=== PATIENT | female | born 1955 | race Caucasian/White ===

== ENCOUNTER 2017-09-25 08:41 | Emergency (ER) | payer MEDICARE, OTHER ==
[~2017-09-25] VITALS: Ht 165.1 cm; Wt 49.9 kg
[~2017-09-25 08:41] MED LIST: BENZ1TAB PO; BISA5TAB64 PO; CALC500T19 PO; CALC625 PO; CARB200 PO; ESZO2 PO; LEVA500T PO; LITH300C2 PO; PERI8.6T PO; POLY3.5O EACH EYE; RISP4TAB41 PO; SYMB160A INH; TRAZ100 PO; VITA100018 PO
[2017-09-25 08:43] VITALS: BP 111/53; PULSE 104; RESP 14; TEMP 97.5; O2SAT 97
[2017-09-25 09:43] LABS: AUTOMATED NEUTROPHIL # 5.2 TH/MM3 (1.8-7.7); BASOPHIL # 0.1 TH/MM3 (0-0.2); BASOPHIL % 1.2 % (0.0-2.0); EOSINOPHIL # 0.1 TH/MM3 (0-0.4); EOSINOPHIL % 0.8 % (0.0-4.0); HEMOGLOBIN 13.3 GM/DL (11.6-15.3); LYMPH % 13.6 % (9.0-44.0); LYMPHOCYTE # 0.9 TH/MM3 (1.0-4.8); MEAN CELL VOLUME 91.6 FL (80.0-100.0); MEAN CORPUSCULAR HEMOGLOBIN 31.2 PG (27.0-34.0); MEAN PLATELET VOLUME 8.1 FL (7.0-11.0); MONO % 5.4 % (0.0-8.0); MONOCYTE # 0.4 TH/MM3 (0-0.9); PLATELET COUNT 295 TH/MM3 (150-450); RED BLOOD COUNT 4.25 MIL/MM3 (4.00-5.30); WHITE BLOOD COUNT 6.6 TH/MM3 (4.0-11.0)
[2017-09-25 09:45] LABS: BACTERIA, URINE RARE /hpf; BILIRUBIN, URINE NEG (NEG); BLOOD, URINE NEG (NEG); GLUCOSE,URINE NEG (NEG); KETONE, URINE 10 mg/dL (NEG); MUCUS URINE FEW /lpf (OCC); NITRITE,URINE NEG (NEG); SQUAMOUS EPITHELIAL CELL URINE 6 /hpf (0-5); URINE COLOR YELLOW (YELLW/STRAW); URINE LEUKOCYTE ESTERASE TRACE (NEG)
[2017-09-25 09:55] LABS: ALBUMIN 3.7 GM/DL (3.4-5.0); AST (GOT) 10 U/L (15-37); BICARBONATE 25.7 MEQ/L (21.0-32.0); BLOOD UREA NITROGEN 10 MG/DL (7-18); CALCIUM 9.1 MG/DL (8.5-10.1); CHLORIDE 109 MEQ/L (98-107); CREATININE 1.03 MG/DL (0.50-1.00); GLOMERULAR FILTRATION RATE 55 ML/MIN (>89); GLUCOSE,RANDOM 108 MG/DL (74-106); SODIUM (NA) 142 MEQ/L (136-145)
[2017-09-25 09:56] LABS: ALT (GPT) 17 U/L (10-53)
--- NOTE | 2017-09-25 09:58 | PD ---
HPI . Poor appetite Chief Complaint: Medical Clearance Time Seen by Provider: 09:05 Travel History International Travel<30 days: No Contact w/Intl Traveler<30days: No Traveled to known affect area: No History of Present Illness HPI This is a psychiatric patient who lives at an assisted living facility who is brought in by a from the facility chief complaint of poor appetite. This is been ongoing for the last several weeks. The song lyricist believes that she has lost about 15 pounds. In addition, the patient has reportedly not been as active as usual. The patient reports that she is a vegetarian and does not like the food served at the [facility]. She states that she buys and eats her own food. Patient herself has no complaints. PFSH Past Medical History Hx Anticoagulant Therapy: No Arthritis: Yes Asthma: No Autoimmune Disease: No Blood Disorders: No Bipolar Disorder: Yes Anxiety: Yes Depression: Yes Heart Rhythm Problems: No Cancer: No Cardiovascular Problems: No High Cholesterol: Yes Chemotherapy: No Chest Pain: No Congestive Heart Failure: No COPD: No Cerebrovascular Accident: No Diabetes: No Diminished Hearing: No Endocrine: No Gastrointestinal Disorders: Yes GERD: No Genitourinary: No Headaches: Yes Hepatitis: No Hiatal Hernia: No Hypertension: No Immune Disorder: No Kidney Stones: No Musculoskeletal: No Neurologic: No Psychiatric: Yes (bipolar,schizoaffective) Reproductive: No Respiratory: Yes Immunizations Current: No (UNABLE TO OBTAIN) Migraines: Yes Myocardial Infarction: No Radiation Therapy: No Renal Failure: No Schizophrenia: Yes Seizures: Yes (witnessed in E.D.,, pt denies hx of) Sleep Apnea: No Ulcer: No Menopausal: Yes : 1 Para: 1 Miscarriage: 0 : 0 Ectopic : No Ovarian Cysts: No Dilation and Curettage (D&C): No Tubal Ligation: No Past Surgical History Abdominal Surgery: No Appendectomy: No Cardiac Surgery: No Section: No Cholecystectomy: No Ear Surgery: No Endocrine Surgery: No Eye Surgery: No Genitourinary Surgery: No Gynecologic Surgery: No Hysterectomy: No Neurologic Surgery: No Oral Surgery: No Pacemaker: No Thoracic Surgery: No Other Surgery: Yes Social History Alcohol Use: No Tobacco Use: Yes Substance Use: No Allergies-Medications (Allergen,Severity, Reaction): Coded Allergies: chlorpromazine (Unverified Allergy, Severe, SWOLLEN TONGUE, 03/18/17) codeine (Unverified Allergy, Severe, 03/18/17) divalproex sodium (Unverified Allergy, Severe, SWOLLEN TONGUE, 03/18/17) haloperidol (Unverified Allergy, Severe, 03/18/17) thioridazine (Unverified Allergy, Severe, SWOLLEN TONGUE, 03/18/17) thiothixene (Unverified Allergy, Severe, 03/18/17) Reported Meds & Prescriptions Reported Meds & Active Scripts Active Polysporin (Bacitracin/Polymyxin B Sulfate) 3.5 Applic/3.5 Gm Oint 1 Applic EACH EYE Q4HR 7 Days Levaquin 500 Mg Tab (Levofloxacin) 500 Mg Tab 500 Mg PO DAILY 7 Days Tegretol 200 Mg Tab (Carbamazepine) 200 Mg Tab 200 Mg PO Q12HR 30 Days Reported Vitamin D (Cholecalciferol) 1,000 Unit Tab 1,000 Unit PO DAILY Trazodone Hcl (Trazodone HCl) 100 Mg Tab 100 Mg PO HS Symbicort (Budesonide/Formoterol Fumarate) 160 Mcg/4.5 Mcg Aer 2 Puff INH BID * SHAKE WELL BEFORE USE * Eskalith ([place] Carbonate) 300 Mg Cap 600 Mg PO HS Fiber Con (Calcium Polycarbophil) 625 Mg Tab 625 Mg PO BID Lunesta (Eszopiclone) 2 Mg Tab 2 Mg PO HS Alexandra-Colace 8.6-50 mg (Sennosides-Docusate Sodium) 1 Tab Tab 1 Tab PO BID Calcium 500 Mg Tab 500 Mg PO DAILY Bisacodyl 5 Mg Tab 5 Mg PO DIRECTED TAKE ON FRIDAY, FRIDAY & FRIDAY @ 4PM Benztropine Mesylate 1 Mg Tab 1 Mg PO BID Risperdal (Risperidone) 4 Mg Tab 4 Mg PO HS Review of Systems General / Constitutional: Positive: Weight Loss Gastrointestinal: Positive: Loss of Appetite Physical Exam Narrative GENERAL: Awake and alert. She is a thin woman. Weight today is 49.9 kg. Her weight in mid August was 54.5 kg. SKIN: warm/dry. Normal color and turgor. HEAD: Normocephalic. Atraumatic. EYES: Pupils equal and round. No scleral icterus. No injection or drainage. ENT: No nasal bleeding or discharge. Mucous membranes pink and moist. NECK: Trachea midline. Full range of motion without pain.. CARDIOVASCULAR: Regular rate and rhythm. RESPIRATORY: No accessory muscle use. Clear to auscultation. Breath sounds equal bilaterally. GASTROINTESTINAL: Abdomen soft. Nontender. Bowel sounds present. Nondistended. MUSCULOSKELETAL: No obvious deformities. NEUROLOGICAL: Awake and alert. No obvious cranial nerve deficits. Motor grossly within normal limits. Normal speech. PSYCHIATRIC: Appropriate mood and affect; insight and judgment normal. Data Data Last Documented VS Vital Signs Date Time Temp Pulse Resp B/P (MAP) Pulse Ox O2 Delivery O2 Flow Rate FiO2 09/25/17 08:43 97.5 104 14 111/53 (72) 97 Orders Orders Complete Blood Count With Diff (09/25/17 09:07) Comprehensive Metabolic Panel (09/25/17 09:07) Thyroid Stimulating Hormone (09/25/17 09:07) Urinalysis - C+S If Indicated (09/25/17 09:07) Drug Screen, Random Urine (09/25/17 09:07) Psych Screen (09/25/17 10:15) Labs Laboratory Tests Test 09/25/17 09:20 09/25/17 09:25 Urine Color YELLOW Urine Turbidity HAZY Urine pH 7.0 Urine Specific [place] 1.009 Urine Protein NEG mg/dL Urine Glucose (UA) NEG mg/dL Urine Ketones 10 mg/dL Urine Occult Blood NEG Urine Nitrite NEG Urine Bilirubin NEG Urine Urobilinogen LESS THAN 2.0 MG/DL Urine Leukocyte Esterase TRACE Urine RBC 1 /hpf Urine WBC 2 /hpf Urine Squamous Epithelial Cells 6 /hpf Urine Bacteria RARE /hpf Urine Mucus FEW /lpf Microscopic Urinalysis Comment CULT NOT INDICATED Urine Opiates Screen NEG Urine Barbiturates Screen NEG Urine Amphetamines Screen NEG Urine Benzodiazepines Screen NEG Urine Cocaine Screen NEG Urine Cannabinoids Screen NEG White Blood Count 6.6 TH/MM3 Red Blood Count 4.25 MIL/MM3 Hemoglobin 13.3 GM/DL Hematocrit 39.0 % Mean Corpuscular Volume 91.6 FL Mean Corpuscular Hemoglobin 31.2 PG Mean Corpuscular Hemoglobin Concent 34.0 % Red Cell Distribution Width 14.0 % Platelet Count 295 TH/MM3 Mean Platelet Volume 8.1 FL Neutrophils (%) (Auto) 79.0 % Lymphocytes (%) (Auto) 13.6 % Monocytes (%) (Auto) 5.4 % Eosinophils (%) (Auto) 0.8 % Basophils (%) (Auto) 1.2 % Neutrophils # (Auto) 5.2 TH/MM3 Lymphocytes # (Auto) 0.9 TH/MM3 Monocytes # (Auto) 0.4 TH/MM3 Eosinophils # (Auto) 0.1 TH/MM3 Basophils # (Auto) 0.1 TH/MM3 CBC Comment DIFF FINAL Differential Comment Blood Urea Nitrogen 10 MG/DL Creatinine 1.03 MG/DL Random Glucose 108 MG/DL Total Protein 6.3 GM/DL Albumin 3.7 GM/DL Calcium Level 9.1 MG/DL Alkaline Phosphatase 39 U/L Aspartate Amino Transf (AST/SGOT) 10 U/L Alanine Aminotransferase (ALT/SGPT) 17 U/L Total Bilirubin 0.5 MG/DL Sodium Level 142 MEQ/L Potassium Level 3.9 MEQ/L Chloride Level 109 MEQ/L Carbon Dioxide Level 25.7 MEQ/L Anion Gap 7 MEQ/L Estimat Glomerular Filtration Rate 55 ML/MIN Thyroid Stimulating Hormone 3rd Gen 0.838 uIU/ML MDM Medical Decision Making Medical Screen Exam Complete: Yes Emergency Medical Condition: Yes Medical Record Reviewed: Yes (she has a history of schizoaffective disorder) Differential Diagnosis Differential diagnosis includes but is not limited to dehydration, malnutrition , depression, occult infection Narrative Course This is a psychiatric patient who lives at an [facility] who is brought in to us by a staff member from the [facility] with the chief complaint of poor appetite and weight loss over the course of the last several weeks. The patient has also reportedly had decreased physical activity. CBC & BMP Diagram 09/25/17 09:25 Total Protein 6.3 L, Albumin 3.7, Calcium Level 9.1, Alkaline Phosphatase 39 L, Aspartate Amino Transf (AST/SGOT) 10 L, Alanine Aminotransferase (ALT/SGPT) 17, Total Bilirubin 0.5 UA and tox screen are negative. She is medically clear for psychiatric evaluation. Diagnosis Primary Impression: Schizoaffective disorder, bipolar type Condition: Stable Concepcion Bowers MD Sep 25, 2017 09:58
[2017-09-25 10:06] LABS: ALKALINE PHOSPHATASE 39 U/L (45-117); TOTAL BILIRUBIN ADULT 0.5 MG/DL (0.2-1.0); TOTAL PROTEIN 6.3 GM/DL (6.4-8.2)
[2017-09-25] MEDS ORDERED: SODIUM CHLOR 0.9% 1000 ML INJ 1,000 ML IV ONE (10:45)
[2017-09-25] MEDS ORDERED: VITA1000 PO (14:11)
[2017-09-25] MEDS ORDERED: LITH300T PO (14:11)
[2017-09-25] MEDS ORDERED: DOCU8.6T PO (14:11)
[2017-09-25] MEDS ORDERED: FLEE5TAB PO (14:11)
[2017-09-25] MEDS ORDERED: INVE6TAB3 PO (14:11)
[2017-09-25] MEDS ORDERED: VENTAER INH (14:11)
[2017-09-25] MEDS ORDERED: IBUP1TAB7 PO (14:11)
[2017-09-25] MEDS ORDERED: MULT-65 PO (14:11)
--- NOTE | 2017-09-25 14:14 | PD ---
Physical Exam Time Seen by Provider: 14:12 CASANDRA Gonzalez has evaluated patient, lipid to be correct and cleared the patient for discharge. The patient will be transported back to her living facility, [facility]. Data Data Last Documented VS Vital Signs Date Time Temp Pulse Resp B/P (MAP) Pulse Ox O2 Delivery O2 Flow Rate FiO2 09/25/17 08:43 97.5 104 14 111/53 (72) 97 Orders Orders Complete Blood Count With Diff (09/25/17 09:07) Comprehensive Metabolic Panel (09/25/17 09:07) Thyroid Stimulating Hormone (09/25/17 09:07) Urinalysis - C+S If Indicated (09/25/17 09:07) Drug Screen, Random Urine (09/25/17 09:07) Psych Screen (09/25/17 10:15) Sodium Chlor 0.9% 1000 Ml Inj (Ns 1000 M (09/25/17 10:45) Diet Regular Basic (09/25/17 Lunch) Labs Laboratory Tests Test 09/25/17 09:20 09/25/17 09:25 Urine Color YELLOW Urine Turbidity HAZY Urine pH 7.0 Urine Specific [place] 1.009 Urine Protein NEG mg/dL Urine Glucose (UA) NEG mg/dL Urine Ketones 10 mg/dL Urine Occult Blood NEG Urine Nitrite NEG Urine Bilirubin NEG Urine Urobilinogen LESS THAN 2.0 MG/DL Urine Leukocyte Esterase TRACE Urine RBC 1 /hpf Urine WBC 2 /hpf Urine Squamous Epithelial Cells 6 /hpf Urine Bacteria RARE /hpf Urine Mucus FEW /lpf Microscopic Urinalysis Comment CULT NOT INDICATED Urine Opiates Screen NEG Urine Barbiturates Screen NEG Urine Amphetamines Screen NEG Urine Benzodiazepines Screen NEG Urine Cocaine Screen NEG Urine Cannabinoids Screen NEG White Blood Count 6.6 TH/MM3 Red Blood Count 4.25 MIL/MM3 Hemoglobin 13.3 GM/DL Hematocrit 39.0 % Mean Corpuscular Volume 91.6 FL Mean Corpuscular Hemoglobin 31.2 PG Mean Corpuscular Hemoglobin Concent 34.0 % Red Cell Distribution Width 14.0 % Platelet Count 295 TH/MM3 Mean Platelet Volume 8.1 FL Neutrophils (%) (Auto) 79.0 % Lymphocytes (%) (Auto) 13.6 % Monocytes (%) (Auto) 5.4 % Eosinophils (%) (Auto) 0.8 % Basophils (%) (Auto) 1.2 % Neutrophils # (Auto) 5.2 TH/MM3 Lymphocytes # (Auto) 0.9 TH/MM3 Monocytes # (Auto) 0.4 TH/MM3 Eosinophils # (Auto) 0.1 TH/MM3 Basophils # (Auto) 0.1 TH/MM3 CBC Comment DIFF FINAL Differential Comment Blood Urea Nitrogen 10 MG/DL Creatinine 1.03 MG/DL Random Glucose 108 MG/DL Total Protein 6.3 GM/DL Albumin 3.7 GM/DL Calcium Level 9.1 MG/DL Alkaline Phosphatase 39 U/L Aspartate Amino Transf (AST/SGOT) 10 U/L Alanine Aminotransferase (ALT/SGPT) 17 U/L Total Bilirubin 0.5 MG/DL Sodium Level 142 MEQ/L Potassium Level 3.9 MEQ/L Chloride Level 109 MEQ/L Carbon Dioxide Level 25.7 MEQ/L Anion Gap 7 MEQ/L Estimat Glomerular Filtration Rate 55 ML/MIN Thyroid Stimulating Hormone 3rd Gen 0.838 uIU/ML MDM Supervised Visit with RADHA: No Narrative Course CASANDRA Driscoll has evaluated patient, lipid to be correct and cleared the patient for discharge. The patient will be transported back to her living facility, [facility]. Patient contracts safety. Denies suicidal or homicidal ideations. Patient will be provided community resource packet to /[facility] for follow-up. Has friends and family for support. Patient was medically cleared by alternate provider prior to psych screening. Patient has been evaluated by psychiatry and and is now cleared for discharge. Diagnosis Primary Impression: Schizoaffective disorder, bipolar type Referrals: [facility] (Out patient) [facility] Primary Care Physician Psychiatrist Tyra WEAVER Behavioral Patient Instructions: General Instructions, Schizoaffective Disorder (ED) Additional Instruction: Contract safety to your self and others Follow-up with psychiatry Follow-up with primary care provider Follow-up with Chris Demarco Return to the emergency department immediately with worsening of symptoms Med/Other Pt SpecificInfo: No Change to Meds, No Meds Exist/No RX given Disposition: 01 DISCHARGE HOME Condition: Stable Shira Hart Sep 25, 2017 14:14
--- NOTE | 2017-09-25 14:24 | PD ---
History of Present Illness Chief Complaint: Schizoaffective disorder Time Seen by Provider: 13:55 Travel History International Travel<30 Days: No Contact w/Intl Traveler<30days: No Known affected area: No Legal Status Legal Status: Voluntary History of Present Illness: 61-year-old single female presents voluntarily to the emergency department from [facility] for not eating. Patient denies having any complaints other than "I do not like the food". She denies SI, HI, audiovisual hallucinations, and does not appear delusional. Reviewed electronic medical record and labs. Discussed patient with staff. Patient was evaluated in [facility]. She is awake alert and oriented. Patient has slender frame and is well-groomed. Her speech is clear and organized. She denies feeling depressed. When asked why she was here she responded "they say I have not been eating". When asked why she was not eating she responded "because I do not like the food". She also states that she is not happy with the facility conditions nor the area which is located. Patient does not meet criteria for admission. PFSH Past Medical History Narrative Medical Medically cleared in the emergency department. Hx Anticoagulant Therapy: No Arthritis: Yes Asthma: No Autoimmune Disease: No Blood Disorders: No Bipolar Disorder: Yes Anxiety: Yes Depression: Yes Heart Rhythm Problems: No Cancer: No Cardiovascular Problems: No High Cholesterol: Yes Chemotherapy: No Chest Pain: No Congestive Heart Failure: No COPD: No Cerebrovascular Accident: No Diabetes: No Diminished Hearing: No Endocrine: No Gastrointestinal Disorders: Yes GERD: No Genitourinary: No Headaches: Yes Hepatitis: No Hiatal Hernia: No Hypertension: No Immune Disorder: No Kidney Stones: No Musculoskeletal: No Neurologic: No Psychiatric: Yes (bipolar,schizoaffective) Reproductive: No Respiratory: Yes Immunizations Current: No (UNABLE TO OBTAIN) Migraines: Yes Myocardial Infarction: No Radiation Therapy: No Renal Failure: No Schizophrenia: Yes Seizures: Yes (witnessed in E.D.,, pt denies hx of) Sleep Apnea: No Ulcer: No Menopausal: Yes : 1 Para: 1 Miscarriage: 0 : 0 Ectopic : No Ovarian Cysts: No Dilation and Curettage (D&C): No Tubal Ligation: No Past Surgical History Abdominal Surgery: No Appendectomy: No Cardiac Surgery: No Section: No Cholecystectomy: No Ear Surgery: No Endocrine Surgery: No Eye Surgery: No Genitourinary Surgery: No Gynecologic Surgery: No Hysterectomy: No Neurologic Surgery: No Oral Surgery: No Pacemaker: No Thoracic Surgery: No Other Surgery: Yes Psychiatric History Psychiatric History Patient has extensive psychiatric history with multiple admissions here and to [facility]. Hx Psychiatric Treatment: PT HAS A LONG HISTORY MENTAL ILLNESS, SCHIZOAFFECTIVE DISORDER , DEPRESSION. PER OLD RECORDS HAS HAD ECT TREATMENTS. PT HAS BEEN ADMITTED TO [facility] AND [facility] History of Inpatient Treatment: Yes Guns or firearms in home: No Social History Resides at [facility] for ~ past 3 years. Hx Alcohol Use: No Hx Tobacco Use: Yes Hx Substance Use: No Substance Use Type: Nicotine/Cigarettes Other Substances Used: DENIED Hx of Substance Use Treatment: No Allergies-Medications (Allergen,Severity, Reaction): Coded Allergies: chlorpromazine (Unverified Allergy, Severe, SWOLLEN TONGUE, 03/18/17) codeine (Unverified Allergy, Severe, 03/18/17) divalproex sodium (Unverified Allergy, Severe, SWOLLEN TONGUE, 03/18/17) haloperidol (Unverified Allergy, Severe, 03/18/17) thioridazine (Unverified Allergy, Severe, SWOLLEN TONGUE, 03/18/17) thiothixene (Unverified Allergy, Severe, 03/18/17) Reported Meds & Prescriptions Reported Meds & Active Scripts Active Narrative Medication Compliant with medications. Mental Status Examination Appearance: Appropriate, Well dressed/well groomed Consciousness: Alert Orientation: x4 Motor Activity: Normal gait Speech: Unremarkable Language: Adequate Fund of Knowledge: Adequate Attention and Concentration: Adequate Memory: Impaired (Reports memory loss due to multiple ECTs) Mood: Appropriate Affect: Appropriate Thought Process & Associations: Intact Thought Content: Appropriate Hallucination Type: None Delusion Type: None Suicidal Ideation: No Suicidal Plan: No Suicidal Intention: No Homicidal Ideation: No Homicidal Plan: No Homicidal Intention: No Insight: Adequate Judgment: Adequate [facility] Medical Decision Making Medical Record Reviewed: Yes Assessment/Plan 61-year-old single, female presents voluntarily to the emergency department for reports of not eating. Although patient has an extensive psychiatric history and multiple inpatient admissions, she does not meet admission criteria at this time. She denies thoughts of self-harm, harming anyone else, auditory or visual hallucinations, and this provider cannot elicit any indications of delusions. Patient is compliant with medications. She reports that she is not eating due to a dislike of the food provided and the facility in general. Advised patient that she will be discharged back to [facility] as this is a social issue, and if she is unhappy there she should seek out alternative living arrangements. Request HC Surrog/Guard Advoc?: No Orders Orders Complete Blood Count With Diff (09/25/17 09:07) Comprehensive Metabolic Panel (09/25/17 09:07) Thyroid Stimulating Hormone (09/25/17 09:07) Urinalysis - C+S If Indicated (09/25/17 09:07) Drug Screen, Random Urine (09/25/17 09:07) Psych Screen (09/25/17 10:15) Sodium Chlor 0.9% 1000 Ml Inj (Ns 1000 M (09/25/17 10:45) Diet Regular Basic (09/25/17 Lunch) Results Vital Signs Date Time Temp Pulse Resp B/P (MAP) Pulse Ox O2 Delivery O2 Flow Rate FiO2 09/25/17 08:43 97.5 104 14 111/53 (72) 97 Laboratory Tests Test 09/25/17 09:20 09/25/17 09:25 Urine Color YELLOW Urine Turbidity HAZY Urine pH 7.0 Urine Specific [place] 1.009 Urine Protein NEG Urine Glucose (UA) NEG Urine Ketones 10 Urine Occult Blood NEG Urine Nitrite NEG Urine Bilirubin NEG Urine Urobilinogen LESS THAN 2.0 Urine Leukocyte Esterase TRACE Urine RBC 1 Urine WBC 2 Urine Squamous Epithelial Cells 6 Urine Bacteria RARE Urine Mucus FEW Microscopic Urinalysis Comment CULT NOT INDICATED Urine Opiates Screen NEG Urine Barbiturates Screen NEG Urine Amphetamines Screen NEG Urine Benzodiazepines Screen NEG Urine Cocaine Screen NEG Urine Cannabinoids Screen NEG White Blood Count 6.6 Red Blood Count 4.25 Hemoglobin 13.3 Hematocrit 39.0 Mean Corpuscular Volume 91.6 Mean Corpuscular Hemoglobin 31.2 Mean Corpuscular Hemoglobin Concent 34.0 Red Cell Distribution Width 14.0 Platelet Count 295 Mean Platelet Volume 8.1 Neutrophils (%) (Auto) 79.0 Lymphocytes (%) (Auto) 13.6 Monocytes (%) (Auto) 5.4 Eosinophils (%) (Auto) 0.8 Basophils (%) (Auto) 1.2 Neutrophils # (Auto) 5.2 Lymphocytes # (Auto) 0.9 Monocytes # (Auto) 0.4 Eosinophils # (Auto) 0.1 Basophils # (Auto) 0.1 CBC Comment DIFF FINAL Differential Comment Blood Urea Nitrogen 10 Creatinine 1.03 Random Glucose 108 Total Protein 6.3 Albumin 3.7 Calcium Level 9.1 Alkaline Phosphatase 39 Aspartate Amino Transf (AST/SGOT) 10 Alanine Aminotransferase (ALT/SGPT) 17 Total Bilirubin 0.5 Sodium Level 142 Potassium Level 3.9 Chloride Level 109 Carbon Dioxide Level 25.7 Anion Gap 7 Estimat Glomerular Filtration Rate 55 Thyroid Stimulating Hormone 3rd Gen 0.838 Diagnosis Primary Impression: Schizoaffective disorder, bipolar type Condition: Stable Donna Sumner Sep 25, 2017 14:24
== END 2017-09-25 16:47 | disposition home or self-care (01) ==
LOC: NEPJ 08:41
DX: F25.0 Schizoaffective disorder, bipolar type (principal); F17.210 Nicotine dependence, cigarettes, uncomplicated; Z79.899 Other long term (current) drug therapy
CPT/HCPCS: 80053; 80307; 81001; 84443; 85025; 99283; J7030

== ENCOUNTER 2017-10-15 15:35 | Emergency (ER) | payer MEDICARE, OTHER ==
[~2017-10-15] VITALS: Ht 162.6 cm; Wt 48.0 kg
[~2017-10-15 15:35] MED LIST changes: -BENZ1TAB PO; -BISA5TAB64 PO; -CALC500T19 PO; -CALC625 PO; -CARB200 PO; +DOCU8.6T PO; -ESZO2 PO; +FLEE5TAB PO; +IBUP1TAB7 PO; +INVE6TAB3 PO; -LEVA500T PO; -LITH300C2 PO; +LITH300T PO; +MULT-65 PO; -PERI8.6T PO; -POLY3.5O EACH EYE; -RISP4TAB41 PO; -SYMB160A INH; -TRAZ100 PO; +VENTAER INH; +VITA1000 PO; -VITA100018 PO
[2017-10-15 16:05] VITALS: BP 93/57; PULSE 87; RESP 17; TEMP 98.5; O2SAT 100
--- NOTE | 2017-10-15 17:28 | PD ---
HPI Chief Complaint: Complaint Time Seen by Provider: 16:51 Travel History International Travel<30 days: No Contact w/Intl Traveler<30days: No Traveled to known affect area: No History of Present Illness HPI 62-year-old female complains memory problem and problem with urination and bowel movement. Patient has history of bipolar disorder and schizophrenia. Patient states that for the past 2 months she has problem with short-term and long-term memory. Patient denies any headache. Patient denies any visual change. Patient denies any neck pain. Patient denies any chest pain or shortness of breath. Patient denies abdominal pain. Patient states that she has decreased urine output recently. Patient states that she only urinate with bowel movement. Patient denies any nausea vomiting diarrhea. Patient denies any dysuria or frequency. Patient denies any vaginal discharge or bleeding. PFSH Past Medical History Hx Anticoagulant Therapy: No Arthritis: Yes Asthma: No Autoimmune Disease: No Blood Disorders: No Bipolar Disorder: Yes Anxiety: Yes Depression: Yes Heart Rhythm Problems: No Cancer: No Cardiovascular Problems: No High Cholesterol: Yes Chemotherapy: No Chest Pain: No Congestive Heart Failure: No COPD: No Cerebrovascular Accident: No Diabetes: No Diminished Hearing: No Endocrine: No Gastrointestinal Disorders: Yes GERD: No Genitourinary: No Headaches: Yes Hepatitis: No Hiatal Hernia: No Hypertension: No Immune Disorder: No Kidney Stones: No Musculoskeletal: No Neurologic: No Psychiatric: Yes (bipolar,schizoaffective) Reproductive: No Respiratory: Yes Immunizations Current: No (UNABLE TO OBTAIN) Migraines: Yes Myocardial Infarction: No Radiation Therapy: No Renal Failure: No Schizophrenia: Yes Seizures: Yes (witnessed in E.D.,, pt denies hx of) Sleep Apnea: No Ulcer: No ?: Not Menopausal: Yes : 1 Para: 1 Miscarriage: 0 : 0 Ectopic : No Ovarian Cysts: No Dilation and Curettage (D&C): No Tubal Ligation: No Past Surgical History Abdominal Surgery: No Appendectomy: No Cardiac Surgery: No Section: No Cholecystectomy: No Ear Surgery: No Endocrine Surgery: No Eye Surgery: No Genitourinary Surgery: No Gynecologic Surgery: No Hysterectomy: No Neurologic Surgery: No Oral Surgery: No Pacemaker: No Thoracic Surgery: No Other Surgery: Yes ("CHILDBIRTH") Social History Alcohol Use: No Tobacco Use: Yes Substance Use: Yes (denies) Allergies-Medications (Allergen,Severity, Reaction): Coded Allergies: chlorpromazine (Unverified Allergy, Severe, SWOLLEN TONGUE, 10/15/17) codeine (Unverified Allergy, Severe, 10/15/17) divalproex sodium (Unverified Allergy, Severe, SWOLLEN TONGUE, 10/15/17) haloperidol (Unverified Allergy, Severe, 10/15/17) thioridazine (Unverified Allergy, Severe, SWOLLEN TONGUE, 10/15/17) thiothixene (Unverified Allergy, Severe, 10/15/17) Reported Meds & Prescriptions Reported Meds & Active Scripts Active Reported Vitamin D-1000 (Cholecalciferol) 1,000 Unit Tab 1,000 Units PO DAILY Ventolin Hfa 18 GM Inh (Albuterol Sulfate) 90 Mcg/Act Aer 2 Puff INH BID Multi-Vitamin Daily (Multiple Vitamin) 1 Tab Tab 1 Tab PO DAILY [place] Carbonate ER ([place] Carbonate) 300 Mg Tab 300 Mg PO HS Invega (Paliperidone ER) 6 Mg Tab 6 Mg PO DAILY Ibuprofen 800 Mg Tab 800 Mg PO DAILY Docusate Sodium-Senna (Sennosides-Docusate Sodium) 8.6-50 Mg Tab 1 Tab PO BID Bisacodyl EC (Bisacodyl) 5 Mg Tabec 5 Mg PO HS PRN Review of Systems General / Constitutional: No: Fever Eyes: No: Visual changes HENT: No: Headaches Cardiovascular: No: Chest Pain or Discomfort Respiratory: No: Shortness of Breath Gastrointestinal: No: Abdominal Pain Genitourinary: No: Dysuria Musculoskeletal: No: Pain Skin: No Rash Neurologic: No: Weakness Psychiatric: No: Depression Endocrine: No: Polydipsia Hematologic/Lymphatic: No: Easy Bruising Physical Exam Narrative GENERAL: Well-nourished, well-developed patient. SKIN: Focused skin assessment warm/dry. HEAD: Normocephalic. EYES: No scleral icterus. No injection or drainage. NECK: Supple, trachea midline. No JVD or lymphadenopathy. CARDIOVASCULAR: Regular rate and rhythm without murmurs, gallops, or rubs. RESPIRATORY: Breath sounds equal bilaterally. No accessory muscle use. GASTROINTESTINAL: Abdomen soft, non-tender, nondistended. MUSCULOSKELETAL: No cyanosis, or edema. BACK: Nontender without obvious deformity. No CVA tenderness. Neurologic exam normal. Patient has no short-term or long-term memory deficit on examination today. Patient moves all extremity well. Neurologic exam normal. Data Data Last Documented VS Vital Signs Date Time Temp Pulse Resp B/P (MAP) Pulse Ox O2 Delivery O2 Flow Rate FiO2 10/15/17 16:05 98.5 87 17 93/57 (69) 100 Orders Orders Ed Discharge Order (10/15/17 17:06) MDM Medical Decision Making Medical Screen Exam Complete: Yes Emergency Medical Condition: Yes Differential Diagnosis Differential diagnosis including anxiety, schizophrenia, bipolar disorder. Narrative Course 62-year-old female with complains of short and long-term memory problem. Examination today reveals no deficit of short-term or long-term memory. Abdomen soft and benign. No urinary or bowel problem detectable today. Diagnosis Primary Impression: Schizoaffective disorder, bipolar type Fransico Cameron MD Oct 15, 2017 17:28
== END 2017-10-15 17:32 | disposition home or self-care (01) ==
LOC: NEPE 15:35
DX: F25.0 Schizoaffective disorder, bipolar type (principal); E78.00 Pure hypercholesterolemia, unspecified; Z72.0 Tobacco use; Z88.8 Allergy status to other drugs, medicaments and biological substances; Z79.899 Other long term (current) drug therapy
CPT/HCPCS: 99282

== ENCOUNTER 2017-11-06 17:44 | Inpatient (IN) | payer MEDICARE, OTHER ==
[~2017-11-06] VITALS: Ht 162.6 cm; Wt 54.9 kg
[2017-11-06 17:53] VITALS: BP 89/44; PULSE 50; RESP 15; TEMP 97.6; O2SAT 99
[2017-11-06 18:09] VITALS: BP 92/50; PULSE 50; RESP 19; TEMP 98.1; O2SAT 98
[2017-11-06] MEDS ORDERED: SODIUM CHLOR 0.9% 1000 ML INJ 1,000 ML IV ONE (18:15)
[2017-11-06] MEDS ORDERED: BUPR75TA PO (18:49)
[2017-11-06] MEDS ORDERED: VORT1TAB2 PO (18:49)
[2017-11-06 19:20] LABS: AUTOMATED NEUTROPHIL # 4.9 TH/MM3 (1.8-7.7); BASOPHIL % 0.7 % (0.0-2.0); EOSINOPHIL # 0.2 TH/MM3 (0-0.4); EOSINOPHIL % 2.8 % (0.0-4.0); HEMATOCRIT 34.2 % (35.0-46.0); HEMOGLOBIN 11.7 GM/DL (11.6-15.3); LYMPH % 23.6 % (9.0-44.0); LYMPHOCYTE # 1.8 TH/MM3 (1.0-4.8); MEAN CELL VOLUME 92.9 FL (80.0-100.0); MEAN CORPUSCULAR HEMOGLOBIN 31.9 PG (27.0-34.0); MEAN CORPUSCULAR HGB CONC 34.3 % (32.0-36.0); MEAN PLATELET VOLUME 9.2 FL (7.0-11.0); MONO % 7.1 % (0.0-8.0); MONOCYTE # 0.5 TH/MM3 (0-0.9); NEUT % 65.8 % (16.0-70.0); PLATELET COUNT 243 TH/MM3 (150-450); RED BLOOD COUNT 3.68 MIL/MM3 (4.00-5.30); RED CELL DISTRIBUTION WIDTH 14.4 % (11.6-17.2); WHITE BLOOD COUNT 7.4 TH/MM3 (4.0-11.0)
[2017-11-06 19:34] LABS: ALBUMIN 3.6 GM/DL (3.4-5.0); BICARBONATE 27.5 MEQ/L (21.0-32.0); BLOOD UREA NITROGEN 21 MG/DL (7-18); CALCIUM 8.6 MG/DL (8.5-10.1); CHLORIDE 106 MEQ/L (98-107); CREATININE 1.06 MG/DL (0.50-1.00); GLOMERULAR FILTRATION RATE 53 ML/MIN (>89); GLUCOSE,RANDOM 89 MG/DL (74-106); SODIUM (NA) 141 MEQ/L (136-145)
[2017-11-06 19:35] LABS: ALT (GPT) 32 U/L (10-53); AST (GOT) 16 U/L (15-37)
[2017-11-06 19:38] LABS: ALKALINE PHOSPHATASE 37 U/L (45-117); TOTAL BILIRUBIN ADULT 0.1 MG/DL (0.2-1.0); TOTAL PROTEIN 6.4 GM/DL (6.4-8.2)
[2017-11-06 22:00] VITALS: BP 105/63; PULSE 61; RESP 16; O2SAT 99
[2017-11-07 02:00] VITALS: BP 99/48; PULSE 57; RESP 16; O2SAT 99
[2017-11-07 02:22] LABS: AMORPHOUS SEDIMENT, URINE RARE; BILIRUBIN, URINE NEG (NEG); BLOOD, URINE NEG (NEG); GLUCOSE,URINE NEG (NEG); HYALINE CAST, URINE 20 /lpf (RARE); KETONE, URINE NEG (NEG); MUCUS URINE FEW /lpf (OCC); NITRITE,URINE NEG (NEG); PH, URINE 6.5 (5.0-8.5); RENAL EPITHELIAL CELLS <1 /hpf; SQUAMOUS EPITHELIAL CELL URINE 4 /hpf (0-5); URINE COLOR LIGHT-YELLOW (YELLW/STRAW); URINE LEUKOCYTE ESTERASE NEG (NEG)
--- NOTE | 2017-11-07 05:43 | PD ---
HPI Chief Complaint: Medical Clearance Time Seen by Provider: 19:10 Travel History International Travel<30 days: No Contact w/Intl Traveler<30days: No Traveled to known affect area: No History of Present Illness HPI Patient is a 62-year-old female who was court ordered to recovery program and she is here under court order she is lying in the bed cooperative sleeping she is medically cleared. Apparently she has not been eating nor taking care of herself , She has been losing weight and not taking care of her ADLs according to the transfer papers [facility] Past Medical History Hx Anticoagulant Therapy: No Arthritis: Yes Asthma: No Autoimmune Disease: No Blood Disorders: No Bipolar Disorder: Yes Anxiety: Yes Depression: Yes Heart Rhythm Problems: No Cancer: No Cardiovascular Problems: No High Cholesterol: Yes Chemotherapy: No Chest Pain: No Congestive Heart Failure: No COPD: No Cerebrovascular Accident: No Diabetes: No Diminished Hearing: No Endocrine: No Gastrointestinal Disorders: Yes GERD: No Genitourinary: No Headaches: Yes Hepatitis: No Hiatal Hernia: No Hypertension: No Immune Disorder: No Kidney Stones: No Musculoskeletal: No Neurologic: No Psychiatric: Yes (bipolar,schizoaffective) Reproductive: No Respiratory: Yes Immunizations Current: No Migraines: Yes Myocardial Infarction: No Radiation Therapy: No Renal Failure: No Schizophrenia: Yes Seizures: Yes (witnessed in E.D.,, pt denies hx of) Sleep Apnea: No Ulcer: No Tetanus Vaccination: Unknown Influenza Vaccination: Yes Menopausal: Yes : 1 Para: 1 Miscarriage: 0 : 0 Ectopic : No Ovarian Cysts: No Dilation and Curettage (D&C): No Tubal Ligation: No Past Surgical History Abdominal Surgery: No Appendectomy: No Cardiac Surgery: No Section: No Cholecystectomy: No Ear Surgery: No Endocrine Surgery: No Eye Surgery: No Genitourinary Surgery: No Gynecologic Surgery: No Hysterectomy: No Neurologic Surgery: No Oral Surgery: No Pacemaker: No Thoracic Surgery: No Other Surgery: Yes ("CHILDBIRTH") Social History Alcohol Use: No Tobacco Use: Yes (1 ppd) Substance Use: No (denies) Allergies-Medications (Allergen,Severity, Reaction): Coded Allergies: chlorpromazine (Unverified Allergy, Severe, SWOLLEN TONGUE, 11/06/17) codeine (Unverified Allergy, Severe, 11/06/17) divalproex sodium (Unverified Allergy, Severe, SWOLLEN TONGUE, 11/06/17) haloperidol (Unverified Allergy, Severe, 11/06/17) thioridazine (Unverified Allergy, Severe, SWOLLEN TONGUE, 11/06/17) thiothixene (Unverified Allergy, Severe, 11/06/17) Reported Meds & Prescriptions Reported Meds & Active Scripts Active Reported Bupropion HCl 75 Mg Tab 150 Mg PO DAILY Trintellix (Vortioxetine) 10 Mg Tab 10 Mg PO DAILY Vitamin D-1000 (Cholecalciferol) 1,000 Unit Tab 1,000 Units PO DAILY Ventolin Hfa 18 GM Inh (Albuterol Sulfate) 90 Mcg/Act Aer 2 Puff INH BID Multi-Vitamin Daily (Multiple Vitamin) 1 Tab Tab 1 Tab PO DAILY Invega (Paliperidone ER) 6 Mg Tab 6 Mg PO DAILY Ibuprofen 800 Mg Tab 800 Mg PO DAILY Docusate Sodium-Senna (Sennosides-Docusate Sodium) 8.6-50 Mg Tab 1 Tab PO BID Bisacodyl EC (Bisacodyl) 5 Mg Tabec 5 Mg PO HS PRN Review of Systems Except as stated in HPI: all other systems reviewed are Neg Physical Exam Narrative GENERAL: Thin cachectic and mildly abnormal bizarre behavior SKIN: Warm and dry. HEAD: Atraumatic. Normocephalic. EYES: Pupils equal and round. No scleral icterus. No injection or drainage. ENT: No nasal bleeding or discharge. Mucous membranes pink and moist. NECK: Trachea midline. No JVD. CARDIOVASCULAR: Regular rate and rhythm. RESPIRATORY: No accessory muscle use. Clear to auscultation. Breath sounds equal bilaterally. GASTROINTESTINAL: Abdomen soft, non-tender, nondistended. Hepatic and splenic margins not palpable. MUSCULOSKELETAL: Extremities without clubbing, cyanosis, or edema. No obvious deformities. NEUROLOGICAL: no focal deficits Data Data Last Documented VS Vital Signs Date Time Temp Pulse Resp B/P (MAP) Pulse Ox O2 Delivery O2 Flow Rate FiO2 11/07/17 02:00 57 16 99/48 (65) 99 Room Air 11/06/17 18:09 98.1 Orders Orders Complete Blood Count With Diff (11/06/17 18:14) Comprehensive Metabolic Panel (11/06/17 18:14) Urinalysis - C+S If Indicated (11/06/17 18:14) Oximetry (11/06/17 18:14) Iv Access Insert/Monitor (11/06/17 18:14) Ecg Monitoring (11/06/17 18:14) Drug Screen, Random Urine (11/06/17 18:14) Alcohol (Ethanol) (11/06/17 18:14) Sodium Chlor 0.9% 1000 Ml Inj (Ns 1000 M (11/06/17 18:15) Diet Regular Basic (11/07/17 Breakfast) Psych Screen (11/07/17 07:48) Admit Order (Ed Use Only) (11/07/17 ) Labs Laboratory Tests Test 11/06/17 18:35 11/07/17 01:30 White Blood Count 7.4 TH/MM3 Red Blood Count 3.68 MIL/MM3 Hemoglobin 11.7 GM/DL Hematocrit 34.2 % Mean Corpuscular Volume 92.9 FL Mean Corpuscular Hemoglobin 31.9 PG Mean Corpuscular Hemoglobin Concent 34.3 % Red Cell Distribution Width 14.4 % Platelet Count 243 TH/MM3 Mean Platelet Volume 9.2 FL Neutrophils (%) (Auto) 65.8 % Lymphocytes (%) (Auto) 23.6 % Monocytes (%) (Auto) 7.1 % Eosinophils (%) (Auto) 2.8 % Basophils (%) (Auto) 0.7 % Neutrophils # (Auto) 4.9 TH/MM3 Lymphocytes # (Auto) 1.8 TH/MM3 Monocytes # (Auto) 0.5 TH/MM3 Eosinophils # (Auto) 0.2 TH/MM3 Basophils # (Auto) 0.0 TH/MM3 CBC Comment DIFF FINAL Differential Comment Blood Urea Nitrogen 21 MG/DL Creatinine 1.06 MG/DL Random Glucose 89 MG/DL Total Protein 6.4 GM/DL Albumin 3.6 GM/DL Calcium Level 8.6 MG/DL Alkaline Phosphatase 37 U/L Aspartate Amino Transf (AST/SGOT) 16 U/L Alanine Aminotransferase (ALT/SGPT) 32 U/L Total Bilirubin 0.1 MG/DL Sodium Level 141 MEQ/L Potassium Level 4.2 MEQ/L Chloride Level 106 MEQ/L Carbon Dioxide Level 27.5 MEQ/L Anion Gap 8 MEQ/L Estimat Glomerular Filtration Rate 53 ML/MIN Ethyl Alcohol Level LESS THAN 3 MG/DL Urine Color LIGHT-YELLOW Urine Turbidity CLEAR Urine pH 6.5 Urine Specific [place] 1.013 Urine Protein NEG mg/dL Urine Glucose (UA) NEG mg/dL Urine Ketones NEG mg/dL Urine Occult Blood NEG Urine Nitrite NEG Urine Bilirubin NEG Urine Urobilinogen LESS THAN 2.0 MG/DL Urine Leukocyte Esterase NEG Urine RBC 1 /hpf Urine WBC 6 /hpf Urine Squamous Epithelial Cells 4 /hpf Urine Renal Epithelial Cells <1 /hpf Urine Amorphous Sediment RARE Urine Hyaline Casts 20 /lpf Urine Mucus FEW /lpf Microscopic Urinalysis Comment CULT NOT INDICATED Urine Opiates Screen NEG Urine Barbiturates Screen NEG Urine Amphetamines Screen NEG Urine Benzodiazepines Screen NEG Urine Cocaine Screen NEG Urine Cannabinoids Screen NEG MDM Medical Decision Making Medical Screen Exam Complete: Yes Emergency Medical Condition: Yes Medical Record Reviewed: Yes Differential Diagnosis depression , etoh abuse vs chronically ill , vs anorexia , bullemia , vs GI illness , liver pancreatitic digestive issues Narrative Course Patient is medically cleared for psych eval and dispo Diagnosis Primary Impression: Medical clearance for psychiatric admission Chase Flynn MD Nov 07, 2017 05:43
[2017-11-07] MEDS ORDERED: NICOTINE 21 MG/24 HR PATCH T-DERMAL PRN (17:15)
[2017-11-07] MEDS ORDERED: ACETAMINOPHEN 325 MG TAB PO PRN (17:15)
[2017-11-07] MEDS ORDERED: LORazepam 2 MG/ML VIAL IM PRN (17:15)
[2017-11-07] MEDS ORDERED: MAGNESIUM HYDROXIDE SUSP 30 ML CUP PO PRN (17:15)
[2017-11-07] MEDS ORDERED: BENZTROPINE MESYLATE 1 MG TAB PO PRN (17:15)
[2017-11-07] MEDS ORDERED: ALUMINUM/MAGNESIUM/SIMETH 30 ML CUP PO PRN (17:15)
[2017-11-07] MEDS ORDERED: BENZTROPINE MESYLATE 2 MG/2 ML VIAL IM PRN (17:15)
--- NOTE | 2017-11-07 17:22 | HHI.HP ---
Provisional Diagnosis Admission Date 11/07/17 [place] I. 1. Schizoaffective disorder, other type, acute exacerbation [place] II. Deferred Certification of Person's Competence To Provide Express and Informed Consent I have personally examined Lesli Rollins , a person being served at [facility] on, Nov 07, 2017 17:05. Express and informed consent means consent voluntarily given in writing, by a competent person, after sufficient explanation and disclosure of the subject matter involved to enable the person to make a knowing and willful decision without any element of force, fraud, deceit, duress, or other form of constraint or coercion. This person is 18 years of age or older, is not now known to be incompetent to consent to treatment with a guardian advocate, and does not have a health care surrogate or proxy currently making medical treatment decisions. I have found this person to be one of the following: [] Competent to provide express and informed consent, as defined above, for voluntary admission to this facility and is competent to provide express and informed consent for treatment. He/she has the consistent capacity to make well reasoned, willful, and knowing decisions concerning his or her medical or mental health treatment. The person fully and consistently understands the purpose of the admission for examination/placement and is fully capable of personally exercising all rights assured [place] [x] Incompetent to provide express and informed consent to voluntary admission, and this is incompetent to provide express and informed consent to treatment. The person must be transferred to involuntary status and a petition for a guardian advocate filed with the Circuit Court. [] Refusing to provide express and informed consent to voluntary admission but is competent to provide express and informed consent for treatment. The person must be discharged or transferred to involuntary status. Form shall be completed within 24 hours of a person's arrival at the receiving facility and filed in the clinical record of each person: 1. Admitted on a voluntary basis 2. Permitted to provide express and informed consent to his/her own treatment 3. Allowed to transfer from involuntary to voluntary status 4. Prior to permitting a person to consent to his or her own treatment after having been previously found incompetent to consent to treatment. History of Present Illness Capacity: Lacks Capacity Psych Chief Complaint: Psychosis, self-care deficit HPI Ms. Rollins is a 62-year-old female with a history of schizoaffective disorder who presents under an ex parte order initiated by rifle case repairer. Ex parte alleges patient has been refusing food and has lost 20% of her body weight. Accompanying the ex parte is a MAR from her [facility] facility, and I note the patient has been receiving Invega, Trintellix and Wellbutrin. [place] was recently discontinued. Reviewing the electronic medical record, I note that the patient was admitted under Dr. Suggs in 2012. Patient seen and examined. Chart reviewed. Case discussed with nursing staff. On my examination today, the patient presents as irritable and somewhat hypervigilant. She insists "I am not digesting my food. All the sudden, my system took a dysfunction." She believes that food is being stored in her abdomen and in her arms. She believes these areas of her body are filled with "hard, undigested food." She does pass flatus during the interview. She is in denial about reported weight loss. When asked about SI/HI, she replies "I'd like this suffering to be over with." No reported urge to hurt herself on the inpatient unit. Affect is dysphoric and irritable. She is psychomotor agitated and paces during the interview. She is somewhat disinhibited and disrobes in order to show me the food she feels is collecting in her abdomen. Remainder of the psychiatric ROS is negative. No other acute physical complaints. Past psychiatric history: The patient has a history of schizoaffective disorder. She follows with the FACT team. She reports that she is adherent with her medications but does not feel they are helping. She was previously admitted to the inpatient unit here as noted above. She reports 1 previous suicide attempt about a decade ago in which she cut herself with a can lid. She has a history of ECT in the past. Family history: The patient reports that her mother had some sort of mental illness. She denies a family history of suicide. Chemical dependency history: The patient denies any abuse of drugs or alcohol. Social history: The patient reports that she has been residing at [facility] for 4 years. She says that she is not happy there. She is single. She has a daughter and 3 grandchildren. She is high school educated. She collects SSI. She denies any history. Denies any access to guns or firearms. She believes in God she says. She does allude to a history of trauma but reports no PTSD symptoms at this time. Spoke with patient's daughter over the phone at number listed in EMR. She is willing to act as healthcare surrogate. She provides consent for medications as detailed below after discussion of the R/B/A. Review of Systems ROS Limitations: Psychotic, Poor Historian Except as stated in HPI: all other systems reviewed are Neg Past Family Social History Coded Allergies: chlorpromazine (Unverified Allergy, Severe, SWOLLEN TONGUE, 11/06/17) codeine (Unverified Allergy, Severe, 11/06/17) divalproex sodium (Unverified Allergy, Severe, SWOLLEN TONGUE, 11/06/17) haloperidol (Unverified Allergy, Severe, 11/06/17) thioridazine (Unverified Allergy, Severe, SWOLLEN TONGUE, 11/06/17) thiothixene (Unverified Allergy, Severe, 11/06/17) Past Medical History See electronic medical record Reported Medications Bupropion HCl (Bupropion HCl) 75 Mg Tab, 150 MG PO DAILY for Control Depression , TAB 0 Refills 11/06/17 Vortioxetine (Trintellix) 10 Mg Tab, 10 MG PO DAILY for Control Depression, #30 TAB 0 Refills 11/06/17 Cholecalciferol (Vitamin D-1000) 1,000 Unit Tab, 1000 UNITS PO DAILY for Nutritional Supplement, #1 BOTTLE 0 Refills 09/25/17 Albuterol 18 GM Inh (Ventolin Hfa 18 GM Inh) 90 Mcg/Act Aer, 2 PUFF INH BID, #1 INHALER 0 Refills 09/25/17 Multiple Vitamin (Multi-Vitamin Daily) 1 Tab Tab, 1 TAB PO DAILY for Nutritional Supplement, TAB 0 Refills 09/25/17 Paliperidone ER (Invega) 6 Mg Tab, 6 MG PO DAILY for Schizophrenia, #30 TAB 0 Refills 09/25/17 Ibuprofen (Ibuprofen) 800 Mg Tab, 800 MG PO DAILY, #40 TAB 0 Refills 09/25/17 Sennosides-Docusate Sodium (Docusate Sodium-Senna) 8.6-50 Mg Tab, 1 TAB PO BID for Prevent Constipation, #30 TAB 0 Refills 09/25/[address] (Bisacodyl EC) 5 Mg Tabec, 5 MG PO HS Y for CONSTIPATION, TAB 0 Refills 09/25/17 Discontinued Reported Medications [place] Carbonate ER ([place] Carbonate ER) 300 Mg Tab, 300 MG PO HS, #2 TAB 0 Refills 09/25/17 Patient's Strengths (min. 2) In a monitored setting. Verbally fluent. Physical Exam Physical exam completed by ED provider. On my examination today, the patient appears to be in no acute physical distress. No motor abnormalities noted. Labs and vitals reviewed: Vital Signs Vital Signs Date Time Temp Pulse Resp B/P (MAP) Pulse Ox O2 Delivery O2 Flow Rate FiO2 11/07/17 02:00 57 16 99/48 (65) 99 Room Air 11/06/17 18:09 98.1 I/O 11/07/17 11/07/17 11/08/17 08:00 16:00 00:00 Intake Total 1000 ml Balance 1000 ml Lab Results Test 11/06/17 18:35 11/07/17 01:30 White Blood Count 7.4 TH/MM3 Red Blood Count 3.68 MIL/MM3 Hemoglobin 11.7 GM/DL Hematocrit 34.2 % Mean Corpuscular Volume 92.9 FL Mean Corpuscular Hemoglobin 31.9 PG Mean Corpuscular Hemoglobin Concent 34.3 % Red Cell Distribution Width 14.4 % Platelet Count 243 TH/MM3 Mean Platelet Volume 9.2 FL Neutrophils (%) (Auto) 65.8 % Lymphocytes (%) (Auto) 23.6 % Monocytes (%) (Auto) 7.1 % Eosinophils (%) (Auto) 2.8 % Basophils (%) (Auto) 0.7 % Neutrophils # (Auto) 4.9 TH/MM3 Lymphocytes # (Auto) 1.8 TH/MM3 Monocytes # (Auto) 0.5 TH/MM3 Eosinophils # (Auto) 0.2 TH/MM3 Basophils # (Auto) 0.0 TH/MM3 CBC Comment DIFF FINAL Differential Comment Blood Urea Nitrogen 21 MG/DL Creatinine 1.06 MG/DL Random Glucose 89 MG/DL Total Protein 6.4 GM/DL Albumin 3.6 GM/DL Calcium Level 8.6 MG/DL Alkaline Phosphatase 37 U/L Aspartate Amino Transf (AST/SGOT) 16 U/L Alanine Aminotransferase (ALT/SGPT) 32 U/L Total Bilirubin 0.1 MG/DL Sodium Level 141 MEQ/L Potassium Level 4.2 MEQ/L Chloride Level 106 MEQ/L Carbon Dioxide Level 27.5 MEQ/L Anion Gap 8 MEQ/L Estimat Glomerular Filtration Rate 53 ML/MIN Ethyl Alcohol Level LESS THAN 3 MG/DL Urine Color LIGHT-YELLOW Urine Turbidity CLEAR Urine pH 6.5 Urine Specific [place] 1.013 Urine Protein NEG mg/dL Urine Glucose (UA) NEG mg/dL Urine Ketones NEG mg/dL Urine Occult Blood NEG Urine Nitrite NEG Urine Bilirubin NEG Urine Urobilinogen LESS THAN 2.0 MG/DL Urine Leukocyte Esterase NEG Urine RBC 1 /hpf Urine WBC 6 /hpf Urine Squamous Epithelial Cells 4 /hpf Urine Renal Epithelial Cells <1 /hpf Urine Amorphous Sediment RARE Urine Hyaline Casts 20 /lpf Urine Mucus FEW /lpf Microscopic Urinalysis Comment CULT NOT INDICATED Urine Opiates Screen NEG Urine Barbiturates Screen NEG Urine Amphetamines Screen NEG Urine Benzodiazepines Screen NEG Urine Cocaine Screen NEG Urine Cannabinoids Screen NEG Mental Status Examination Appearance: Disheveled Consciousness: Alert, Vigilant Orientation: Person, Place (At least) Motor Activity: Normal gait Speech: Unremarkable Language: Adequate Fund of Knowledge: Adequate Attention and Concentration: Easily Distracted Memory: Impaired (Psychosis interferes) Mood: Other (Dysphoric) Affect: Irritable, Other (Restricted) Thought Process & Associations: Linear (Within delusional system) Thought Content: Delusional Hallucination Type: None Delusion Type: Somatic Suicidal Ideation: Yes ("I'd like this suffering to be over") Suicidal Plan: No Suicidal Intention: No (No reported urge to hurt self on an inpatient unit) Homicidal Ideation: No Homicidal Plan: No Homicidal Intention: No Insight: Poor Judgment: Poor Assessment & Plan Problem List: (1) Schizoaffective disorder, chronic condition with acute exacerbation ICD Codes: F25.8 - Other schizoaffective disorders Assessment & Plan 62-year-old female with psychiatric history as detailed above who presents under an ex parte order. On my examination today, the patient maintains the belief, delusional in nature, that she is storing undigested food in her abdomen and arms. She does not appear obstructed and is freely passing flatus during the interview. She is apparently refusing food as a result of this belief and has lost quite a bit of weight per report. Patient requires psychiatric hospitalization at this time for safety, observation and stabilization. Admit inpatient. Involuntary status. I have completed first opinion. Consult for second opinion. Request healthcare surrogate and guardian advocate. I will discontinue the patient's paliperidone and resume the Seroquel that was apparently previously efficacious for her per notes. She has previously been on lithium but this has been discontinued, I suspect because of decreased renal function. She has an allergy to Depakote. I will start the patient on carbamazepine for mood stabilization and plan to check a level after the appropriate interval. I will discontinue the patient's Wellbutrin given the concern for weight loss and will discontinue Trintellix as I am not convinced an antidepressant is presently indicated. If an antidepressant is needed, patient might do well with an agent with appetite stimulating properties such as Remeron. Ativan as needed for anxiety, Cogentin as needed for EPS, Benadryl as needed for sleep. Consult to the dietitian. I&Os. Thrice weekly weights. Vitals every shift. Counselor to see. Disposition planning. Estimated length of stay: 10-14 days. Discharge Planning Pending psychiatric stabilization Request HC Surrog/Guard Advoc?: Yes Ottoniel Weber MD Nov 07, 2017 17:22
[2017-11-07 18:21] VITALS: BP 110/58; PULSE 50; RESP 14; TEMP 97.9
[2017-11-07] MEDS: ALBUTEROL SULFATE 90 MCG/ACT HFA 8 GM INHALER INH SCH (21:00)
[2017-11-07] MEDS: QUEtiapine FUMARATE 100 MG TAB PO SCH (21:00)
[2017-11-07] MEDS: carBAMazepine 200 MG TAB PO SCH (21:16)
[2017-11-07] MEDS: DOCUSATE SODIUM 50 MG/SENNA 8.6 MG TAB PO SCH (21:16)
[2017-11-08 06:17] VITALS: BP 105/58; PULSE 48; RESP 17; TEMP 98.7; O2SAT 96
[2017-11-08 06:32] VITALS: PULSE 78
[2017-11-08] MEDS: ALBUTEROL SULFATE 90 MCG/ACT HFA 8 GM INHALER INH SCH ×2 (09:00→21:00)
[2017-11-08] MEDS: carBAMazepine 200 MG TAB PO SCH ×2 (09:00→21:33)
[2017-11-08] MEDS: DOCUSATE SODIUM 50 MG/SENNA 8.6 MG TAB PO SCH ×2 (09:17→21:33)
[2017-11-08] MEDS: CHOLECALCIFEROL (VIT D3) 1000 UNIT TAB PO SCH (09:18)
[2017-11-08] MEDS: QUEtiapine FUMARATE 100 MG TAB PO SCH ×2 (09:18→21:33)
[2017-11-08] MEDS: MULTIVITAMIN TAB PO SCH (09:18)
[2017-11-08 09:20] LABS: BICARBONATE 27.1 MEQ/L (21.0-32.0); BLOOD UREA NITROGEN 16 MG/DL (7-18); CALCIUM 9.1 MG/DL (8.5-10.1); CHLORIDE 110 MEQ/L (98-107); CREATININE 1.02 MG/DL (0.50-1.00); GLOMERULAR FILTRATION RATE 55 ML/MIN (>89); GLUCOSE,RANDOM 75 MG/DL (74-106); SODIUM (NA) 143 MEQ/L (136-145)
[2017-11-08 09:21] LABS: CHOLESTEROL 170 MG/DL (120-200)
[2017-11-08 09:24] LABS: CHOLESTEROL/ HDL RATIO 2.67 RATIO; HDL CHOLESTEROL 63.6 MG/DL (40.0-60.0); LDL CHOLESTEROL 90 MG/DL (0-99); TRIGLYCERIDES 82 MG/DL (42-150)
[2017-11-08 13:06] LABS: HEMOGLOBIN A1C 4.7 % (4.3-6.0)
--- NOTE | 2017-11-08 14:33 | PD.PSY.CON ---
Provisional Diagnosis Admission Date Nov 07, 2017 at 17:01 [place] I. 1. Schizoaffective disorder, other type, acute exacerbation [place] II. Deferred History of Present Illness Service Psychiatry Consult Requested By Dr. Cuellar Reason for Consult Second opinion Primary Care Physician Stephane Matute M.D. HPI Ms. Rollins is a 62-year-old female with a history of schizoaffective disorder who presents under an ex parte order initiated by case finishing machine adjuster. Ex parte alleges patient has been refusing food and has lost 20% of her body weight. Accompanying the ex parte is a MAR from her [facility] facility, and I note the patient has been receiving Invega, Trintellix and Wellbutrin. [place] was recently discontinued. Reviewing the electronic medical record, I note that the patient was admitted under Dr. Suggs in 2012. Patient seen and examined. Chart reviewed. Case discussed with nursing staff. On my examination today, the patient presents as irritable and somewhat hypervigilant. She insists "I am not digesting my food. All the sudden, my system took a dysfunction." She believes that food is being stored in her abdomen and in her arms. She believes these areas of her body are filled with "hard, undigested food." She does pass flatus during the interview. She is in denial about reported weight loss. When asked about SI/HI, she replies "I'd like this suffering to be over with." No reported urge to hurt herself on the inpatient unit. Affect is dysphoric and irritable. She is psychomotor agitated and paces during the interview. She is somewhat disinhibited and disrobes in order to show me the food she feels is collecting in her abdomen. Remainder of the psychiatric ROS is negative. No other acute physical complaints. Past psychiatric history: The patient has a history of schizoaffective disorder. She follows with the FACT team. She reports that she is adherent with her medications but does not feel they are helping. She was previously admitted to the inpatient unit here as noted above. She reports 1 previous suicide attempt about a decade ago in which she cut herself with a can lid. She has a history of ECT in the past. Family history: The patient reports that her mother had some sort of mental illness. She denies a family history of suicide. Chemical dependency history: The patient denies any abuse of drugs or alcohol. Social history: The patient reports that she has been residing at [facility] for 4 years. She says that she is not happy there. She is single. She has a daughter and 3 grandchildren. She is high school educated. She collects SSI. She denies any history. Denies any access to guns or firearms. She believes in God she says. She does allude to a history of trauma but reports no PTSD symptoms at this time. Spoke with patient's daughter over the phone at number listed in EMR. She is willing to act as healthcare surrogate. She provides consent for medications as detailed below after discussion of the R/B/A. 11/08/17 -second opinion Patient is a 68-year-old woman, with a psychiatric diagnoses of schizoaffective disorder, previous psychiatric admissions, one previous suicide attempt, who was admitted on the expectation by case finishing machine adjuster due to concerns of patient's having self-care deficit, refusing to eat and significant weight loss which patient was admitted to the inpatient psychiatry for further evaluation and management. Patient was found lying hospital bed noted be superficially cooperative, irritable, raising her voice at times. Patient states that she has been feeling "terrible" stating that she has not had a bowel movement in over a month butis able to pass gas. Patient states feeling miserable, denying any perceptual disturbances or paranoid delusions. Patient reports being on medications but unable to recall her regimen. Past Family Social History Coded Allergies: chlorpromazine (Unverified Allergy, Severe, SWOLLEN TONGUE, 11/06/17) codeine (Unverified Allergy, Severe, 11/06/17) divalproex sodium (Unverified Allergy, Severe, SWOLLEN TONGUE, 11/06/17) haloperidol (Unverified Allergy, Severe, 11/06/17) thioridazine (Unverified Allergy, Severe, SWOLLEN TONGUE, 11/06/17) thiothixene (Unverified Allergy, Severe, 11/06/17) Reported Medications Bupropion HCl (Bupropion HCl) 75 Mg Tab, 150 MG PO DAILY for Control Depression , TAB 0 Refills 11/06/17 Vortioxetine (Trintellix) 10 Mg Tab, 10 MG PO DAILY for Control Depression, #30 TAB 0 Refills 11/06/17 Cholecalciferol (Vitamin D-1000) 1,000 Unit Tab, 1000 UNITS PO DAILY for Nutritional Supplement, #1 BOTTLE 0 Refills 09/25/17 Albuterol 18 GM Inh (Ventolin Hfa 18 GM Inh) 90 Mcg/Act Aer, 2 PUFF INH BID, #1 INHALER 0 Refills 09/25/17 Multiple Vitamin (Multi-Vitamin Daily) 1 Tab Tab, 1 TAB PO DAILY for Nutritional Supplement, TAB 0 Refills 09/25/17 Paliperidone ER (Invega) 6 Mg Tab, 6 MG PO DAILY for Schizophrenia, #30 TAB 0 Refills 09/25/17 Ibuprofen (Ibuprofen) 800 Mg Tab, 800 MG PO DAILY, #40 TAB 0 Refills 09/25/17 Sennosides-Docusate Sodium (Docusate Sodium-Senna) 8.6-50 Mg Tab, 1 TAB PO BID for Prevent Constipation, #30 TAB 0 Refills 09/25/[address] (Bisacodyl EC) 5 Mg Tabec, 5 MG PO HS Y for CONSTIPATION, TAB 0 Refills 09/25/17 Discontinued Reported Medications [place] Carbonate ER ([place] Carbonate ER) 300 Mg Tab, 300 MG PO HS, #2 TAB 0 Refills 09/25/17 Current Medications Medications (Trade) Dose Ordered Sig/Elzbieta Route Start Time Stop Time Status Last Admin (Ativan) 1 mg Q6H PRN PO 11/07/17 17:15 (Ativan Inj) 1 mg Q6H PRN IM 11/07/17 17:15 (Benadryl) 50 mg HS PRN PO 11/07/17 17:15 (Tylenol) 650 mg Q4H PRN PO 11/07/17 17:15 (Milk Of Magnesia Liq) 30 ml DAILY PRN PO 11/07/17 17:15 (Mag-Al Plus Susp Liq) 30 ml Q6H PRN PO 11/07/17 17:15 (Habitrol 21 Mg Patch.24 Hr) 1 patch DAILY PRN T-DERMAL 11/07/17 17:15 (Cogentin) 1 mg Q12H PRN PO 11/07/17 17:15 (Cogentin Inj) 1 mg Q12H PRN IM 11/07/17 17:15 (SEROquel) 100 mg Taper BID PO 11/07/17 21:00 11/21/17 20:59 11/08/17 09:18 (TEGretol) 200 mg Q12HR PO 11/07/17 21:00 11/08/17 09:00 (Proair Hfa Inh) 2 puff BID INH 11/07/17 21:00 11/08/17 09:00 (Vitamin D3) 1,000 units DAILY PO 11/08/17 09:00 11/08/17 09:18 (Alexandra-Colace) 1 tab BID PO 11/07/17 21:00 11/08/17 09:17 (Theragran) 1 tab DAILY PO 11/08/17 09:00 11/08/17 09:18 Patient's Strengths (min. 2) In a monitored setting. Verbally fluent. Physical Exam Vital Signs Vital Signs Date Time Temp Pulse Resp B/P (MAP) Pulse Ox O2 Delivery O2 Flow Rate FiO2 11/08/17 06:32 78 11/08/17 06:17 98.7 17 105/58 (74) 96 11/07/17 02:00 Room Air Lab Results Test 11/08/17 07:37 Blood Urea Nitrogen 16 MG/DL Creatinine 1.02 MG/DL Random Glucose 75 MG/DL Calcium Level 9.1 MG/DL Sodium Level 143 MEQ/L Potassium Level 3.9 MEQ/L Chloride Level 110 MEQ/L Carbon Dioxide Level 27.1 MEQ/L Anion Gap 6 MEQ/L Estimat Glomerular Filtration Rate 55 ML/MIN Hemoglobin A1c 4.7 % Triglycerides Level 82 MG/DL Cholesterol Level 170 MG/DL LDL Cholesterol 90 MG/DL HDL Cholesterol 63.6 MG/DL Cholesterol/HDL Ratio 2.67 RATIO Mental Status Examination Appearance: Disheveled Consciousness: Alert, Vigilant Orientation: Person, Place (At least) Motor Activity: Normal gait Speech: Unremarkable Language: Adequate Fund of Knowledge: Adequate Attention and Concentration: Easily Distracted Memory: Impaired (Psychosis interferes) Mood: Other (Dysphoric) Affect: Irritable, Other (Restricted) Thought Process & Associations: Linear (Within delusional system) Thought Content: Delusional Hallucination Type: None Delusion Type: Somatic Suicidal Ideation: Yes ("I'd like this suffering to be over") Suicidal Plan: No Suicidal Intention: No (No reported urge to hurt self on an inpatient unit) Homicidal Ideation: No Homicidal Plan: No Homicidal Intention: No Insight: Poor Judgment: Poor Assessment & Plan Problem List: (1) Schizoaffective disorder, chronic condition with acute exacerbation ICD Codes: F25.8 - Other schizoaffective disorders Assessment & Plan Patient seen and examined, documentation reviewed, and I agree and concur with Dr. Cuellar assessment and plan. Recommendation for second opinion completed. Consult appreciated. Request HC Surrog/Guard Advoc?: Yes Parag Santiago MD Nov 08, 2017 14:33
[2017-11-08 17:51] VITALS: BP 108/50; PULSE 52; RESP 18; TEMP 98.4; O2SAT 100
[2017-11-09 06:12] VITALS: BP 86/49; PULSE 46; RESP 16; TEMP 98; O2SAT 98
[2017-11-09] MEDS: QUEtiapine FUMARATE 100 MG TAB PO SCH ×2 (09:00→21:00)
[2017-11-09] MEDS: carBAMazepine 200 MG TAB PO SCH ×2 (09:00→21:00)
[2017-11-09] MEDS: DOCUSATE SODIUM 50 MG/SENNA 8.6 MG TAB PO SCH ×2 (09:41→21:00)
[2017-11-09] MEDS: ALBUTEROL SULFATE 90 MCG/ACT HFA 8 GM INHALER INH SCH ×2 (09:41→21:00)
[2017-11-09] MEDS: CHOLECALCIFEROL (VIT D3) 1000 UNIT TAB PO SCH (09:42)
[2017-11-09] MEDS: MULTIVITAMIN TAB PO SCH (09:42)
[2017-11-09 14:50] VITALS: BP 95/51; PULSE 50
[2017-11-09 14:52] VITALS: BP_SYST 101; BP_SYST 104; BP_DIAS 58; BP_DIAS 59; PULSE 73; PULSE 82
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
--- NOTE | 2017-11-09 15:58 | EKG ---
Date Performed: 11/08/2017 Time Performed: 18:25:45 PTAGE: 62 years EKG: SINUS BRADYCARDIA BORDERLINE INCREASED QRS VOLTAGE OR LVH NONSPECIFIC ST-T WAVE CHANGE ANTE ROLATERALLY, ISCHEMIA IS ONE POSSIBILITY Compared to previous tracing, QRS voltage is greater anterol aterally and T wave changes are new. Clinical correlation is recommended ABNORMAL ECG PREVIOUS TRACING : 05/22/2015 12.33 DOCTOR: Ha Montoya Interpretating Date/Time 11/09/2017 15:58:15
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
[2017-11-09 18:31] LABS: TROPONIN I LESS THAN 0.02 NG/ML (0.02-0.05)
[2017-11-09 18:33] VITALS: BP 94/50; PULSE 48; RESP 15; TEMP 98.3; O2SAT 100
[2017-11-10 06:06] VITALS: BP 93/48; PULSE 16; RESP 16; TEMP 97.6; O2SAT 97
[2017-11-10] MEDS: carBAMazepine 200 MG TAB PO SCH ×3 (08:23→20:43)
[2017-11-10] MEDS: DOCUSATE SODIUM 50 MG/SENNA 8.6 MG TAB PO SCH ×2 (09:00→20:43)
--- NOTE | 2017-11-10 09:09 | HHI.PYPN ---
Subjective Chief Complaint: Psychosis, self-care deficit Remarks Patient seen and examined with nurse. Chart reviewed. I note that patient ate 100% of lunch and dinner yesterday as well as 100% of breakfast and lunch today. Hospitalist and cardiology input noted and appreciated. I note that Seroquel has been placed on hold and CBZ held due to BP and HR concerns. Case discussed with nursing staff. On my examination today, patient is dysphoric and secluding in her room. She remains delusional about undigested food accumulating in her body but says that she will eat because the staff instruct her to do so. Thought blocking noted. No SI or HI voiced. I did endeavor to discuss treatment plan with the patient, but she is unable to tolerate extended interview and says "I do not want to discuss this any further" and concludes the interview at this time. No other physical complaints. Spoke with patient's health care surrogate/daughter over the phone. We discussed issues with hypotension possibly associated with medications. We discussed changing patient antipsychotic to one with minimal association with cardiac conduction changes and settle on Abilify after discussion of R/B/A. Daughter notes that patient is unhappy at her current [facility], and she and uncle would like patient moved to a different [facility]. They are reportedly willing to supplement patient's income in service of getting her into a better [facility]. I have passed this information along to the counselor and instructed counselor to reach out to patient's daughter to discuss new placement options. Review of Systems ROS Limitations: Uncooperative, Psychotic, Poor Historian Except as stated in HPI: all other systems reviewed are Neg Mental Status Examination Appearance: Disheveled Consciousness: Alert Orientation: Person, Place (At least) Motor Activity: Other (No motor abnormalities noted) Speech: Unremarkable Language: Adequate Fund of Knowledge: Adequate Attention and Concentration: Easily Distracted Memory: Impaired (Psychosis interferes) Mood: Irritable Affect: Irritable Thought Process & Associations: Linear (Within delusional system) Thought Content: Delusional Hallucination Type: None Delusion Type: Somatic Suicidal Ideation: No Suicidal Plan: No Suicidal Intention: No Homicidal Ideation: No Homicidal Plan: No Homicidal Intention: No Insight: Poor Judgment: Poor Results Labs Test 11/09/17 16:46 Total Creatine Kinase 37 U/L Troponin I LESS THAN 0.02 NG/ML Thyroid Stimulating Hormone 3rd Gen 1.160 uIU/ML Labs reviewed. Vitals/IOs Vital Signs Date Time Temp Pulse Resp B/P (MAP) Pulse Ox O2 Delivery O2 Flow Rate FiO2 11/10/17 06:06 97.6 16 16 93/48 (63) 97 11/07/17 02:00 Room Air Intake and Output 11/10/17 11/10/17 11/11/17 08:00 16:00 00:00 Intake Total 240 ml Balance 240 ml Assessment & Plan Problem List: (1) Schizoaffective disorder, chronic condition with acute exacerbation ICD Codes: F25.8 - Other schizoaffective disorders Assessment & Plan Discontinue Seroquel and initiate Abilify 5 mg daily with plans to titrate to effect. Carbamazepine is associated with hypertension and so it is likely unnecessary to hold this agent. I have discussed with nursing staff and we will resume carbamazepine. Continue to monitor on the inpatient unit. Continue other medications and care as ordered. Justification for Cont. Inpt. Impairment in reality construction. Medication changes. Complicating conditions. Risk for decompensation in less restrictive environment. Discharge Planning Possibly new placement. Request HC Surrog/Guard Advoc?: Yes Ottoniel Weber MD Nov 10, 2017 09:09
[2017-11-10] MEDS: MULTIVITAMIN TAB PO SCH (09:20)
[2017-11-10] MEDS: ALBUTEROL SULFATE 90 MCG/ACT HFA 8 GM INHALER INH SCH ×2 (09:20→20:43)
[2017-11-10] MEDS: CHOLECALCIFEROL (VIT D3) 1000 UNIT TAB PO SCH (09:20)
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
--- NOTE | 2017-11-10 13:32 | HHI.PR ---
Subjective Remarks Follow-up for asymptomatic bradycardia and constipation. Patient seen and examined in room ambulating, does not appear in no acute distress. She repots that she has not been able to move her bowels, continues to repot that the food is not being digested. She continues to say that her last BM has been over a month ago. She continues to eat without issues, denies nauseas or vomiting. Denies fevers, chills, cough, SOB, dizziness, lightheadedness, or chest pain. Objective Vitals Vital Signs Date Time Temp Pulse Resp B/P (MAP) Pulse Ox O2 Delivery O2 Flow Rate FiO2 11/10/17 06:06 97.6 16 16 93/48 (63) 97 11/09/17 18:33 98.3 48 15 94/50 (65) 100 11/09/17 14:52 82 101/58 (72) 11/09/17 14:52 73 104/59 (74) 11/09/17 14:50 50 95/51 (66) I/O 11/09/17 11/09/17 11/09/17 11/10/17 11/10/17 11/10/17 07:00 15:00 23:00 07:00 15:00 23:00 Intake Total 240 ml Balance 240 ml Intake Oral 240 ml Result Diagram: 11/06/17 1835 11/08/17 0737 Imaging Last Impressions Abdomen X-Ray 11/10/17 0000 Signed Impressions: Service Date/Time: Friday, November 10, 2017 14:11 - CONCLUSION: No acute disease. Iggy Vann MD Objective Remarks GENERAL: This is a well-developed thin elderly female who appears older than stated age in no apparent distress. SKIN: Cool and dry. HEAD: Atraumatic. Normocephalic. EYES: Pupils equal round and reactive. No scleral icterus. No injection or drainage. ENT: Nose without bleeding, purulent drainage. Airway patent. NECK: Trachea midline. CARDIOVASCULAR: Regular rate and rhythm, S1S2 without murmurs, gallops, or rubs. RESPIRATORY: Clear to auscultation. Breath sounds equal bilaterally. No wheezes , rales, or rhonchi. GASTROINTESTINAL: Abdomen soft, non-tender, nondistended. No palpable masses. No guarding. Normoactive bowel sounds. MUSCULOSKELETAL: Extremities without clubbing, cyanosis, or edema. No joint tenderness, effusion, or edema noted. NEUROLOGICAL: Awake and alert. Cranial nerves II through XII grossly intact. Motor and sensory grossly within normal limits. Normal speech. A/P Assessment and Plan 62-year-old female with past medical history significant for HLD, arthritis, vitamin D deficiency, bipolar disorder, schizophrenia and seizure disorder who was admitted to [facility] psychiatry department on 11/[address]. Review of EMR, patient lives at [facility] with refusal of food and increasing weight loss. [facility] consulted to evaluate patient for bradycardia along with poor p.o. intake. Schizophrenia/bipolar disorder -Treatment per primary team Asymptomatic bradycardia -Patient asymptomatic, not on any beta blockers, is taking Tegretol, levels to be checked -EKG reviewed showing sinus bradycardia, similar to prior EKGs. CBC unremarkable with the exception of hematocrit 34.2. BMP reviewed, electrolytes stable. - TSH is WNL -Orthostatic blood pressures taken and recorded, patient asymptomatic, HR low at rest and increases with activity, no cardiac history -No treatment indicated for the moment - Cardiology consult greatly appreciated, no treatment at this time. Poor PO intake Constipation - KUB checked and negative -Continue Alexandra-Colace, Glycerine suppository if needed Seizure disorder - Continue Tegretol monitor for seizures DVT prophylaxis-ambulation Discussed with nurse. [facility] will sign off, please reconsult if needed. Vincent Fabian Nov 10, 2017 13:32
[2017-11-10] MEDS: ARIPiprazole 5 MG TAB PO SCH (13:45)
[2017-11-10] MEDS ORDERED: GLYCERIN ADULT 2 GM SUPP RECTAL PRN (13:45)
--- NOTE | 2017-11-10 15:18 | RADRPT ---
EXAM DATE/TIME: 11/10/2017 14:11 [place] COMPARISON: No previous studies available for comparison. INDICATIONS : Obstruction MEDICAL HISTORY : Chronic obstructive pulmonary disease. SURGICAL HISTORY : None. ENCOUNTER: Initial ACUITY: 1 month PAIN SCORE: 5/10 LOCATION: Bilateral Abdomen FINDINGS: Supine view of the abdomen was performed. The abdominal bowel gas pattern is normal. No abnormal ma sses, calcifications, or organomegaly is seen. The osseous structures are unremarkable. CONCLUSION: No acute disease. Iggy Vann MD on November 10, 2017 at 15:15 Board Certified Radiologist. This report was verified electronically.
[2017-11-10 18:00] VITALS: BP 120/70; PULSE 94; RESP 18; TEMP 97.6; O2SAT 98
[2017-11-11 05:29] VITALS: BP 104/54; PULSE 53; RESP 16; TEMP 97.7; O2SAT 96
[2017-11-11] MEDS: ALBUTEROL SULFATE 90 MCG/ACT HFA 8 GM INHALER INH SCH ×2 (08:27→21:01)
[2017-11-11] MEDS: DOCUSATE SODIUM 50 MG/SENNA 8.6 MG TAB PO SCH ×2 (08:27→21:00)
[2017-11-11] MEDS: CHOLECALCIFEROL (VIT D3) 1000 UNIT TAB PO SCH (08:27)
[2017-11-11] MEDS: carBAMazepine 200 MG TAB PO SCH ×2 (08:28→21:01)
[2017-11-11] MEDS: ARIPiprazole 5 MG TAB PO SCH (08:28)
[2017-11-11] MEDS: MULTIVITAMIN TAB PO SCH (08:41)
[2017-11-11 08:44] LABS: CREATININE 1.09 MG/DL (0.50-1.00)
[2017-11-11 08:46] LABS: CARBAMAZEPINE (TEGRETOL) 5.3 MCG/ML (4.0-12.0)
--- NOTE | 2017-11-11 13:40 | HHI.PYPN ---
Subjective Chief Complaint: Psychosis, self-care deficit Remarks Patient seen and examined. Chart reviewed. Patient took 100% of breakfast and lunch yesterday, dinner not charted. Case discussed with nursing staff, who has noted some improvement in patient's psychiatric condition versus admission. Case discussed in treatment team. On my exam today, I find the patient secluding in her room. She is largely electively mute. Affect is dysphoric and irritable. When I try to inquire about the status of her delusions, patient says only "I've already spoken about that." No reported side effects from medications. No new physical complaints. I did inform patient regarding plan of care, including recent medication changes. Spoke with PA from cardiology service yesterday afternoon. They are less concerned about medication effect (e.g. antipsychotic) on patient's heart rate/ BP. They anticipate that with improvement in patient's oral intake these parameters should improve. Review of Systems Except as stated in HPI: all other systems reviewed are Neg Mental Status Examination Appearance: Disheveled Consciousness: Alert Orientation: Person, Place (At least) Motor Activity: Other (No abnormal motor movements noted.) Speech: Unremarkable Language: Adequate Fund of Knowledge: Adequate Attention and Concentration: Easily Distracted Memory: Impaired (Psychosis interferes) Mood: Irritable Affect: Irritable, Other (dysphoric) Thought Process & Associations: Linear (Within delusional system) Thought Content: Delusional Hallucination Type: None Delusion Type: Somatic Suicidal Ideation: No Suicidal Plan: No Suicidal Intention: No Homicidal Ideation: No Homicidal Plan: No Homicidal Intention: No Insight: Poor Judgment: Poor Results Labs Test 11/11/17 07:53 Blood Urea Nitrogen 21 MG/DL Creatinine 1.09 MG/DL Random Glucose 79 MG/DL Calcium Level 9.0 MG/DL Sodium Level 140 MEQ/L Potassium Level 4.4 MEQ/L Chloride Level 106 MEQ/L Carbon Dioxide Level 30.0 MEQ/L Anion Gap 4 MEQ/L Estimat Glomerular Filtration Rate 51 ML/MIN Carbamazepine (Tegretol) Level 5.3 MCG/ML Labs reviewed. GFR stable. CBZ level within therapeutic range. Vitals/IOs Vital Signs Date Time Temp Pulse Resp B/P (MAP) Pulse Ox O2 Delivery O2 Flow Rate FiO2 11/11/17 05:29 97.7 53 16 104/54 (71) 96 Intake and Output 11/11/17 11/11/17 11/12/17 08:00 16:00 00:00 Intake Total 360 ml 240 ml Balance 360 ml 240 ml Assessment & Plan Problem List: (1) Schizoaffective disorder, chronic condition with acute exacerbation ICD Codes: F25.8 - Other schizoaffective disorders Assessment & Plan Titrate Abilify to 7.5mg daily to target psychosis. Continue CBZ as ordered. Hospitalist and cardiology input noted and appreciated. Continue other medications and care as ordered. Justification for Cont. Inpt. Medication changes. Impairment in reality construction. Risk for decompensation in less restrictive environment. Discharge Planning Pending psychiatric stabilization. Counselor is working to assist family with arranging for new placement for patient. Request HC Surrog/Guard Advoc?: Yes Ottoniel Weber MD Nov 11, 2017 13:40
[2017-11-11 18:00] VITALS: BP 89/50; PULSE 50; RESP 16; O2SAT 97
[2017-11-11] MEDS: diphenhydrAMINE HCL 50 MG CAP PO PRN (21:01)
[2017-11-12 04:37] VITALS: BP_SYST 104; BP_SYST 95; BP_DIAS 52; BP_DIAS 59; PULSE 42; PULSE 52; PULSE 65; RESP 16; RESP 17; TEMP 97.4; TEMP 97.7; O2SAT 96; O2SAT 97
[2017-11-12 05:13] VITALS: BP 104/52; PULSE 52; RESP 16; TEMP 97.7; O2SAT 96
[2017-11-12] MEDS: ALBUTEROL SULFATE 90 MCG/ACT HFA 8 GM INHALER INH SCH ×2 (08:43→20:58)
[2017-11-12] MEDS: carBAMazepine 200 MG TAB PO SCH ×2 (09:00→20:59)
[2017-11-12] MEDS: ARIPiprazole 5 MG TAB PO SCH (09:00)
[2017-11-12] MEDS: CHOLECALCIFEROL (VIT D3) 1000 UNIT TAB PO SCH (09:00)
[2017-11-12] MEDS: MULTIVITAMIN TAB PO SCH (09:00)
[2017-11-12] MEDS: DOCUSATE SODIUM 50 MG/SENNA 8.6 MG TAB PO SCH ×2 (09:00→20:58)
--- NOTE | 2017-11-12 10:27 | PD.TTN ---
Patient Problems 1. Discharge planning 2. Medication compliance 3. Knowledge deficit 4. Lack of coping skills Progress Toward Goals Provider Present: Dr. Fransisco Weber Provider Input: 11/11/17 - Dr. Weber reported that he has switched patient's Seroquel to Abilify. Patient does not like [facility] and will require new placement. Psychiatric Counselors Present: JEFF Jerry Psych Therapist Input: 11/11/17 - Counselor will contact patient's daughter to determine how much money family is able to contribute to patient's placement. Group Spec/RT/OT/LAW Present: NARAYAN Grimes Group Spec/RT/OT/LAW Input: 11/11/17 - Patient does not participate in groups. Discharge Plan [facility] 11/11/17 - Per Dr. Weber, patient will need to be discharged to an appropriate [facility], as she does not like living at [facility] and has been refusing to eat there. Documentation Scribe: JEFF Jerry Date Resolved: Nov 11, 2017 Rufina Ruelas Nov 12, 2017 10:27
--- NOTE | 2017-11-12 14:51 | HHI.PYPN ---
Subjective Chief Complaint: Psychosis, self-care deficit Remarks Reviewed electronic medical record and discussed case with staff. Follow-up was conducted in patient's room where she was found lying on her bed. Patient awake and alert. Her mood is irritable as is her affect. She still holds to the delusion that she has not had a bowel movement in well over a month. She does report that she has been eating. When asked how this made her feel she responds, "how do you think". Mental Status Examination Appearance: Disheveled Consciousness: Alert Orientation: Person, Place (At least) Motor Activity: Other (No abnormal motor movements noted.) Speech: Unremarkable Language: Adequate Fund of Knowledge: Adequate Attention and Concentration: Easily Distracted Memory: Impaired (Psychosis interferes) Mood: Irritable Affect: Irritable, Other (dysphoric) Thought Process & Associations: Linear (Within delusional system) Thought Content: Delusional Hallucination Type: None Delusion Type: Somatic Suicidal Ideation: No Suicidal Plan: No Suicidal Intention: No Homicidal Ideation: No Homicidal Plan: No Homicidal Intention: No Insight: Poor Judgment: Poor Results Vitals/IOs Vital Signs Date Time Temp Pulse Resp B/P (MAP) Pulse Ox O2 Delivery O2 Flow Rate FiO2 11/12/17 05:13 97.7 52 16 104/52 (69) 96 Intake and Output 11/12/17 11/12/17 11/13/17 08:00 16:00 00:00 Intake Total 120 ml 600 ml Balance 120 ml 600 ml Assessment & Plan Problem List: (1) Schizoaffective disorder, chronic condition with acute exacerbation ICD Codes: F25.8 - Other schizoaffective disorders Assessment & Plan Estimated LOS: Patient remains delusional. She is on the [employer] act docket for tomorrow. Treatment plan will continue as ordered. Days Justification for Cont. Inpt. Moving this patient to a lower level of care would result in decompensation. Request HC Surrog/Guard Advoc?: Yes Donna Sumner Nov 12, 2017 14:50
[2017-11-12 18:23] VITALS: BP 98/55; PULSE 59; RESP 16; TEMP 98; O2SAT 95
[2017-11-12] MEDS: diphenhydrAMINE HCL 50 MG CAP PO PRN (20:59)
[2017-11-13 05:57] VITALS: BP 102/56; PULSE 50; RESP 16; TEMP 97.6; O2SAT 95
[2017-11-13 08:35] VITALS: BP 92/52; PULSE 65
[2017-11-13] MEDS: carBAMazepine 200 MG TAB PO SCH ×2 (09:54→20:48)
[2017-11-13] MEDS: MULTIVITAMIN TAB PO SCH (09:55)
[2017-11-13] MEDS: DOCUSATE SODIUM 50 MG/SENNA 8.6 MG TAB PO SCH ×2 (09:55→20:47)
[2017-11-13] MEDS: CHOLECALCIFEROL (VIT D3) 1000 UNIT TAB PO SCH (09:55)
[2017-11-13] MEDS: ALBUTEROL SULFATE 90 MCG/ACT HFA 8 GM INHALER INH SCH ×2 (09:55→20:47)
[2017-11-13] MEDS: ARIPiprazole 5 MG TAB PO SCH (09:55)
--- NOTE | 2017-11-13 11:41 | HHI.PYPN ---
Subjective Chief Complaint: Psychosis, self-care deficit Remarks Patient seen and examined with nurse. Chart reviewed. I note that patient's blood pressure and pulse rate are no worse and perhaps a little improved with medication adjustment. Case discussed with nursing staff. Nurse notes that patient is eating all of her meals. Case discussed with counselor. On my examination today, I find the patient in the day area having lunch. She hunched over her tray and is irritable and dysphoric. She makes poor eye contact. She denies SI/HI/AVH. Delusions are unchanged and patient does not wish to rehearse them because, she says, we have already discussed them. No side effects from medications. No acute physical complaints. Review of Systems ROS Limitations: Psychotic, Poor Historian Except as stated in HPI: all other systems reviewed are Neg Mental Status Examination Appearance: Disheveled Consciousness: Alert Orientation: Person, Place (at least) Motor Activity: Other (no motor abnormalities noted) Speech: Unremarkable Language: Adequate Fund of Knowledge: Adequate Attention and Concentration: Easily Distracted Memory: Impaired (Psychosis interferes) Mood: Irritable, Other (dysphoric) Affect: Other (restricted) Thought Process & Associations: Linear (Within delusional system) Thought Content: Delusional Hallucination Type: None Delusion Type: Somatic Suicidal Ideation: No Suicidal Plan: No Suicidal Intention: No Homicidal Ideation: No Homicidal Plan: No Homicidal Intention: No Insight: Poor Judgment: Poor Results Labs Labs reviewed. Vitals/IOs Vital Signs Date Time Temp Pulse Resp B/P (MAP) Pulse Ox O2 Delivery O2 Flow Rate FiO2 11/13/17 08:35 65 92/52 (65) 11/13/17 05:57 97.6 16 95 Assessment & Plan Problem List: (1) Schizoaffective disorder, chronic condition with acute exacerbation ICD Codes: F25.8 - Other schizoaffective disorders Assessment & Plan Patient is eating but continues to hold somatic delusions about accumulating food in her body. There has been no evidence of obstruction, but it is difficult to confirm BM according to nursing staff because the patient has a private bathroom. I have asked nursing to try to confirm BM. I will titrate Abilify to 10mg daily to target delusions. Continue to monitor on the inpatient unit. Continue other medications and care as ordered. The patient's case was presented to the [place] act court, and the patient was retained on the unit by the horse show judge with daughter to serve as guardian advocate. Justification for Cont. Inpt. Medication changes. Risk for decompensation in less restrictive environment. Discharge Planning Anticipate return to facility following psychiatric stabilization. Request HC Surrog/Guard Advoc?: Yes Ottoniel Weber MD Nov 13, 2017 11:41
[2017-11-13 17:54] VITALS: BP 88/67; PULSE 75; RESP 16; TEMP 97.2; O2SAT 96
[2017-11-13 17:55] VITALS: BP 98/52; PULSE 70
[2017-11-14 05:29] VITALS: BP 90/52; PULSE 53; RESP 15; TEMP 97.8; O2SAT 95
[2017-11-14] MEDS: carBAMazepine 200 MG TAB PO SCH ×2 (08:53→20:35)
[2017-11-14] MEDS: ALBUTEROL SULFATE 90 MCG/ACT HFA 8 GM INHALER INH SCH ×2 (08:53→20:35)
[2017-11-14] MEDS: CHOLECALCIFEROL (VIT D3) 1000 UNIT TAB PO SCH (08:53)
[2017-11-14] MEDS: MULTIVITAMIN TAB PO SCH (08:54)
[2017-11-14] MEDS: ARIPiprazole 5 MG TAB PO SCH (08:54)
[2017-11-14] MEDS: DOCUSATE SODIUM 50 MG/SENNA 8.6 MG TAB PO SCH ×2 (08:54→20:35)
--- NOTE | 2017-11-14 11:56 | HHI.PYPN ---
Subjective Chief Complaint: Psychosis, self-care deficit Remarks Reviewed electronic medical record and discussed case with staff. Patient was observed when I came onto the unit eating her breakfast. Follow-up conducted in the day room. Patient reports that she feels "terrible". States she does not know how to presented so that staff understand. She states that she does not sleep and just lays there. She continues with her delusions that her food is being absorbed by the tissues in her skin and that she is increasing in mass. Patient did ask for ice cream which was provided by staff. Her mood remains irritable and her affect is blunt. Mental Status Examination Appearance: Disheveled Consciousness: Alert Orientation: Person, Place (at least) Motor Activity: Other (no motor abnormalities noted) Speech: Unremarkable Language: Adequate Fund of Knowledge: Adequate Attention and Concentration: Easily Distracted Memory: Impaired (Psychosis interferes) Mood: Irritable, Other (dysphoric) Affect: Other (restricted) Thought Process & Associations: Linear (Within delusional system) Thought Content: Delusional Hallucination Type: None Delusion Type: Somatic Suicidal Ideation: No Suicidal Plan: No Suicidal Intention: No Homicidal Ideation: No Homicidal Plan: No Homicidal Intention: No Insight: Poor Judgment: Poor Results Vitals/IOs Vital Signs Date Time Temp Pulse Resp B/P (MAP) Pulse Ox O2 Delivery O2 Flow Rate FiO2 11/14/17 05:29 97.8 53 15 90/52 (65) 95 Assessment & Plan Problem List: (1) Schizoaffective disorder, chronic condition with acute exacerbation ICD Codes: F25.8 - Other schizoaffective disorders Assessment & Plan Estimated LOS: Continue with treatment plan as ordered. Days Justification for Cont. Inpt. Moving patient to a lower level of care would likely result in decompensation. Request HC Surrog/Guard Advoc?: Yes Donna Sumner Nov 14, 2017 11:56
[2017-11-14 17:17] VITALS: BP 103/50; PULSE 69; RESP 16; TEMP 97; O2SAT 96
[2017-11-14] MEDS: LORazepam 1 MG TAB PO PRN (20:53)
[2017-11-14] MEDS: diphenhydrAMINE HCL 50 MG CAP PO PRN (20:54)
[2017-11-15 05:45] VITALS: BP 90/49; PULSE 62; RESP 15; TEMP 98.1; O2SAT 93
[2017-11-15] MEDS: DOCUSATE SODIUM 50 MG/SENNA 8.6 MG TAB PO SCH ×2 (09:09→20:31)
[2017-11-15] MEDS: MULTIVITAMIN TAB PO SCH (09:09)
[2017-11-15] MEDS: ALBUTEROL SULFATE 90 MCG/ACT HFA 8 GM INHALER INH SCH ×2 (09:09→20:31)
[2017-11-15] MEDS: CHOLECALCIFEROL (VIT D3) 1000 UNIT TAB PO SCH (09:09)
[2017-11-15] MEDS: carBAMazepine 200 MG TAB PO SCH ×2 (09:09→20:31)
[2017-11-15] MEDS: ARIPiprazole 5 MG TAB PO SCH (09:09)
--- NOTE | 2017-11-15 15:33 | HHI.PYPN ---
Subjective Chief Complaint: Psychosis, self-care deficit Remarks Patient was seen and case discussed with nursing. Patient is irritable and demanding. She says she has a suggestion for mean demands that I state to listen. Her suggestion is "ebay... That is not what I meant to say." She is fixing angry stare. Insight is poor believing she does not have a mental illness. No outbursts Mental Status Examination Appearance: Disheveled Consciousness: Alert Orientation: Person, Place (at least) Motor Activity: Other (no motor abnormalities noted) Speech: Unremarkable Language: Adequate Fund of Knowledge: Adequate Attention and Concentration: Easily Distracted Memory: Impaired (Psychosis interferes) Mood: Irritable, Other (dysphoric) Affect: Other (Angry) Thought Process & Associations: Linear (Within delusional system) Thought Content: Delusional Hallucination Type: None Delusion Type: Somatic Suicidal Ideation: No Suicidal Plan: No Suicidal Intention: No Homicidal Ideation: No Homicidal Plan: No Homicidal Intention: No Insight: Poor Judgment: Poor Results Vitals/IOs Vital Signs Date Time Temp Pulse Resp B/P (MAP) Pulse Ox O2 Delivery O2 Flow Rate FiO2 11/15/17 05:45 98.1 62 15 90/49 (63) 93 Intake and Output 11/15/17 11/15/17 11/16/17 08:00 16:00 00:00 Intake Total 360 ml 240 ml Balance 360 ml 240 ml Assessment & Plan Problem List: (1) Schizoaffective disorder, chronic condition with acute exacerbation ICD Codes: F25.8 - Other schizoaffective disorders Assessment & Plan Continue current treatment plan Justification for Cont. Inpt. Patient would decompensate in a less restrictive setting Request HC Surrog/Guard Advoc?: Yes Gabriele Armas DO Nov 15, 2017 15:33
[2017-11-15 17:36] VITALS: BP 111/55; PULSE 86; RESP 16; TEMP 97.6; O2SAT 98
[2017-11-15] MEDS: diphenhydrAMINE HCL 50 MG CAP PO PRN (20:31)
[2017-11-16 05:47] VITALS: BP 100/55; PULSE 64; RESP 17; TEMP 98.1; O2SAT 98
[2017-11-16] MEDS: ARIPiprazole 5 MG TAB PO SCH (08:42)
[2017-11-16] MEDS: DOCUSATE SODIUM 50 MG/SENNA 8.6 MG TAB PO SCH ×2 (08:42→20:34)
[2017-11-16] MEDS: CHOLECALCIFEROL (VIT D3) 1000 UNIT TAB PO SCH (08:42)
[2017-11-16] MEDS: carBAMazepine 200 MG TAB PO SCH ×2 (08:42→20:34)
[2017-11-16] MEDS: MULTIVITAMIN TAB PO SCH (08:42)
[2017-11-16] MEDS: ALBUTEROL SULFATE 90 MCG/ACT HFA 8 GM INHALER INH SCH ×2 (08:43→20:34)
--- NOTE | 2017-11-16 14:45 | HHI.PYPN ---
Subjective Chief Complaint: Psychosis, self-care deficit Remarks Patient was seen and case discussed with nursing. Patient remains irritable and oppositional. She becomes fixated on minutia in the unit becomes agitated. Today she is upset about the brushes that were given to her. Appetite is improved. Response to internal stimuli Mental Status Examination Appearance: Disheveled Consciousness: Alert Orientation: Person, Place (at least) Motor Activity: Other (no motor abnormalities noted) Speech: Unremarkable Language: Adequate Fund of Knowledge: Adequate Attention and Concentration: Easily Distracted Memory: Impaired (Psychosis interferes) Mood: Angry, Irritable Affect: Irritable Thought Process & Associations: Linear (Within delusional system) Thought Content: Delusional Hallucination Type: None Delusion Type: Somatic Suicidal Ideation: No Suicidal Plan: No Suicidal Intention: No Homicidal Ideation: No Homicidal Plan: No Homicidal Intention: No Insight: Poor Judgment: Poor Results Vitals/IOs Vital Signs Date Time Temp Pulse Resp B/P (MAP) Pulse Ox O2 Delivery O2 Flow Rate FiO2 11/16/17 05:47 98.1 64 17 100/55 (70) 98 Intake and Output 11/16/17 11/16/17 11/17/17 08:00 16:00 00:00 Intake Total 0 ml Balance 0 ml Assessment & Plan Problem List: (1) Schizoaffective disorder, chronic condition with acute exacerbation ICD Codes: F25.8 - Other schizoaffective disorders Assessment & Plan Continue current treatment plan Justification for Cont. Inpt. Patient would decompensate in a less restrictive setting Request HC Surrog/Guard Advoc?: Yes Gabriele Armas DO Nov 16, 2017 14:45
[2017-11-16 17:23] VITALS: BP 105/55; PULSE 75; RESP 16; TEMP 97.7; O2SAT 99
[2017-11-16] MEDS: diphenhydrAMINE HCL 50 MG CAP PO PRN (20:33)
[2017-11-17 06:17] VITALS: BP 80/50; PULSE 63; RESP 12; TEMP 96.5; O2SAT 94
[2017-11-17] MEDS: LORazepam 1 MG TAB PO PRN (09:10)
[2017-11-17] MEDS: CHOLECALCIFEROL (VIT D3) 1000 UNIT TAB PO SCH (09:10)
[2017-11-17] MEDS: carBAMazepine 200 MG TAB PO SCH ×2 (09:10→21:05)
[2017-11-17] MEDS: ALBUTEROL SULFATE 90 MCG/ACT HFA 8 GM INHALER INH SCH ×2 (09:11→21:06)
[2017-11-17] MEDS: ARIPiprazole 5 MG TAB PO SCH (09:11)
[2017-11-17] MEDS: DOCUSATE SODIUM 50 MG/SENNA 8.6 MG TAB PO SCH ×2 (09:11→21:05)
[2017-11-17] MEDS: MULTIVITAMIN TAB PO SCH (09:11)
--- NOTE | 2017-11-17 13:12 | HHI.PYPN ---
Subjective Chief Complaint: Psychosis, self-care deficit Remarks Patient seen and examined. Chart reviewed. Patient's PO intake seems fair and weight is within 1 kg of admission weight. Case discussed with nursing staff who reports patient has been irritable and oppositional and refused a visit from her brother yesterday. On my examination today, the patient remains irritable and dysphoric. Delusional material regarding patient being filled with undigested food is, in patient's words "the same." She is unable to tolerate extended interview and concludes the interview by walking away. No side effects from medications. No new physical complaints. Review of Systems ROS Limitations: Psychotic, Poor Historian Except as stated in HPI: all other systems reviewed are Neg Mental Status Examination Appearance: Disheveled Consciousness: Alert Orientation: Person, Place Motor Activity: Other (No abnormal motor movements noted) Speech: Unremarkable Language: Adequate Fund of Knowledge: Adequate Attention and Concentration: Easily Distracted Memory: Impaired (Psychosis interferes) Mood: Irritable Affect: Irritable, Other (Dysphoric) Thought Process & Associations: Linear (Within delusional system) Thought Content: Delusional Hallucination Type: None Delusion Type: Somatic Suicidal Ideation: No Suicidal Plan: No Suicidal Intention: No Homicidal Ideation: No Homicidal Plan: No Homicidal Intention: No Insight: Poor Judgment: Poor Results Labs Labs reviewed Vitals/IOs Vital Signs Date Time Temp Pulse Resp B/P (MAP) Pulse Ox O2 Delivery O2 Flow Rate FiO2 11/17/17 06:17 96.5 63 12 80/50 (60) 94 Intake and Output 11/17/17 11/17/17 11/18/17 08:00 16:00 00:00 Intake Total 240 ml 120 ml Balance 240 ml 120 ml BP rechecked a 82/55. No complaints of symptomatic hypotension. Assessment & Plan Problem List: (1) Schizoaffective disorder, chronic condition with acute exacerbation ICD Codes: F25.8 - Other schizoaffective disorders Assessment & Plan Titrate Abilify to target psychosis. In light of patient's hypotension, I think it is prudent to titrate by small intervals (to 12.5mg daily starting tomorrow), although Abilify titration does not seem to be having much impact on BP. Check CBZ level tomorrow, and to consider adjusting dose based on level to manage affective component of patient's illness. Continue to monitor on the inpatient psychiatric unit. Continue other medications and care as ordered. Justification for Cont. Inpt. Medication changes. Impairment in reality construction. Risk for decompensation in less restrictive environment. Discharge Planning Pending psychiatric stabilization. Plan is for return to facility with outpatient psychiatric follow-up. Request HC Surrog/Guard Advoc?: Yes Ottoniel Weber MD Nov 17, 2017 13:11
[2017-11-17 17:27] VITALS: BP 105/46; PULSE 97; RESP 15; TEMP 97; O2SAT 96
[2017-11-18 05:49] VITALS: BP 80/44; PULSE 61; TEMP 98.5; O2SAT 98
[2017-11-18] MEDS: carBAMazepine 200 MG TAB PO SCH ×2 (09:00→20:01)
[2017-11-18] MEDS: MULTIVITAMIN TAB PO SCH (09:00)
[2017-11-18] MEDS: ALBUTEROL SULFATE 90 MCG/ACT HFA 8 GM INHALER INH SCH ×2 (09:00→20:00)
[2017-11-18] MEDS: DOCUSATE SODIUM 50 MG/SENNA 8.6 MG TAB PO SCH ×2 (09:00→20:01)
[2017-11-18] MEDS: CHOLECALCIFEROL (VIT D3) 1000 UNIT TAB PO SCH (09:00)
[2017-11-18] MEDS: ARIPiprazole 5 MG TAB PO SCH (09:00)
--- NOTE | 2017-11-18 12:34 | HHI.PYPN ---
Subjective Chief Complaint: Psychosis, self-care deficit Remarks Patient seen and examined. Chart reviewed. Patient consumed 100%/50%/100% of meals yesterday. Case discussed with nursing staff. Case discussed in treatment team. Counselor reports that patient will likely need to return to [facility] as efforts have previously been made to place patient elsewhere but have always fallen apart because of patient resistance to changing facilities. On my exam, patient remains dysphoric. She continues to insist "I have had no bowel function in over a month." She does not appear obstructed, and we did obtain a KUB at admission that was negative. She insists "I am wearing oversized clothes" because of the accumulation of undigested food, but staff who are familiar with patient from previous admissions have noted to me that patient seems quite a bit thinner than she has previously. No reported side effects from medications. No other physical complaints. Review of Systems ROS Limitations: Psychotic, Poor Historian Except as stated in HPI: all other systems reviewed are Neg Mental Status Examination Appearance: Disheveled Consciousness: Alert Orientation: Person, Place Motor Activity: Other (No abnormal motor movements noted) Speech: Unremarkable Language: Adequate Fund of Knowledge: Adequate Attention and Concentration: Easily Distracted Memory: Impaired (Psychosis interferes) Mood: Irritable, Other (dysphoric) Affect: Irritable, Other (Restricted) Thought Process & Associations: Linear (Within delusional system) Thought Content: Delusional Hallucination Type: None Delusion Type: Somatic Suicidal Ideation: No Suicidal Plan: No Suicidal Intention: No Homicidal Ideation: No Homicidal Plan: No Homicidal Intention: No Insight: Poor Judgment: Poor Results Labs Labs reviewed. Patient refused carbamazepine level this morning. Educated patient regarding need for therapeutic blood level monitoring. Vitals/IOs Vital Signs Date Time Temp Pulse Resp B/P (MAP) Pulse Ox O2 Delivery O2 Flow Rate FiO2 11/18/17 05:49 98.5 61 80/44 (56) 98 11/17/17 17:27 15 Assessment & Plan Problem List: (1) Schizoaffective disorder, chronic condition with acute exacerbation ICD Codes: F25.8 - Other schizoaffective disorders Assessment & Plan BPs remain on lower side despite improved PO intake. Before making further med changes, I will request cardiology come and reassess the patient's ongoing hypotension. Continue to monitor on inpatient unit. Continue other medications and care as ordered. Patient remains delusional but is eating, unclear how far off recent chronic baseline patient is. Regional [facility] Manager from facility is supposed to come out today to assess for this per counselor. Justification for Cont. Inpt. Impairment in reality construction. Complicating conditions. Risk for decompensation in less restrictive environment. Discharge Planning Return to facility once psychiatrically stable. Request HC Surrog/Guard Advoc?: Yes Ottoniel Weber MD Nov 18, 2017 12:34
--- NOTE | 2017-11-18 13:10 | PD.TTN ---
Patient Problems 1. Discharge planning 2. Medication compliance 3. Knowledge deficit 4. Lack of coping skills Progress Toward Goals Provider Present: Dr. Fransisco Weber Provider Input: 11/11/17 - Dr. Weber reported that he has switched patient's Seroquel to Abilify. Patient does not like [facility] and will require new placement. 11/17/17 at this point still titrating the Abilify and observing for improvement , not sure what baseline is. She has been eating more, which was major concern Nurse(s) Input: Marilou: patient has been eating 100% over weekend for most meals. She is less social then in previous admissions. Psychiatric Counselors Present: Alicia Patrick LCSW, JEFF Jerry Psych Therapist Input: 11/11/17 - Counselor will contact patient's daughter to determine how much money family is able to contribute to patient's placement. 11/17/17 patient [facility] asked to come assess for baseline, Monica will come out tomorrow to assess her around 1pm Group Spec/RT/OT/LAW Present: Una Sanches, NARAYAN Group Spec/RT/OT/LAW Input: 11/11/17 - Patient does not participate in groups. 11/17/17 patient isolates to her room and does not participate Discharge Plan [facility] 11/11/17 - Per Dr. Weber, patient will need to be discharged to an appropriate [facility], as she does not like living at [facility] and has been refusing to eat there. Documentation Scribe: RAZA JerryKeon Date Resolved: Nov 11, 2017 Alicia Patrick LCSW Nov 18, 2017 13:10
--- NOTE | 2017-11-18 13:41 | PD.TTN ---
Patient Problems 1. Discharge planning 2. Medication compliance 3. Knowledge deficit 4. Lack of coping skills Progress Toward Goals Provider Present: Dr. Fransisco Weber Provider Input: 11/11/17 - Dr. Weber reported that he has switched patient's Seroquel to Abilify. Patient does not like [facility] and will require new placement. 11/17/17 at this point still titrating the Abilify and observing for improvement , not sure what baseline is. She has been eating more, which was major concern Nurse(s) Input: Marilou: patient has been eating 100% over weekend for most meals. She is less social then in previous admissions. Psychiatric Counselors Present: Alicia Patrick LCSW, JEFF Jerry Psych Therapist Input: 11/11/17 - Counselor will contact patient's daughter to determine how much money family is able to contribute to patient's placement. 11/17/[address] [facility] asked to come assess for baseline, Monica will come out tomorrow to assess her around 1pm Group Spec/RT/OT/LAW Present: Una Sanches, NARAYAN Group Spec/RT/OT/LAW Input: 11/11/17 - Patient does not participate in groups. 11/17/17 patient isolates to her room and does not participate Discharge Plan [facility] 11/11/17 - Per Dr. Weber, patient will need to be discharged to an appropriate RETIREMENT, as she does not like living at [facility] and has been refusing to eat there. Documentation Scribe: RAZA JerryKeon Date Resolved: Nov 11, 2017 Alicia Patrick LCSW Nov 18, 2017 13:41
--- NOTE | 2017-11-18 14:21 | PD.CARD.PN ---
Subjective Subjective Remarks Asked to see regarding hypotension. BP as low as 80 systolic. Patient essentially asymptomatic. Oral intake off and on. Objective Medications Current Medications Medications (Trade) Dose Ordered Sig/Elzbieta Route Start Time Stop Time Status Last Admin (Ativan) 1 mg Q6H PRN PO 11/07/17 17:15 11/17/17 09:10 (Ativan Inj) 1 mg Q6H PRN IM 11/07/17 17:15 (Benadryl) 50 mg HS PRN PO 11/07/17 17:15 11/16/17 20:33 (Tylenol) 650 mg Q4H PRN PO 11/07/17 17:15 (Milk Of Magnesia Liq) 30 ml DAILY PRN PO 11/07/17 17:15 Future Hold (Mag-Al Plus Susp Liq) 30 ml Q6H PRN PO 11/07/17 17:15 (Habitrol 21 Mg Patch.24 Hr) 1 patch DAILY PRN T-DERMAL 11/07/17 17:15 (Cogentin) 1 mg Q12H PRN PO 11/07/17 17:15 (Cogentin Inj) 1 mg Q12H PRN IM 11/07/17 17:15 (TEGretol) 200 mg Q12HR PO 11/07/17 21:00 11/18/17 09:00 (Proair Hfa Inh) 2 puff BID INH 11/07/17 21:00 11/18/17 09:00 (Vitamin D3) 1,000 units DAILY PO 11/08/17 09:00 11/18/17 09:00 (Alexandra-Colace) 1 tab BID PO 11/07/17 21:00 11/18/17 09:00 (Theragran) 1 tab DAILY PO 11/08/17 09:00 11/18/17 09:00 (Glycerin Adult Supp) 2 gm BID PRN RECTAL 11/10/17 13:45 (Abilify) 12.5 mg DAILY PO 11/18/17 09:00 11/18/17 09:00 Vital Signs / I&O Vital Signs Date Time Temp Pulse Resp B/P (MAP) Pulse Ox O2 Delivery O2 Flow Rate FiO2 11/18/17 05:49 98.5 61 80/44 (56) 98 11/17/17 17:27 97.0 97 15 105/46 (65) 96 I/O 11/17/17 11/17/17 11/17/17 11/18/17 11/18/17 11/18/17 07:00 15:00 23:00 07:00 15:00 23:00 Intake Total 720 ml 480 ml 120 ml Balance 720 ml 480 ml 120 ml Intake Oral 720 ml 480 ml 120 ml # Voids 5 2 # Bowel Movements 0 Assessment and Plan Assessment and Plan Asymptomatic. Recommend continuing to encourage good oral intake especially fluids. Ottoniel Thompson MD Nov 18, 2017 14:21
[2017-11-18 18:06] VITALS: BP 98/54; PULSE 69; RESP 16; TEMP 98.4; O2SAT 100
[2017-11-18] MEDS: diphenhydrAMINE HCL 50 MG CAP PO PRN (20:04)
[2017-11-18] MEDS: LORazepam 1 MG TAB PO PRN (20:34)
[2017-11-19 05:00] VITALS: BP 94/46; PULSE 66; RESP 16; TEMP 98.7; O2SAT 98
[2017-11-19] MEDS: carBAMazepine 200 MG TAB PO SCH (09:00)
[2017-11-19] MEDS: ARIPiprazole 5 MG TAB PO SCH (09:09)
[2017-11-19] MEDS: CHOLECALCIFEROL (VIT D3) 1000 UNIT TAB PO SCH (09:10)
[2017-11-19] MEDS: DOCUSATE SODIUM 50 MG/SENNA 8.6 MG TAB PO SCH ×2 (09:10→21:23)
[2017-11-19] MEDS: MULTIVITAMIN TAB PO SCH (09:10)
[2017-11-19] MEDS: ALBUTEROL SULFATE 90 MCG/ACT HFA 8 GM INHALER INH SCH ×2 (09:34→21:21)
--- NOTE | 2017-11-19 11:48 | HHI.PYPN ---
Subjective Chief Complaint: Psychosis, self-care deficit Remarks Patient seen and examined. Chart reviewed. Patient's PO intake remains improved. Case discussed with nursing staff. Nurse notes patient is suspicious of medication and once again refused CBZ level. Nurse held CBZ dose this morning since patient refused level. On my exam today, patient presents as oppositional and negativistic. She refuses to leave her room for interview, even though her roommate and a visitor of her roommate are in the room conversing. She remains delusional as before. Affect is dysphoric. She does not report any side effects from medications. No new physical complaints. Patient becomes exasperated with my attempts to interview her and is unable to tolerate extended interview. Review of Systems ROS Limitations: Psychotic, Poor Historian Except as stated in HPI: all other systems reviewed are Neg Mental Status Examination Appearance: Disheveled Consciousness: Alert Orientation: Person, Place Motor Activity: Other (No motor abnormalities noted) Speech: Unremarkable Language: Adequate Fund of Knowledge: Adequate Attention and Concentration: Easily Distracted Memory: Impaired (Psychosis interferes) Mood: Irritable, Other (remains dysphoric) Affect: Irritable, Other (remains restricted) Thought Process & Associations: Linear (within delusions) Thought Content: Delusional Hallucination Type: None Delusion Type: Somatic Suicidal Ideation: No Suicidal Plan: No Suicidal Intention: No Homicidal Ideation: No Homicidal Plan: No Homicidal Intention: No Insight: Poor Judgment: Poor Results Labs Labs reviewed. Refused CBZ level. Vitals/IOs Vital Signs Date Time Temp Pulse Resp B/P (MAP) Pulse Ox O2 Delivery O2 Flow Rate FiO2 11/19/17 05:00 98.7 66 16 94/46 (62) 98 Intake and Output 11/19/17 11/19/17 11/20/17 08:00 16:00 00:00 Intake Total 480 ml Balance 480 ml Assessment & Plan Problem List: (1) Schizoaffective disorder, chronic condition with acute exacerbation ICD Codes: F25.8 - Other schizoaffective disorders Assessment & Plan Agree with holding CBZ for the time being. I have not seen any benefit from this agent on patient's dysphoria, and if she will not comply with blood levels I think the risk outweighs the benefit at this point. Cardiology input noted and appreciated. I will continue to titrate patient's Abilify to 15mg daily to target psychotic symptoms. Rep from [facility] is to see patient today, counselor tells me. Continue to monitor on inpatient unit. Continue other medications and care as ordered. Justification for Cont. Inpt. Med changes. Impairment in reality construction. High risk for decompensation in less restrictive environment. Discharge Planning Return to facility with outpatient follow-up Request HC Surrog/Guard Advoc?: Yes Ottoniel Weber MD Nov 19, 2017 11:48
[2017-11-19 16:58] VITALS: BP 121/60; PULSE 70; RESP 18; TEMP 98.7; O2SAT 98
[2017-11-19] MEDS: diphenhydrAMINE HCL 50 MG CAP PO PRN (21:37)
[2017-11-19] MEDS: LORazepam 1 MG TAB PO PRN (21:37)
[2017-11-20 05:13] VITALS: BP 96/52; PULSE 74; RESP 16; TEMP 98; O2SAT 98
[2017-11-20 05:30] VITALS: BP 96/52; PULSE 74; RESP 16; TEMP 98; O2SAT 98
--- NOTE | 2017-11-20 08:00 | HHI.PYPN ---
Subjective Chief Complaint: Psychosis, self-care deficit Remarks Patient seen and examined. Chart reviewed. Case discussed with nursing staff. Case discussed with counselor who reports that patient called Monica from [facility] on the phone yesterday and was verbalizing a good deal of delusional material, and so Monica reportedly does not believe that the patient is at her baseline. On my examination today, patient says "I prefer not to be bothered." I do perhaps see some mild improvement in her generally dysphoric and negativistic demeanor, but in the main the patient remains unchanged. Delusional material persists. She denies any SI or HI. No side effects from medications. Complains of left arm paresthesia starting last night and is requesting ibuprofen for this. No other new physical complaints. Review of Systems ROS Limitations: Psychotic, Poor Historian Except as stated in HPI: all other systems reviewed are Neg Mental Status Examination Appearance: Disheveled Consciousness: Alert Orientation: Person, Place Motor Activity: Other (No motor abnormalities noted. Patient has full use of her left arm and hand with no obvious sensory deficits) Speech: Unremarkable Language: Adequate Fund of Knowledge: Adequate Attention and Concentration: Easily Distracted Memory: Impaired (Psychosis interferes) Mood: Other (Perhaps a little less irritable and dysphoric today) Affect: Irritable, Other (remains restricted) Thought Process & Associations: Linear (within delusions) Thought Content: Delusional Hallucination Type: None Delusion Type: Somatic Suicidal Ideation: No Suicidal Plan: No Suicidal Intention: No Homicidal Ideation: No Homicidal Plan: No Homicidal Intention: No Insight: Poor Judgment: Poor Results Labs Labs reviewed Vitals/IOs Vital Signs Date Time Temp Pulse Resp B/P (MAP) Pulse Ox O2 Delivery O2 Flow Rate FiO2 11/20/17 05:30 98.0 74 16 96/52 (45) 98 Assessment & Plan Problem List: (1) Schizoaffective disorder, chronic condition with acute exacerbation ICD Codes: F25.8 - Other schizoaffective disorders Assessment & Plan Continue slow titration of Abilify, 17.5mg daily starting tomorrow to target psychosis and for mood stabilization. No signs of deterioration of mood off of CBZ. I will order a one-time dose of ibuprofen and requested the hospitalist see the patient for complaints of left arm paresthesia. Unclear if this represents a joy sharon physical complaint or reflects somatic delusion. Still having difficulty confirming BM. Patient does not appear obstructed. Will lock bathroom to be opened at patient request to try to confirm BM. I will check another KUB as patient again insists she has not moved her bowels since admission, although I do have a high suspicion that this is delusional. Continue to monitor on the inpatient unit. Continue other medications and care as ordered. Justification for Cont. Inpt. Med changes. Impairment in reality construction. Risk for decompensation in less restrictive environment. Discharge Planning Pending psychiatric stabilization Request HC Surrog/Guard Advoc?: Yes Ottoniel Weber MD Nov 20, 2017 08:00
[2017-11-20] MEDS: CHOLECALCIFEROL (VIT D3) 1000 UNIT TAB PO SCH (08:17)
[2017-11-20] MEDS: MULTIVITAMIN TAB PO SCH (08:17)
[2017-11-20] MEDS: DOCUSATE SODIUM 50 MG/SENNA 8.6 MG TAB PO SCH ×2 (08:18→20:35)
[2017-11-20] MEDS: ALBUTEROL SULFATE 90 MCG/ACT HFA 8 GM INHALER INH SCH ×2 (09:00→21:22)
[2017-11-20] MEDS ORDERED: ARIPiprazole 15 MG TAB PO SCH (09:00)
[2017-11-20] MEDS ORDERED: IBUPROFEN 600 MG TAB PO ONE (10:45)
[2017-11-20] MEDS ORDERED: PILL SPLITTER OTHER PRN (11:15)
--- NOTE | 2017-11-20 12:06 | RADRPT ---
EXAM DATE/TIME: 11/20/2017 11:30 [facility] COMPARISON: ABDOMEN KUB ONLY, November 10, 2017, 14:11. INDICATIONS : Evaluate for obstruction MEDICAL HISTORY : Chronic obstructive pulmonary disease. SURGICAL HISTORY : None. ENCOUNTER: Subsequent ACUITY: 1 month PAIN SCORE: 0/10 LOCATION: Abdomen FINDINGS: Portable frontal view of the abdomen demonstrates air within the stomach and bowel in a nonobstructiv e pattern. No organomegaly or concerning calcifications are seen. There is no abnormal mass effect ap preciated. Bones demonstrate no acute abnormality. CONCLUSION: No acute abnormality is identified. There are no findings to indicate bowel obstruction. Preston Cool MD on November 20, 2017 at 12:04 Board Certified Radiologist. This report was verified electronically.
--- NOTE | 2017-11-20 17:45 | HHI.PR ---
Subjective Remarks Re consulted for Left arm pain paresthesia. Patient states her left arm is painful and Motrin helps. She denies any trauma, but states it is due to the labs that are drawn from her. She is able to lift her arm but complaints of brachial pain. She states she does not want any treatment that will prolong her stay. Objective Vitals Vital Signs Date Time Temp Pulse Resp B/P (MAP) Pulse Ox O2 Delivery O2 Flow Rate FiO2 11/20/17 05:30 98.0 74 16 96/52 (67) 98 11/20/17 05:13 98.0 74 16 96/52 (67) 98 I/O 11/19/17 11/19/17 11/19/17 11/20/17 11/20/17 11/20/17 07:00 15:00 23:00 07:00 15:00 23:00 Intake Total 960 ml Balance 960 ml Intake Oral 960 ml # Bowel Movements 2 Imaging Last Impressions Abdomen X-Ray 11/20/17 0000 Signed Impressions: Service Date/Time: November 11:30 - CONCLUSION: No acute abnormality is identified. There are no findings to indicate bowel obstruction. Preston Cool MD Medications and IVs Current Medications Medications (Trade) Dose Ordered Sig/Elzbieta Route Start Time Stop Time Status Last Admin (Ativan) 1 mg Q6H PRN PO 11/07/17 17:15 11/19/17 21:37 (Ativan Inj) 1 mg Q6H PRN IM 11/07/17 17:15 (Benadryl) 50 mg HS PRN PO 11/07/17 17:15 11/19/17 21:37 (Tylenol) 650 mg Q4H PRN PO 11/07/17 17:15 (Milk Of Magnesia Liq) 30 ml DAILY PRN PO 11/07/17 17:15 Future Hold (Mag-Al Plus Susp Liq) 30 ml Q6H PRN PO 11/07/17 17:15 (Habitrol 21 Mg Patch.24 Hr) 1 patch DAILY PRN T-DERMAL 11/07/17 17:15 (Cogentin) 1 mg Q12H PRN PO 11/07/17 17:15 (Cogentin Inj) 1 mg Q12H PRN IM 11/07/17 17:15 (Proair Hfa Inh) 2 puff BID INH 11/07/17 21:00 11/20/17 09:00 (Vitamin D3) 1,000 units DAILY PO 11/08/17 09:00 11/20/17 08:17 (Alexandra-Colace) 1 tab BID PO 11/07/17 21:00 11/20/17 08:18 (Theragran) 1 tab DAILY PO 11/08/17 09:00 11/20/17 08:17 (Glycerin Adult Supp) 2 gm BID PRN RECTAL 11/10/17 13:45 (Abilify) 17.5 mg DAILY PO 11/21/17 09:00 (Pill Splitter) 1 ea UNSCH PRN OTHER 11/20/17 11:15 Urinary Catheter: No Vascular Central Line Catheter: No A/P Problem List: (1) Acute extremity pain ICD Code: M79.609 - Pain in unspecified limb (2) Schizophrenia, schizo-affective type, depressed ICD Code: F25.1 - Schizoaffective disorder, depressive type Status: Acute Assessment and Plan 62 y/o admitted to psychiatry for schizophrenia, [facility] reconsulted for left upper extremity pain. Schizophrenia, chronic -Managed by psychiatry Acute extremity pain -Doppler US ordered to rule out DVT -Warm compress as needed -Ibuprofen prn DVT prophylaxis: ambulation Discharge Planning once cleared by psychiatry Nicki Pineda Nov 20, 2017 17:44
[2017-11-20 17:55] VITALS: BP 93/53; PULSE 78; RESP 17; TEMP 97.3; O2SAT 98
[2017-11-20] MEDS: IBUPROFEN 600 MG TAB PO PRN (20:37)
[2017-11-21 05:20] VITALS: BP 88/51; PULSE 63; RESP 16; TEMP 97.5; O2SAT 97
[2017-11-21] MEDS: CHOLECALCIFEROL (VIT D3) 1000 UNIT TAB PO SCH (08:21)
[2017-11-21] MEDS: DOCUSATE SODIUM 50 MG/SENNA 8.6 MG TAB PO SCH ×2 (08:21→20:34)
[2017-11-21] MEDS: MULTIVITAMIN TAB PO SCH (08:21)
[2017-11-21] MEDS: ALBUTEROL SULFATE 90 MCG/ACT HFA 8 GM INHALER INH SCH ×2 (08:24→20:36)
[2017-11-21] MEDS ORDERED: ARIPiprazole 5 MG TAB PO SCH (09:00)
--- NOTE | 2017-11-21 10:06 | PD.TTN ---
Patient Problems 1. Discharge planning 2. Medication compliance 3. Knowledge deficit 4. Lack of coping skills Progress Toward Goals Provider Present: Dr. Fransisco Weber Provider Input: 11/21/17 Dr Weber repors that she is still being observed on the new medications and possibly adjusted as well as her arm has had some symptoms that need to be cleared medically. She is suggested to remain over the weekend to complete treatment. 11/11/17 - Dr. Weber reported that he has switched patient's Seroquel to Abilify. Patient does not like [facility] and will require new placement. 11/17/17 at this point still titrating the Abilify and observing for improvement , not sure what baseline is. She has been eating more, which was major concern Nurse(s) Input: Marilou: patient has been eating 100% over weekend for most meals. She is less social then in previous admissions. Psychiatric Counselors Present: Alicia Patrick LCSW, [facility]as [facility] Input: 11/21/17 patient has been very hostile and delusional with FA[facility] worker Nilo and this counselor during yesterday's visit, she appears internally stimulated or paranoid coming up with many accusations with pressured speech- this is reported to be closer to baseline - [facility] is informed of her return to be Friday ([facility]) 1823 is placed on chart, her follow up will be with [facility] 11/11/17 - Counselor will contact patient's daughter to determine how much money family is able to contribute to patient's placement. 11/17/17 patient [facility] asked to come assess for baseline, Monica will come out tomorrow to assess her around 1pm Group Spec/RT/OT/LAW Present: Una Sanches, [facility] Group Spec/RT/OT/LAW Input: 11/21/17 patient declines to participate although she is encouraged to 11/11/17 - Patient does not participate in groups. 11/17/17 patient isolates to her room and does not participate Discharge Plan [facility] 11/11/17 - Per Dr. Weber, patient will need to be discharged to an appropriate [facility], as she does not like living at [facility] and has been refusing to eat there. Documentation Scribe: Rufina Ruelas [facility] Date Resolved: Nov 11, 2017 Alicia Patrick LCSW Nov 21, 2017 10:06
--- NOTE | 2017-11-21 11:29 | HHI.PYPN ---
Subjective Chief Complaint: Psychosis, self-care deficit Remarks Patient seen and examined with nurse. Chart reviewed. Case discussed with nursing staff. Nurse was able to record 2 BM yesterday. Case discussed in treatment team. Therapists familiar with patient from previous admissions note that even at baseline she is obstreperous and irritable. On my exam, patient actually seems a little less irritable today. She expresses desire to return to facility, and counselor reports to me that facility will accept her back Friday. She remains delusional about accumulation of undigested food, but she seems less distressed by this today. She is spending more time in the milieu. Denies SI or HI. Denies AVH. Denies side effects from medications. No new physical complaints. No complaints of symptomatic hypotension. Review of Systems ROS Limitations: Psychotic, Poor Historian Except as stated in HPI: all other systems reviewed are Neg Mental Status Examination Appearance: Disheveled Consciousness: Alert Orientation: Person, Place Motor Activity: Other (No abnormal motor movements noted) Speech: Unremarkable Language: Adequate Fund of Knowledge: Adequate Attention and Concentration: Easily Distracted Memory: Impaired (Psychosis interferes) Mood: Other (Again less irritable and dysphoric) Affect: Blunt Thought Process & Associations: Linear (within delusions) Thought Content: Delusional Hallucination Type: None Delusion Type: Somatic (Less prominent) Suicidal Ideation: No Suicidal Plan: No Suicidal Intention: No Homicidal Ideation: No Homicidal Plan: No Homicidal Intention: No Insight: Poor Judgment: Poor Results Labs Labs reviewed Last Impressions Abdomen X-Ray 11/20/17 0000 Signed Impressions: Service Date/Time: November 11:30 - CONCLUSION: No acute abnormality is identified. There are no findings to indicate bowel obstruction. Preston Cool MD Awaiting left arm Doppler. Vitals/IOs Vital Signs Date Time Temp Pulse Resp B/P (MAP) Pulse Ox O2 Delivery O2 Flow Rate FiO2 11/21/17 05:20 97.5 63 16 88/51 (63) 97 Assessment & Plan Problem List: (1) Schizoaffective disorder, chronic condition with acute exacerbation ICD Codes: F25.8 - Other schizoaffective disorders Assessment & Plan Titrate Abilify to 20 mg daily to target psychosis. Hospitalist input noted and appreciated. Continue other medications and care as ordered. Justification for Cont. Inpt. Medication changes. Impairment in reality construction. Discharge Planning Possible discharge Friday. Request HC Surrog/Guard Advoc?: Yes Ottoniel Weber MD Nov 21, 2017 11:29
--- NOTE | 2017-11-21 17:32 | RADRPT ---
EXAM DATE/TIME: 11/20/2017 21:45 [facility] COMPARISON: No previous studies available for comparison. INDICATIONS : Left arm pain. MEDICAL HISTORY : Seizures. Schizoaffective Disorder. BiPolar Disorder. SURGICAL HISTORY : Tonsillectomy. ENCOUNTER: Initial ACUITY: 1 day PAIN SCORE: 5/10 LOCATION: Left arm. FINDINGS: There is spontaneous flow documented in the brachial, basilic, cephalic, axillary, and subclavian vei ns. The vessels are compressible and augmentation response is documented. No filling defects are se en. The flow is phasic with respiration. Direction of flow in the jugular vein is caudal. CONCLUSION: Limited by patient. Negative for venous thrombosis. Sami Rodríguez MD FA[facility] on November 21, 2017 at 17:30 Board Certified Radiologist. This report was verified electronically.
[2017-11-21 17:54] VITALS: BP 101/59; PULSE 61; RESP 17; TEMP 97.2; O2SAT 100
[2017-11-21] MEDS: IBUPROFEN 600 MG TAB PO PRN (20:36)
[2017-11-21] MEDS: LORazepam 1 MG TAB PO PRN (21:50)
[2017-11-22 05:48] VITALS: BP 89/60; PULSE 57; RESP 18; TEMP 97.6; O2SAT 96
[2017-11-22] MEDS: ALBUTEROL SULFATE 90 MCG/ACT HFA 8 GM INHALER INH SCH ×2 (08:57→20:42)
[2017-11-22] MEDS: DOCUSATE SODIUM 50 MG/SENNA 8.6 MG TAB PO SCH ×2 (08:58→20:42)
[2017-11-22] MEDS: CHOLECALCIFEROL (VIT D3) 1000 UNIT TAB PO SCH (08:58)
[2017-11-22] MEDS: MULTIVITAMIN TAB PO SCH (08:58)
--- NOTE | 2017-11-22 13:23 | HHI.PYPN ---
Subjective Chief Complaint: Psychosis, self-care deficit Remarks Patient was seen and case discussed with nursing. Patient remains irritable with various complaints. She continues with somatic delusions believing she has not had a bowel movement when she had one yesterday. Denies auditory or visual hallucinations. Perseverant on discharge Mental Status Examination Appearance: Disheveled Consciousness: Alert Orientation: Person, Place Motor Activity: Other (No abnormal motor movements noted) Speech: Unremarkable Language: Adequate Fund of Knowledge: Adequate Attention and Concentration: Easily Distracted Memory: Impaired (Psychosis interferes) Mood: Other (Again less irritable and dysphoric) Affect: Irritable Thought Process & Associations: Linear (within delusions) Thought Content: Delusional Hallucination Type: None Delusion Type: Somatic (Less prominent) Suicidal Ideation: No Suicidal Plan: No Suicidal Intention: No Homicidal Ideation: No Homicidal Plan: No Homicidal Intention: No Insight: Poor Judgment: Poor Results Vitals/IOs Vital Signs Date Time Temp Pulse Resp B/P (MAP) Pulse Ox O2 Delivery O2 Flow Rate FiO2 11/22/17 05:48 97.6 57 18 89/60 (70) 96 Intake and Output 11/22/17 11/22/17 11/23/17 08:00 16:00 00:00 Intake Total 480 ml Balance 480 ml Assessment & Plan Problem List: (1) Schizoaffective disorder, chronic condition with acute exacerbation ICD Codes: F25.8 - Other schizoaffective disorders Assessment & Plan Continue current treatment plan Justification for Cont. Inpt. Patient would decompensate in a less restrictive setting Request HC Surrog/Guard Advoc?: Yes Gabriele Armas DO Nov 22, 2017 13:23
--- NOTE | 2017-11-22 13:36 | HHI.PR ---
Subjective Remarks Follow-up visit for left arm pain and paresthesia. Patient seen and examined in bed today, continues to report of some arm pain but states that pain medication does alleviate this. She reports that there is nothing visible on her skin or arm but there is pain there. Patient is also concerned because she is exhibiting a condition and where she is unable to process food per patient. Patient has been seen previously by myself in this continues to be an issue the patient reports. She states that she has not had a bowel movement in over a month. She denies any nausea, vomiting, eating and drinking without any issues , no abdominal pain or discomfort. She denies any fevers, chills, headaches, shortness of breath, cough, or chest pain. She is requesting milk of magnesia for her to have a bowel movement. Objective Vitals Vital Signs Date Time Temp Pulse Resp B/P (MAP) Pulse Ox O2 Delivery O2 Flow Rate FiO2 11/22/17 05:48 97.6 57 18 89/60 (70) 96 11/21/17 21:36 15 11/21/17 17:54 97.2 61 17 101/59 (73) 100 I/O 11/21/17 11/21/17 11/21/17 11/22/17 11/22/17 11/22/17 07:00 15:00 23:00 07:00 15:00 23:00 Intake Total 0 ml 480 ml Balance 0 ml 480 ml Intake Oral 0 ml 480 ml # Voids 1 # Bowel Movements 1 Objective Remarks GENERAL: This is a well-developed thin elderly female who appears older than stated age in no apparent distress. SKIN: Cool and dry. Bilateral arms with no visible edema, open wounds or lesions. HEAD: Atraumatic. Normocephalic. EYES: Pupils equal round and reactive. No scleral icterus. No injection or drainage. ENT: Nose without bleeding, purulent drainage. Airway patent. NECK: Trachea midline. CARDIOVASCULAR: Regular rate and rhythm, S1S2 without murmurs, gallops, or rubs. RESPIRATORY: Clear to auscultation. Breath sounds equal bilaterally. No wheezes , rales, or rhonchi. GASTROINTESTINAL: Abdomen soft, non-tender, nondistended. No palpable masses. No guarding. Normoactive bowel sounds. MUSCULOSKELETAL: Extremities without clubbing, cyanosis, or edema. No joint tenderness, effusion, or edema noted. Moving bilateral upper extremities without any limitations. NEUROLOGICAL: Awake and alert. Motor and sensory grossly within normal limits. Normal speech. A/P Problem List: (1) Acute extremity pain ICD Code: M79.609 - Pain in unspecified limb (2) Schizophrenia, schizo-affective type, depressed ICD Code: F25.1 - Schizoaffective disorder, depressive type Status: Acute Assessment and Plan 62-year-old female with past medical history significant for HLD, arthritis, vitamin D deficiency, bipolar disorder, schizophrenia and seizure disorder who was admitted to [facility] psychiatry department on 11/[address]. Review of EMR, patient lives at [facility] with refusal of food and increasing weight loss. [facility] consulted to evaluate patient for bradycardia along with poor p.o. intake. Schizophrenia/bipolar disorder -Treatment per primary team Constipation - KUB checked and negative on 11/20 -Recorded BM on 11/21 -Continue Alexandra-Colace, Glycerine suppository if needed -Patient's reports of no bowel movement in over a month likely related to her schizophrenia disorder. Seizure disorder - Continue Tegretol monitor for seizures Acute extremity pain -Doppler US was limited but negative for venous thrombus. -Warm compress as needed -Ibuprofen prn DVT prophylaxis-ambulation Discussed with nurse. [facility] will sign off, please reconsult if needed. Vincent Fabian Nov 22, 2017 13:36
[2017-11-22] MEDS: LORazepam 1 MG TAB PO PRN ×2 (16:00→22:00)
[2017-11-22 18:08] VITALS: BP 101/50; PULSE 68; RESP 16; TEMP 97.2; O2SAT 98
[2017-11-22] MEDS: diphenhydrAMINE HCL 50 MG CAP PO PRN (20:45)
[2017-11-22] MEDS: IBUPROFEN 600 MG TAB PO PRN (20:45)
[2017-11-23 06:10] VITALS: BP 98/55; PULSE 68; RESP 16; TEMP 97.6; O2SAT 97
[2017-11-23 08:57] VITALS: BP 93/53; PULSE 76
[2017-11-23] MEDS: ALBUTEROL SULFATE 90 MCG/ACT HFA 8 GM INHALER INH SCH ×2 (09:18→20:06)
[2017-11-23] MEDS: DOCUSATE SODIUM 50 MG/SENNA 8.6 MG TAB PO SCH ×2 (09:18→20:06)
[2017-11-23] MEDS: MULTIVITAMIN TAB PO SCH (09:18)
[2017-11-23] MEDS: CHOLECALCIFEROL (VIT D3) 1000 UNIT TAB PO SCH (09:19)
--- NOTE | 2017-11-23 11:07 | HHI.PYPN ---
Subjective Chief Complaint: Psychosis, self-care deficit Remarks Patient was seen and case discussed with nursing. Overnight patient was verbally aggressive per nursing. Per nursing she remains perseverant on her bowel movements and p.o. intake. From my interview she is more talkative and more pleasant. She did not have any demands, did not raise her voice and was able to stay on topic. She is perseverative on discharge Mental Status Examination Appearance: Disheveled Consciousness: Alert Orientation: Person, Place Motor Activity: Other (No abnormal motor movements noted) Speech: Unremarkable Language: Adequate Fund of Knowledge: Adequate Attention and Concentration: Easily Distracted Memory: Impaired (Psychosis interferes) Mood: Other (Again less irritable and dysphoric) Affect: Appropriate Thought Process & Associations: Linear (within delusions) Thought Content: Delusional Hallucination Type: None Delusion Type: Somatic (Less prominent) Suicidal Ideation: No Suicidal Plan: No Suicidal Intention: No Homicidal Ideation: No Homicidal Plan: No Homicidal Intention: No Insight: Poor Judgment: Poor Results Vitals/IOs Vital Signs Date Time Temp Pulse Resp B/P (MAP) Pulse Ox O2 Delivery O2 Flow Rate FiO2 11/23/17 08:57 76 93/53 (66) 11/23/17 06:10 97.6 16 97 Assessment & Plan Problem List: (1) Schizoaffective disorder, chronic condition with acute exacerbation ICD Codes: F25.8 - Other schizoaffective disorders Assessment & Plan Continue current treatment plan Justification for Cont. Inpt. Patient would decompensate in a less restrictive setting Request HC Surrog/Guard Advoc?: Yes Gabriele Armas DO Nov 23, 2017 11:07
[2017-11-23 18:05] VITALS: BP 90/43; PULSE 73; RESP 16; TEMP 98; O2SAT 98
[2017-11-23] MEDS: diphenhydrAMINE HCL 50 MG CAP PO PRN (20:07)
[2017-11-23] MEDS: LORazepam 1 MG TAB PO PRN (20:07)
[2017-11-23] MEDS: IBUPROFEN 600 MG TAB PO PRN (20:08)
[2017-11-24 05:57] VITALS: BP_SYST 79; BP_SYST 99; BP_DIAS 42; PULSE 58; RESP 17; TEMP 97.3; O2SAT 98
[2017-11-24] MEDS: ALBUTEROL SULFATE 90 MCG/ACT HFA 8 GM INHALER INH SCH (09:19)
[2017-11-24] MEDS: DOCUSATE SODIUM 50 MG/SENNA 8.6 MG TAB PO SCH (09:19)
[2017-11-24] MEDS: CHOLECALCIFEROL (VIT D3) 1000 UNIT TAB PO SCH (09:19)
[2017-11-24] MEDS: MULTIVITAMIN TAB PO SCH (09:19)
[2017-11-24] MEDS: IBUPROFEN 600 MG TAB PO PRN (10:49)
[2017-11-24] MEDS ORDERED: PERI PO (12:59)
[2017-11-24] MEDS ORDERED: Albuterol Hfa Inh INH (12:59)
[2017-11-24] MEDS ORDERED: ARIP1TAB14 PO (12:59)
--- NOTE | 2017-11-24 13:00 | HHI.DS ---
Psychiatry Discharge Summary Inpatient Psychiatric care?: Yes Advance Directive: No Reason Not Provided: REFUSES TO ANSWER , BUT [facility] AdvanceDirective: No Health Care Proxy: No Admission Admission Date Nov 07, 2017 at 17:01 Admission Diagnosis: (1) Schizoaffective disorder, chronic condition with acute exacerbation ICD Code: F25.8 - Other schizoaffective disorders Brief History Ms. Rollins is a 62-year-old female with a history of schizoaffective disorder who presents under an ex parte order initiated by continuous pillowcase cutter. Ex parte alleges patient has been refusing food and has lost 20% of her body weight. Accompanying the ex parte is a MAR from her [facility] facility, and I note the patient has been receiving Invega, Trintellix and Wellbutrin. [place] was recently discontinued. Reviewing the electronic medical record, I note that the patient was admitted under Dr. Suggs in 2012. Patient seen and examined. Chart reviewed. Case discussed with nursing staff. On my examination today, the patient presents as irritable and somewhat hypervigilant. She insists "I am not digesting my food. All the sudden, my system took a dysfunction." She believes that food is being stored in her abdomen and in her arms. She believes these areas of her body are filled with "hard, undigested food." She does pass flatus during the interview. She is in denial about reported weight loss. When asked about SI/HI, she replies "I'd like this suffering to be over with." No reported urge to hurt herself on the inpatient unit. Affect is dysphoric and irritable. She is psychomotor agitated and paces during the interview. She is somewhat disinhibited and disrobes in order to show me the food she feels is collecting in her abdomen. Remainder of the psychiatric ROS is negative. No other acute physical complaints. Past psychiatric history: The patient has a history of schizoaffective disorder. She follows with the FACT team. She reports that she is adherent with her medications but does not feel they are helping. She was previously admitted to the inpatient unit here as noted above. She reports 1 previous suicide attempt about a decade ago in which she cut herself with a can lid. She has a history of ECT in the past. Family history: The patient reports that her mother had some sort of mental illness. She denies a family history of suicide. Chemical dependency history: The patient denies any abuse of drugs or alcohol. Social history: The patient reports that she has been residing at [facility] for 4 years. She says that she is not happy there. She is single. She has a daughter and 3 grandchildren. She is high school educated. She collects SSI. She denies any history. Denies any access to guns or firearms. She believes in God she says. She does allude to a history of trauma but reports no PTSD symptoms at this time. Spoke with patient's daughter over the phone at number listed in EMR. She is willing to act as healthcare surrogate. She provides consent for medications as detailed below after discussion of the R/B/A. Tobacco Use In Past 30 Days: 5 or More Cigarettes/Day Alcohol Use: Never Hospital Course Patient was admitted to a locked, inpatient psychiatric unit. A general medical consultation was obtained. A cardiology consultation was obtained. Appropriate precautions were in place throughout patient's hospital stay. Patient was seen and examined on the unit by psychiatry and also visited by counselor. Psychotropic medications were adjusted. Patient had improvement in presenting psychiatric symptomatology during the course of her hospital stay. There was no evidence of any suicidality or homicidality on the inpatient unit. The patient's behavior improved with the benefit of pharmacologic treatment on the inpatient unit. Self-care improved with treatment. On the day of discharge: Patient seen and examined with nurse. Chart reviewed. Case discussed with nursing staff. No behavioral issues noted overnight. Case discussed with counselor. Patient may return to assisted living facility today per counselor. On my examination today, the patient reports "I feel better." She denies any suicidal or homicidal ideation, intent or plan on direct questioning and contracts for safety. Affect is considerably brighter versus earlier in the hospital stay, and I can elicit no depressive or hypomanic/manic symptoms. No audiovisual hallucinations. She does not verbalize any delusional material today, and her somatic preoccupation in general is much reduced versus admission. She denies side effects from medications. No acute physical complaints. Suicide and violence risk assessment on day of discharge both suggest lower imminent risk, and the patient's level of function is adequate for planned level of outpatient care. Patient has maximized benefit from this inpatient psychiatric hospital stay and will be discharged back to facility today with psychiatric follow-up as arranged by counselor. Patient is also to follow up with primary care. I have counseled the patient regarding warning signs for need to return to the psychiatric emergency room as part of a general safety plan. Results Blood Pressure 99 / 42 Vital Signs Date Time Temp Pulse Resp B/P (MAP) Pulse Ox O2 Delivery O2 Flow Rate FiO2 11/24/17 05:57 97.3 58 17 99/42 (61) 98 Laboratory Results Test 11/08/17 07:37 Cholesterol Level 170 MG/DL (120-200) HDL Cholesterol 63.6 MG/DL (40.0-60.0) Hemoglobin A1c 4.7 % (4.3-6.0) LDL Cholesterol 90 MG/DL (0-99) Triglycerides Level 82 MG/DL (42-150) Summary of Procedures None done Imaging Last Impressions Upper Extremity Ultrasound 11/21/17 0000 Signed Impressions: Service Date/Time: November 21:45 - CONCLUSION: Limited by patient. Negative for venous thrombosis. Sami Rodríguez MD FACR Abdomen X-Ray 11/20/17 0000 Signed Impressions: Service Date/Time: November 11:30 - CONCLUSION: No acute abnormality is identified. There are no findings to indicate bowel obstruction. Preston Cool MD Pending results at discharge: No Medications # of Antipsychotic meds at D/C: 1 Approp Antipsych med options 1 - Minimum of three failed multiple trials of monotherapy. 2 - Documented plan to taper to monotherapy due to previous use of multiple meds OR cross-taper in progress at D/C. 3 - Documentation of augmentation of Clozapine. 4 - Justification other than those listed in allowable values 1-3, document here : Discharge Discharge Date: Nov 24, 2017 Discharge Diagnosis: (1) Schizoaffective disorder, chronic condition with acute exacerbation Diagnosis: Principal (stabilized) ICD Code: F25.8 - Other schizoaffective disorders Pt Condition on Discharge: Stable Discharge Disposition: ACLF/CUSTODIAL Discharge Instructions Diet Instructions: As Tolerated, No Restrictions Activities you can perform: Weight Bearing as Francie Scheduled Appointment: FACT team Appointment Date: Nov 28, 2017 Appointment Time: 1pm New Orders: BASIC METABOLIC PROF - 1 Week New Medications: Aripiprazole (Aripiprazole) 20 Mg Tab 20 MG PO DAILY for Mental Health for 30 Days, #30 TAB 0 Refills Sennosides-Docusate Sodium (Gnp Senna Plus 8.6-50 mg) 8.6 Mg-50 Mg Tab 1 TAB PO BID for Health for 30 Days, #60 TAB 0 Refills [Albuterol Hfa Inh] () 60 PUFF/8 GM AERO 2 PUFF INH BID for Health for 30 Days, 0 Refills Continued Medications: Bisacodyl DR (Bisacodyl EC) 5 Mg Tabec 5 MG PO HS PRN for CONSTIPATION, TAB 0 Refills Cholecalciferol (Vitamin D-1000) 1,000 Unit Tab 1000 UNITS PO DAILY for Nutritional Supplement, #1 BOTTLE 0 Refills Multiple Vitamin (Multi-Vitamin Daily) 1 Tab Tab 1 TAB PO DAILY for Nutritional Supplement, TAB 0 Refills Discontinued Medications: Albuterol 18 GM Inh (Ventolin Hfa 18 GM Inh) 90 Mcg/Act Aer 2 PUFF INH BID, #1 INHALER 0 Refills Bupropion HCl (Bupropion HCl) 75 Mg Tab 150 MG PO DAILY for Control Depression, TAB 0 Refills Ibuprofen (Ibuprofen) 800 Mg Tab 800 MG PO DAILY, #40 TAB 0 Refills Paliperidone ER (Invega) 6 Mg Tab 6 MG PO DAILY for Schizophrenia, #30 TAB 0 Refills Sennosides-Docusate Sodium (Docusate Sodium-Senna) 8.6-50 Mg Tab 1 TAB PO BID for Prevent Constipation, #30 TAB 0 Refills Vortioxetine (Trintellix) 10 Mg Tab 10 MG PO DAILY for Control Depression, #30 TAB 0 Refills Discharge Time <= 30 minutes Mental Status Examination Appearance: Appropriate Consciousness: Alert Orientation: Person, Place, Date/Time (approx) Motor Activity: Other (No hand tremor, no dystonia, no dyskinesia, no other motor abnormalities noted.) Speech: Unremarkable Language: Adequate Fund of Knowledge: Adequate Attention and Concentration: Easily Distracted Memory: Unremarkable Mood: Appropriate Affect: Appropriate, Euthymic Thought Process & Associations: Intact Thought Content: Appropriate Hallucination Type: None Delusion Type: None Suicidal Ideation: No Suicidal Plan: No Suicidal Intention: No Homicidal Ideation: No Homicidal Plan: No Homicidal Intention: No Insight: Poor (Chronic condition) Judgment: Poor (Chronic condition) Discharge/Advance Care Plan Health Problems: (1) Schizoaffective disorder, chronic condition with acute exacerbation Goals to promote your health * To prevent worsening of your condition and complications * To maintain your health at the optimal level Directions to meet your goals Take your medications as prescribed Follow your dietary instruction Follow activity as directed Keep your appointments as scheduled Take your immunizations and boosters as scheduled If your symptoms worsen call your PCP, if no PCP go to Urgent Care Center or Emergency Room For 24/02 questions related to your inpatient stay or results of tests pending at discharge, please contact Dr. Ottoniel Weber at Smoking is Dangerous to Your Health. Avoid second hand smoking Ottoniel Weber MD Nov 24, 2017 13:00
== END 2017-11-24 15:30 | disposition home or self-care (01) | DRG 885 ==
LOC: NEPE 17:44 → NEDA 11-07 17:01 → H260 11-07 17:38 → H250 11-10 12:20 → H260 11-19 14:28
PROVIDERS: ADMIT Psychiatry & Neurology Psychiatry; ATTEND Psychiatry & Neurology Psychiatry
DX: F31.5 Bipolar disorder, current episode depressed, severe, with psychotic features (principal); G40.909 Epilepsy, unspecified, not intractable, without status epilepticus; R00.1 Bradycardia, unspecified; E55.9 Vitamin D deficiency, unspecified; M19.90 Unspecified osteoarthritis, unspecified site; E78.5 Hyperlipidemia, unspecified; F50.82 Avoidant/restrictive food intake disorder; K59.00 Constipation, unspecified; M79.622 Pain in left upper arm; Z88.5 Allergy status to narcotic agent; Z88.8 Allergy status to other drugs, medicaments and biological substances; Z79.51 Long term (current) use of inhaled steroids; Z79.899 Other long term (current) drug therapy; Z91.5 Personal history of self-harm; Z72.0 Tobacco use
CPT/HCPCS: 74018; 80048; 80053; 80061; 80156; 80307; 81001; 82550; 83036; 84443; 84484; 85025; 93005; 93971; 99285; J7030; Q0163

== ENCOUNTER 2017-12-24 22:58 | Emergency (ER) | payer MEDICARE, OTHER ==
[~2017-12-24] VITALS: Ht 154.9 cm; Wt 50.0 kg
[~2017-12-24 22:58] MED LIST changes: +ARIP1TAB14 PO; +Albuterol Hfa Inh INH; -DOCU8.6T PO; -IBUP1TAB7 PO; -INVE6TAB3 PO; -LITH300T PO; +PERI PO; -VENTAER INH
[2017-12-24 23:15] VITALS: BP 100/56; PULSE 84; RESP 18; TEMP 98.1; O2SAT 100
--- NOTE | 2017-12-25 00:03 | PD ---
HPI Chief Complaint: Flank/Kidney Pain Time Seen by Provider: 23:08 Travel History International Travel<30 days: No Contact w/Intl Traveler<30days: No Traveled to known affect area: No History of Present Illness HPI Patient is a 62-year-old female from [facility] she is complaining of "no urine for 4 weeks no bowel movement form many weeks" and that her kidney function is no good she is complaining of wasting of her upper arm and lower leg calfs and thighs and arms bilaterally . she says she has gained weight and she is confused as to why. Pt however seems to be possibly having a possible delusional or dilerium process ... she is a poor historian and she seems confused but it does not seem like acute delirium.. ROS is limited due to ROS HPI PFSH Past Medical History Hx Anticoagulant Therapy: No Arthritis: No Asthma: No Autoimmune Disease: No Blood Disorders: No Bipolar Disorder: Yes Anxiety: Yes Depression: Yes Heart Rhythm Problems: No Cancer: No Cardiovascular Problems: No High Cholesterol: No Chemotherapy: No Chest Pain: No Congestive Heart Failure: No COPD: No Cerebrovascular Accident: No Diabetes: No Diminished Hearing: No Endocrine: No Gastrointestinal Disorders: Yes GERD: No Genitourinary: No Headaches: Yes Hepatitis: No Hiatal Hernia: No Hypertension: No Immune Disorder: No Kidney Stones: No Musculoskeletal: No Neurologic: No Psychiatric: Yes (Schizoaffective Disorder, BiPolar Disorder) Reproductive: No Respiratory: No Immunizations Current: No Migraines: No Myocardial Infarction: No Radiation Therapy: No Renal Failure: No Schizophrenia: Yes Seizures: Yes Sickle Cell Disease: No Sleep Apnea: No Thyroid Disease: No Ulcer: No Influenza Vaccination: Yes Menopausal: Yes : 1 Para: 1 Miscarriage: 0 : 2 Ectopic : No Ovarian Cysts: No Dilation and Curettage (D&C): No Tubal Ligation: No Past Surgical History Abdominal Surgery: No AICD: No Appendectomy: No Arteriovenous Shunt: No Cardiac Surgery: No Section: No Cholecystectomy: No Ear Surgery: No Endocrine Surgery: No Eye Surgery: No Genitourinary Surgery: No Gynecologic Surgery: No Hysterectomy: No Insulin Pump: No Joint Replacement: No Neurologic Surgery: No Oral Surgery: No Pacemaker: No Thoracic Surgery: No Other Surgery: Yes (TONSILS REMOVED A CHILD) Social History Alcohol Use: No Tobacco Use: No Substance Use: No (OLELLS"DON'T ASK ME ABOUT THAT".) Allergies-Medications (Allergen,Severity, Reaction): Coded Allergies: chlorpromazine (Unverified Allergy, Severe, SWOLLEN TONGUE, 12/26/17) codeine (Unverified Allergy, Severe, 12/26/17) divalproex sodium (Unverified Allergy, Severe, SWOLLEN TONGUE, 12/26/17) haloperidol (Unverified Allergy, Severe, 12/26/17) thioridazine (Unverified Allergy, Severe, SWOLLEN TONGUE, 12/26/17) thiothixene (Unverified Allergy, Severe, 12/26/17) Reported Meds & Prescriptions Reported Meds & Active Scripts Active Gnp Senna Plus 8.6-50 mg (Sennosides-Docusate Sodium) 8.6 Mg-50 Mg Tab 1 Tab PO BID 30 Days Aripiprazole 20 Mg Tab 20 Mg PO DAILY 30 Days [Albuterol Hfa Inh] 60 PUFF/8 GM Aero 2 Puff INH BID 30 Days Reported Diphenhydramine (Diphenhydramine HCl) 25 Mg Cap 25 Mg PO HS PRN Ibuprofen 800 Mg Tab 800 Mg PO DAILY PRN Vitamin D-1000 (Cholecalciferol) 1,000 Unit Tab 1,000 Units PO DAILY Multi-Vitamin Daily (Multiple Vitamin) 1 Tab Tab 1 Tab PO DAILY Bisacodyl EC (Bisacodyl) 5 Mg Tabec 5 Mg PO HS PRN Review of Systems ROS Limitations: Poor Historian Gastrointestinal: Positive: Nausea, Constipation Genitourinary: Positive: Decreased Urinary Output, Flank Pain Physical Exam Narrative GENERAL: pt is strange in affect staring SKIN: Warm and dry. HEAD: Atraumatic. Normocephalic. EYES: Pupils equal and round. No scleral icterus. No injection or drainage. ENT: No nasal bleeding or discharge. Mucous membranes pink and moist. NECK: Trachea midline. No JVD. CARDIOVASCULAR: Regular rate and rhythm. RESPIRATORY: No accessory muscle use. Clear to auscultation. Breath sounds equal bilaterally. GASTROINTESTINAL: Abdomen soft, non-tender, nondistended. Hepatic and splenic margins not palpable. MUSCULOSKELETAL: Extremities without clubbing, cyanosis, or edema. No obvious deformities. NEUROLOGICAL: Awake and alert. No obvious cranial nerve deficits. Motor grossly within normal limits. Five out of 5 muscle strength in the arms and legs. Normal speech. PSYCHIATRIC: Appropriate mood and affect; insight and judgment normal. Data Data Last Documented VS Orders Orders Complete Blood Count With Diff (12/24/17 23:41) Comprehensive Metabolic Panel (12/24/17 23:41) Lipase (12/24/17 23:41) Urinalysis - C+S If Indicated (12/24/17 23:41) Abdomen, Flat & Upright (12/25/17 ) Diatrizoate Liq ( Gastroview Liq) (12/25/17 02:30) Ct Abd/Pel W/O Iv Contrast (12/25/17 ) Oral Contrast - Adult (12/25/17 02:46) Ed Discharge Order (12/25/17 06:08) Labs Laboratory Tests Test 12/24/17 23:45 White Blood Count 6.9 TH/MM3 Red Blood Count 4.66 MIL/MM3 Hemoglobin 14.2 GM/DL Hematocrit 42.9 % Mean Corpuscular Volume 92.0 FL Mean Corpuscular Hemoglobin 30.6 PG Mean Corpuscular Hemoglobin Concent 33.2 % Red Cell Distribution Width 13.1 % Platelet Count 283 TH/MM3 Mean Platelet Volume 9.1 FL Neutrophils (%) (Auto) 48.8 % Lymphocytes (%) (Auto) 41.9 % Monocytes (%) (Auto) 6.2 % Eosinophils (%) (Auto) 2.5 % Basophils (%) (Auto) 0.6 % Neutrophils # (Auto) 3.4 TH/MM3 Lymphocytes # (Auto) 2.9 TH/MM3 Monocytes # (Auto) 0.4 TH/MM3 Eosinophils # (Auto) 0.2 TH/MM3 Basophils # (Auto) 0.0 TH/MM3 CBC Comment DIFF FINAL Differential Comment Urine Color YELLOW Urine Turbidity CLEAR Urine pH 6.5 Urine Specific [place] 1.015 Urine Protein TRACE mg/dL Urine Glucose (UA) NEG mg/dL Urine Ketones TRACE mg/dL Urine Occult Blood NEG Urine Nitrite NEG Urine Bilirubin NEG Urine Urobilinogen 2.0 MG/DL Urine Leukocyte Esterase NEG Urine RBC LESS THAN 1 /hpf Urine WBC 3 /hpf Urine Renal Epithelial Cells <1 /hpf Urine Hyaline Casts 2 /lpf Urine Mucus FEW /lpf Microscopic Urinalysis Comment CULT NOT INDICATED Blood Urea Nitrogen 17 MG/DL Creatinine 1.07 MG/DL Random Glucose 72 MG/DL Total Protein 7.1 GM/DL Albumin 3.9 GM/DL Calcium Level 9.1 MG/DL Alkaline Phosphatase 43 U/L Aspartate Amino Transf (AST/SGOT) 14 U/L Alanine Aminotransferase (ALT/SGPT) 17 U/L Total Bilirubin 0.4 MG/DL Sodium Level 144 MEQ/L Potassium Level 3.8 MEQ/L Chloride Level 110 MEQ/L Carbon Dioxide Level 26.4 MEQ/L Anion Gap 8 MEQ/L Estimat Glomerular Filtration Rate 52 ML/MIN Lipase 62 U/L [facility] Medical Decision Making Medical Screen Exam Complete: Yes Emergency Medical Condition: Yes Differential Diagnosis UTI vs chronic constipation due to medication , vs SBO vs ileus vs other Narrative Course pt is constipated I rule out SBO with abdo Xray and then CT pt discharged back to SNF Diagnosis Primary Impression: Chronic constipation Patient Instructions: Constipation (ED), General Instructions Disposition: 03 DISCHARGE TO SNF Condition: Chase Traore MD December 25, 2017 00:03
--- NOTE | 2017-12-25 00:41 | RADRPT ---
EXAM DATE: 12/25/2017 12:34 AM EDT AGE/SEX: 62 years / Female INDICATIONS: Abdominal pain and distention. CLINICAL DATA: This is the patient's initial encounter. Patient reports that signs and symptoms have been present for 1 month and indicates a pain score of 10/10. MEDICAL/SURGICAL HISTORY: . Chronic obstructive pulmonary disease. None. COMPARISON: [facility] [place], ABDOMEN KUB ONLY, 11/20/2017. . FINDINGS: AP supine and erect views the abdomen were performed. Gas and stool is noted segmentally in the colon . There are multiple loops of nondilated air-containing small bowel in the central abdomen and pelvis . There is no evidence of free air or mass effect. The lung bases are clear. The bony structures viktoria in intact. CONCLUSION: Nonspecific, nonobstructive bowel gas pattern which may represent a mild ileus. Electronically signed by: Dejon Mills MD 12/25/2017 12:40 AM EDT
[2017-12-25 00:51] LABS: AUTOMATED NEUTROPHIL # 3.4 TH/MM3 (1.8-7.7); BASOPHIL % 0.6 % (0.0-2.0); EOSINOPHIL # 0.2 TH/MM3 (0-0.4); EOSINOPHIL % 2.5 % (0.0-4.0); HEMATOCRIT 42.9 % (35.0-46.0); HEMOGLOBIN 14.2 GM/DL (11.6-15.3); LYMPH % 41.9 % (9.0-44.0); LYMPHOCYTE # 2.9 TH/MM3 (1.0-4.8); MEAN CORPUSCULAR HEMOGLOBIN 30.6 PG (27.0-34.0); MEAN CORPUSCULAR HGB CONC 33.2 % (32.0-36.0); MEAN PLATELET VOLUME 9.1 FL (7.0-11.0); MONO % 6.2 % (0.0-8.0); MONOCYTE # 0.4 TH/MM3 (0-0.9); NEUT % 48.8 % (16.0-70.0); PLATELET COUNT 283 TH/MM3 (150-450); RED BLOOD COUNT 4.66 MIL/MM3 (4.00-5.30); RED CELL DISTRIBUTION WIDTH 13.1 % (11.6-17.2); WHITE BLOOD COUNT 6.9 TH/MM3 (4.0-11.0)
[2017-12-25 01:00] LABS: BILIRUBIN, URINE NEG (NEG); BLOOD, URINE NEG (NEG); GLUCOSE,URINE NEG (NEG); HYALINE CAST, URINE 2 /lpf (RARE); KETONE, URINE TRACE mg/dL (NEG); MUCUS URINE FEW /lpf (OCC); NITRITE,URINE NEG (NEG); PH, URINE 6.5 (5.0-8.5); RENAL EPITHELIAL CELLS <1 /hpf; URINE COLOR YELLOW (YELLW/STRAW); URINE LEUKOCYTE ESTERASE NEG (NEG)
[2017-12-25 01:13] LABS: ALBUMIN 3.9 GM/DL (3.4-5.0); ALT (GPT) 17 U/L (10-53); AST (GOT) 14 U/L (15-37); BICARBONATE 26.4 MEQ/L (21.0-32.0); BLOOD UREA NITROGEN 17 MG/DL (7-18); CALCIUM 9.1 MG/DL (8.5-10.1); CHLORIDE 110 MEQ/L (98-107); CREATININE 1.07 MG/DL (0.50-1.00); GLOMERULAR FILTRATION RATE 52 ML/MIN (>89); GLUCOSE,RANDOM 72 MG/DL (74-106); SODIUM (NA) 144 MEQ/L (136-145)
[2017-12-25 01:16] LABS: ALKALINE PHOSPHATASE 43 U/L (45-117); TOTAL BILIRUBIN ADULT 0.4 MG/DL (0.2-1.0); TOTAL PROTEIN 7.1 GM/DL (6.4-8.2)
[2017-12-25] MEDS ORDERED: DIATRIZOATE MEGLUM/DIATRIZOATE SOD 9 ML CUP PO ONE (02:30)
[2017-12-25 03:29] VITALS: BP 115/65; PULSE 78; RESP 16; O2SAT 99
--- NOTE | 2017-12-25 05:57 | RADRPT ---
EXAM DATE: 12/25/2017 5:30 AM EDT AGE/SEX: 62 years / Female INDICATIONS: Abdomen pain; constipation. CLINICAL DATA: This is the patient's initial encounter. Patient reports that signs and symptoms have been present for 1 day and indicates a pain score of 5/10. MEDICAL/SURGICAL HISTORY: . Phych None. RADIATION DOSE: 6.64 CTDI (mGy) COMPARISON: No prior [place] exams available for comparison. TECHNIQUE: Multiple contiguous axial images were obtained through the abdomen. Images were obtained using multiple row detector helical technique. Using dose reduction techniques, radiation dose was ke pt as low as reasonably achievable to obtain optimal diagnostic quality images. FINDINGS: Lower Lungs: The visualized lower lungs are except for mild scarring or atelectasis in the dependent portions of the lung bases. Liver: The liver has a homogeneous density without space-occupying lesion. There is no dilation of th e biliary tree. Spleen: Homogeneous density without enlargement. Pancreas: Unremarkable without mass or calcification. Kidneys: Normal in size and shape. No evidence of mass or hydronephrosis. Adrenal Glands: Unremarkable. Aorta: The aorta and proximal iliac vessels are grossly unremarkable without aneurysmal dilation. Bowel/Mesentery: There is opacification of portions of the small bowel. The colon isn't opacified. T here are multiple loops of nondilated air-containing small bowel with multiple air-fluid levels. Gas and stool noted segmentally in the colon. There is no focal inflammatory change. There is no free air or fluid. Abdominal Wall: Intact. Retroperitoneum: No evidence of adenopathy in the retrocrural, para-aortic, or deep pelvic regions. Bladder: Contours are smooth. Reproductive Organs: No abnormal masses or calcifications seen. Inguinal: The inguinal region is unremarkable without evidence of adenopathy. Bony Structures: Unremarkable. CONCLUSION: 1. Nonspecific, nonobstructive bowel gas pattern which may represent a mild ileus and/or gastroenter itis. There is a moderate amount of stool in the colon. Electronically signed by: Dejon Mills MD 12/25/2017 5:56 AM EDT
[2017-12-25] MEDS ORDERED: MIRA3350 PO (06:16)
[2017-12-26] MEDS ORDERED: DIPH25CA PO (08:39)
[2017-12-26] MEDS ORDERED: IBUP1TAB7 PO (08:39)
== END 2017-12-25 10:28 ==
LOC: NEPE 22:58 → NEDAMB 12-25 10:28
DX: K59.09 Other constipation (principal)
CPT/HCPCS: 74019; 74176; 80053; 81001; 83690; 85025; 99285; Q9963

== ENCOUNTER 2017-12-25 15:37 | Inpatient (IN) | payer MEDICARE, OTHER ==
[~2017-12-25] VITALS: Ht 154.9 cm; Wt 50.0 kg
[~2017-12-25 15:37] MED LIST changes: +MIRA3350 PO
--- NOTE | 2017-12-25 16:17 | PD ---
HPI Chief Complaint: Psychiatric Symptoms Time Seen by Provider: 15:54 Travel History International Travel<30 days: No Contact w/Intl Traveler<30days: No History of Present Illness HPI 62 YO F with PMH of schizophrenia presents to the ED under exparte order for psychiatric evaluation. Patient is unable to care for herself. I discussed this with her. Patient denies suicidal ideation but she states "I just want my suffering to be over." She complains of chronic constipation and back pain, but has no other somatic complaints. She was discharged from the ED earlier this morning. PFSH Past Medical History Hx Anticoagulant Therapy: No Arthritis: No Asthma: No Autoimmune Disease: No Blood Disorders: No Bipolar Disorder: Yes Anxiety: Yes Depression: Yes Heart Rhythm Problems: No Cancer: No Cardiovascular Problems: No High Cholesterol: No Chemotherapy: No Chest Pain: No Congestive Heart Failure: No COPD: No Cerebrovascular Accident: No Diabetes: No Diminished Hearing: No Endocrine: No Gastrointestinal Disorders: Yes GERD: No Genitourinary: No Headaches: Yes Hepatitis: No Hiatal Hernia: No Hypertension: No Immune Disorder: No Kidney Stones: No Musculoskeletal: No Neurologic: No Psychiatric: Yes (Schizoaffective Disorder, BiPolar Disorder) Reproductive: No Respiratory: No Immunizations Current: No Migraines: No Myocardial Infarction: No Radiation Therapy: No Renal Failure: No Schizophrenia: Yes Seizures: Yes Sickle Cell Disease: No Sleep Apnea: No Thyroid Disease: No Ulcer: No Menopausal: Yes : 1 Para: 1 Miscarriage: 0 : 2 Ectopic : No Ovarian Cysts: No Dilation and Curettage (D&C): No Tubal Ligation: No Past Surgical History Abdominal Surgery: No AICD: No Appendectomy: No Arteriovenous Shunt: No Cardiac Surgery: No Section: No Cholecystectomy: No Ear Surgery: No Endocrine Surgery: No Eye Surgery: No Genitourinary Surgery: No Gynecologic Surgery: No Hysterectomy: No Insulin Pump: No Joint Replacement: No Neurologic Surgery: No Oral Surgery: No Pacemaker: No Thoracic Surgery: No Other Surgery: Yes (TONSILS REMOVED A CHILD) Social History Alcohol Use: No Tobacco Use: No Substance Use: No (YELLS"DON'T ASK ME ABOUT THAT".) Allergies-Medications (Allergen,Severity, Reaction): Coded Allergies: chlorpromazine (Unverified Allergy, Severe, SWOLLEN TONGUE, 12/24/17) codeine (Unverified Allergy, Severe, 12/24/17) divalproex sodium (Unverified Allergy, Severe, SWOLLEN TONGUE, 12/24/17) haloperidol (Unverified Allergy, Severe, 12/24/17) thioridazine (Unverified Allergy, Severe, SWOLLEN TONGUE, 12/24/17) thiothixene (Unverified Allergy, Severe, 12/24/17) Reported Meds & Prescriptions Reported Meds & Active Scripts Active Miralax Powder (Polyethylene Glycol 3350 Powder) 17 Gm Powd 17 Gm PO DAILY Mix and dissolve one measuring cap-ful (17 grams) in water or juice. Gnp Senna Plus 8.6-50 mg (Sennosides-Docusate Sodium) 8.6 Mg-50 Mg Tab 1 Tab PO BID 30 Days Aripiprazole 20 Mg Tab 20 Mg PO DAILY 30 Days [Albuterol Hfa Inh] 60 PUFF/8 GM Aero 2 Puff INH BID 30 Days Reported Vitamin D-1000 (Cholecalciferol) 1,000 Unit Tab 1,000 Units PO DAILY Multi-Vitamin Daily (Multiple Vitamin) 1 Tab Tab 1 Tab PO DAILY Bisacodyl EC (Bisacodyl) 5 Mg Tabec 5 Mg PO HS PRN Review of Systems Except as stated in HPI: all other systems reviewed are Neg Physical Exam Narrative GENERAL: Well-nourished, well-developed white female no acute distress. SKIN: Focused skin assessment warm/dry. HEAD: Normocephalic. EYES: No scleral icterus. No injection or drainage. NECK: Supple, trachea midline. No JVD or lymphadenopathy. CARDIOVASCULAR: Regular rate and rhythm without murmurs, gallops, or rubs. RESPIRATORY: Breath sounds clear and equal bilaterally. No accessory muscle use. GASTROINTESTINAL: Abdomen soft, non-tender, nondistended. Hyperactive bowel sounds. MUSCULOSKELETAL: No cyanosis, or edema. BACK: Nontender without obvious deformity. No CVA tenderness. Data Data Orders Orders Diet Regular Basic (12/25/17 Dinner) MDM Medical Decision Making Medical Screen Exam Complete: Yes Emergency Medical Condition: Yes Differential Diagnosis Adjustment disorder versus anxiety versus bipolar versus depression versus dementia versus electrolyte disorder versus malingering versus mood disorder versus ODD versus psychosis versus PTSD versus schizophrenia versus schizoaffective disorder versus substance-induced mood disorder versus other Narrative Course 62 YO F with PMH of schizophrenia presents to the ED under exparte order for psychiatric evaluation. Patient is unable to care for herself. I discussed this with her. Patient denies suicidal ideation but she states "I just want my suffering to be over." She complains of chronic constipation and back pain, but has no other somatic complaints. She was discharged from the ED earlier this morning. I reviewed the CBC, CMP and UA. No concerning abnormalities. The patient is medically cleared for psychiatric evaluation. Philomena Barfield December 25, 2017 16:17
[2017-12-25 17:52] VITALS: BP 99/44; PULSE 46; RESP 16; TEMP 96.5; O2SAT 95
[2017-12-25 21:19] VITALS: BP 93/58; PULSE 51; RESP 16; TEMP 98.4; O2SAT 98
[2017-12-26 04:58] VITALS: BP 99/57; PULSE 54; RESP 16; O2SAT 96
[2017-12-26] MEDS ORDERED: LORazepam 0.5 MG TAB PO PRN (08:15)
[2017-12-26] MEDS ORDERED: ALUMINUM/MAGNESIUM/SIMETH 30 ML CUP PO PRN (08:15)
[2017-12-26] MEDS ORDERED: ACETAMINOPHEN 325 MG TAB PO PRN (08:15)
[2017-12-26] MEDS ORDERED: LORazepam 2 MG/ML VIAL IM PRN ×2 (08:15)
[2017-12-26] MEDS ORDERED: MAGNESIUM HYDROXIDE SUSP 30 ML CUP PO PRN ×2 (08:15→16:00)
[2017-12-26] MEDS ORDERED: DIPH25CA PO (08:39)
[2017-12-26] MEDS ORDERED: IBUP1TAB7 PO (08:39)
[2017-12-26] MEDS ORDERED: PALIPERIDONE ER 6 MG TAB PO SCH (09:00)
[2017-12-26] MEDS ORDERED: LITHIUM CARBONATE 300 MG TAB PO SCH (09:00)
[2017-12-26] MEDS: NICOTINE 21 MG/24 HR PATCH T-DERMAL SCH (10:00)
--- NOTE | 2017-12-26 15:20 | HHI.HP ---
Provisional Diagnosis Admission Date December 26, 2017 at 08:11 Jackhorn I. Schizophrenia, unspecified eating disorder Jackhorn II. Deferred Jackhorn III. No significant medical history Jackhorn IV. Multiple psychiatric admissions, poor compliance medication Jackhorn V. 40 Certification of Person's Competence To Provide Express and Informed Consent I have personally examined Lesli Rollins , a person being served at [facility] on, December 26, 2017 15:09. Express and informed consent means consent voluntarily given in writing, by a competent person, after sufficient explanation and disclosure of the subject matter involved to enable the person to make a knowing and willful decision without any element of force, fraud, deceit, duress, or other form of constraint or coercion. This person is 18 years of age or older, is not now known to be incompetent to consent to treatment with a guardian advocate, and does not have a health care surrogate or proxy currently making medical treatment decisions. I have found this person to be one of the following: [] Competent to provide express and informed consent, as defined above, for voluntary admission to this facility and is competent to provide express and informed consent for treatment. He/she has the consistent capacity to make well reasoned, willful, and knowing decisions concerning his or her medical or mental health treatment. The person fully and consistently understands the purpose of the admission for examination/placement and is fully capable of personally exercising all rights assured [place] Incompetent to provide express and informed consent to voluntary admission, and this is incompetent to provide express and informed consent to treatment. The person must be transferred to involuntary status and a petition for a guardian advocate filed with the Circuit Court. [x] Refusing to provide express and informed consent to voluntary admission but is competent to provide express and informed consent for treatment. The person must be discharged or transferred to involuntary status. Form shall be completed within 24 hours of a person's arrival at the receiving facility and filed in the clinical record of each person: 1. Admitted on a voluntary basis 2. Permitted to provide express and informed consent to his/her own treatment 3. Allowed to transfer from involuntary to voluntary status 4. Prior to permitting a person to consent to his or her own treatment after having been previously found incompetent to consent to treatment. History of Present Illness Capacity: Has Capacity HPI The patient is 62-year-old woman, domiciled in [facility] in [facility], single, unemployed, supported by [facility], mother of a 33 years old daughter, with psychiatric history of schizophrenia, schizoaffective disorder, multiple psychiatric admissions, the last psychiatric admission was here in [place] in November 2017 under the care of Dr. Weber, documentation review, she has a FACT TEAM, outpatient psychiatric care with Dr. Wan , she is on Abilify 15 mg daily, she has history of ECT , no significant medical history, who presents to the ED under exparte order for psychiatric evaluation. Patient is unable to care for herself. I discussed this with her. Patient denies suicidal ideation but she states "I just want my suffering to be over." She complains of chronic constipation and back pain, but has no other somatic complaints. She was discharged from the ED earlier this morning. Chart reviewed. Case discussed with nursing staff. On psychiatric evaluation today the patient presents as irritable, at the beginning oppositional and resistant. She reports that she is here due to gastric problems, "I am not digesting my food. My food is not going to my stomach and I am not defecating and urinating " She believes that food is being stored in her muscles and in her arms. She believes these areas of her body are filled with "hard, undigested food." She does pass flatus during the interview. She is in denial about reported weight loss. When asked about SI/HI, she replies "I'd like this suffering to be over with." No reported urge to hurt herself on the inpatient unit. Affect is dysphoric and irritable. She is psychomotor agitated and paces during the interview. She is somewhat disinhibited and disrobes in order to show me the food she feels is collecting in her abdomen. In contradiction to what the patient is complaining, she has been asking for breakfast stating that she is very hungry. Denies the use of illegal drugs and alcohol. Review of Systems Constitutional: DENIES: Diaphoretic episodes, Fatigue, Fever, Weight gain, Weight loss, Chills, Dizziness, Change in appetite, Night Sweats Endocrine: DENIES: Abnorml menstrual pattern, Heat/cold intolerance, Polydipsia , Polyuria, Polyphagia Eyes: DENIES: Blurred vision, Diplopia, Eye inflammation, Eye pain, Vision loss , Photosensitivity, Double Vision Ears, nose, mouth, throat: DENIES: Tinnitus, Hearing loss, Vertigo, Nasal discharge, Oral lesions, Throat pain, Hoarseness, Ear Pain, Running Nose, Epistaxis, Sinus Pain, Toothache, Odynophagia Respiratory: DENIES: Apneas, Cough, Snoring, Wheezing, Hemoptysis, Sputum production, Shortness of breath Cardiovascular: DENIES: Chest pain, Palpitations, Syncope, Dyspnea on Exertion , PND, Lower Extremity Edema, Orthopnea, Claudication Gastrointestinal: DENIES: Abdominal pain, Black stools, Bloody stools, Constipation, Diarrhea, Nausea, Vomiting, Difficulty Swallowing, Anorexia Genitourinary: DENIES: Abnormal vaginal bleeding, Dysmenorrhea, Dyspareunia, Sexual dysfunction, Urinary frequency, Urinary incontinence, Urgency, Hematuria , Dysuria, Nocturia, Vaginal discharge Musculoskeletal: DENIES: Joint pain, Muscle aches, Stiffness, Joint Swelling, Back pain, Neck pain Integumentary: DENIES: Abnormal pigmentation, Pruritus, Rash, Nail changes, Breast masses, Breast skin changes, Nipple discharge Hematologic/lymphatic: DENIES: Bruising, Lymphadenopathy Immunologic/allergic: DENIES: Eczema, Urticaria Neurologic: DENIES: Abnormal gait, Headache, Localized weakness, Paresthesias, Seizures, Speech Problems, Tremor, Poor Balance Psychiatric: COMPLAINS OF: Agitation, Delusions Substance Abuse History Drugs/Alcohol past 12 months She denies the use of illegal drugs alcohol Past Family Social History Coded Allergies: chlorpromazine (Unverified Allergy, Severe, SWOLLEN TONGUE, 12/26/17) codeine (Unverified Allergy, Severe, 12/26/17) divalproex sodium (Unverified Allergy, Severe, SWOLLEN TONGUE, 12/26/17) haloperidol (Unverified Allergy, Severe, 12/26/17) thioridazine (Unverified Allergy, Severe, SWOLLEN TONGUE, 12/26/17) thiothixene (Unverified Allergy, Severe, 12/26/17) Active Scripts Sennosides-Docusate Sodium (Gnp Senna Plus 8.6-50 mg) 8.6 Mg-50 Mg Tab, 1 TAB PO BID for Health for 30 Days, #60 TAB 0 Refills Prov:Ottoniel Weber MD 11/24/17 Aripiprazole (Aripiprazole) 20 Mg Tab, 20 MG PO DAILY for Mental Health for 30 Days, #30 TAB 0 Refills Prov:Ottoniel Weber MD 11/24/17 [Albuterol Hfa Inh] 60 PUFF/8 GM AERO No Conflict Check, 2 PUFF INH BID for Health for 30 Days, 0 Refills Prov:Ottoniel Weber MD 11/24/17 Reported Medications Diphenhydramine (Diphenhydramine) 25 Mg Cap, 25 MG PO HS Y for INSOMNIA, CAP 0 Refills 12/26/17 Ibuprofen (Ibuprofen) 800 Mg Tab, 800 MG PO DAILY Y for PAIN, TAB 0 Refills 12/26/17 Cholecalciferol (Vitamin D-1000) 1,000 Unit Tab, 1000 UNITS PO DAILY for Nutritional Supplement, #1 BOTTLE 0 Refills 09/25/17 Multiple Vitamin (Multi-Vitamin Daily) 1 Tab Tab, 1 TAB PO DAILY for Nutritional Supplement, TAB 0 Refills 09/25/[address] (Bisacodyl EC) 5 Mg Tabec, 5 MG PO HS Y for CONSTIPATION, TAB 0 Refills 09/25/17 Discontinued Scripts Polyethylene Glycol 3350 Powder (Miralax Powder) 17 Gm Powd, 17 GM PO DAILY for Constipation, #1 CAN 0 Refills Mix and dissolve one measuring cap-ful (17 grams) in water or juice. Prov:Chase Flynn MD 12/25/17 Current Medications Medications (Trade) Dose Ordered Sig/Elzbieta Route Start Time Stop Time Status Last Admin (Ativan) 1 mg Q6H PRN PO 12/26/17 08:15 (Ativan Inj) 1 mg Q6H PRN IM 12/26/17 08:15 (Ativan) 0.5 mg Q12H PRN PO 12/26/17 08:15 (Ativan Inj) 0.5 mg Q12H PRN IM 12/26/17 08:15 (Tylenol) 650 mg Q4H PRN PO 12/26/17 08:15 (Milk Of Magnesia Liq) 30 ml DAILY PRN PO 12/26/17 08:15 (Mag-Al Plus Susp Liq) 30 ml Q6H PRN PO 12/26/17 08:15 (Habitrol 21 Mg Patch.24 Hr) 1 patch DAILY T-DERMAL 12/26/17 10:00 (Abilify) 10 mg DAILY PO 12/26/17 15:15 UNV Family Psych History No family psychiatric history Social History Patient was born and raised in [place], she lives in [facility], single, unemployed, supported by [facility], she has a 33 years old daughter, unemployed, supported by [facility], her highest level of education is 12 grade Patient's Strengths (min. 2) She lives in a structure environment, she has outpatient care Physical Exam Patient does not have any EPS, no psychomotor agitation or retardation, no gait disturbances, no withdrawal symptoms, no catatonic symptoms Vital Signs Vital Signs Date Time Temp Pulse Resp B/P (MAP) Pulse Ox O2 Delivery O2 Flow Rate FiO2 12/26/17 09:21 12/26/17 04:58 54 16 96 Room Air 12/25/17 21:19 98.4 Lab Results Test 12/26/17 14:33 Mental Status Examination Appearance: Appropriate Consciousness: Alert Orientation: x4 Motor Activity: Normal gait Speech: Unremarkable Language: Adequate Fund of Knowledge: Adequate Attention and Concentration: Adequate Memory: Unremarkable Mood: Angry Affect: Irritable Thought Process & Associations: Intact, Loose associations Thought Content: Bizarre thinking Hallucination Type: None Delusion Type: None, Bizarre, Somatic Suicidal Ideation: No Suicidal Plan: No Suicidal Intention: No Homicidal Ideation: No Homicidal Plan: No Homicidal Intention: No Insight: Poor Judgment: Poor Assessment & Plan Problem List: (1) Schizoaffective disorder, bipolar type ICD Codes: F25.0 - Schizoaffective disorder, bipolar type Status: Acute Assessment & Plan: The patient presents with irritability, impaired reality testing, loosening of associations, disorganized behavior and speech, prominent somatic delusions "my food is not being digested by my stomach". She has been Foote acted due to psychotic behavior and also due to self neglecting behavior. Given her level of psychosis the patient has an increased risk of danger to self. There is a patient with an extensive history of schizophrenia, schizoaffective disorder, audible psychiatric hospitalizations, fixed somatic delusions, noncompliance with medications. She needs psychiatric hospitalization for stabilization. I will restart her Abilify 10 mg daily. Collateral information from her psychiatrist/fact team is needed. Transfer patient to . Assessment & Plan Estimated LOS: days Khadar Constantino. MD December 26, 2017 15:20
[2017-12-26] MEDS ORDERED: BISACODYL 10 MG SUPP RECTAL PRN (16:00)
[2017-12-26] MEDS ORDERED: LACTULOSE SYRUP 20 GM/30 ML CUP PO PRN (16:00)
[2017-12-26] MEDS ORDERED: METOCLOPRAMIDE HCL SYRUP 10 MG/10 ML UDC PO SCH (17:00)
--- NOTE | 2017-12-26 17:05 | PD.CONS ---
HPI Service [facility] Consult Requested By Psychiatry team Reason for Consult Assist with medical management Primary Care Physician Stephane Matute M.D. Diagnoses: History of Present Illness Patient is a 62-year-old female with history of schizophrenia who came to the ED under expiratory order for psychiatric evaluation. Per review of records patient is unable to care for herself. She is now admitted to medical psychiatric unit for further evaluation. Consulted for assistance with medical management. Patient seen and examined today. Patient reports that she has not had been having a bowel movement and it has all been gas and that she has not voided properly for a month and more. Patient states that she only has" squirts of urine, and gas but nothing is coming out." Abdominal x-ray done yesterday shows nonspecific, nonobstructive bowel gas pattern which may represent a mild ileus. Patient states she continues to smoke cigarettes half a pack a day. Denies any alcohol use or any illicit drug use. Denies pain and discomfort. Denies SOB/ dyspnea. Denies chest pain, palpitations, headaches, dizziness. Denies fevers, chills, n/v/d. Denies dysuria. Review of Systems Except as stated in HPI: all other systems reviewed are Neg Past Family Social History Allergies: Coded Allergies: chlorpromazine (Unverified Allergy, Severe, SWOLLEN TONGUE, 12/26/17) codeine (Unverified Allergy, Severe, 12/26/17) divalproex sodium (Unverified Allergy, Severe, SWOLLEN TONGUE, 12/26/17) haloperidol (Unverified Allergy, Severe, 12/26/17) thioridazine (Unverified Allergy, Severe, SWOLLEN TONGUE, 12/26/17) thiothixene (Unverified Allergy, Severe, 12/26/17) Past Medical History Hyperlipidemia Arthritis Vitamin D deficiency Seizure disorder Bipolar disorder Schizophrenia Past Surgical History States "only " Reported Medications Reported Meds & Active Scripts Active Gnp Senna Plus 8.6-50 mg (Sennosides-Docusate Sodium) 8.6 Mg-50 Mg Tab 1 Tab PO BID 30 Days Aripiprazole 20 Mg Tab 20 Mg PO DAILY 30 Days [Albuterol Hfa Inh] 60 PUFF/8 GM Aero 2 Puff INH BID 30 Days Reported Diphenhydramine (Diphenhydramine HCl) 25 Mg Cap 25 Mg PO HS PRN Ibuprofen 800 Mg Tab 800 Mg PO DAILY PRN Vitamin D-1000 (Cholecalciferol) 1,000 Unit Tab 1,000 Units PO DAILY Multi-Vitamin Daily (Multiple Vitamin) 1 Tab Tab 1 Tab PO DAILY Bisacodyl EC (Bisacodyl) 5 Mg Tabec 5 Mg PO HS PRN Active Ordered Medications Current Medications Medications (Trade) Dose Ordered Sig/Elzbieta Route Start Time Stop Time Status Last Admin (Ativan) 1 mg Q6H PRN PO 12/26/17 08:15 (Ativan Inj) 1 mg Q6H PRN IM 12/26/17 08:15 (Ativan) 0.5 mg Q12H PRN PO 12/26/17 08:15 (Ativan Inj) 0.5 mg Q12H PRN IM 12/26/17 08:15 (Tylenol) 650 mg Q4H PRN PO 12/26/17 08:15 (Milk Of Magnesia Liq) 30 ml DAILY PRN PO 12/26/17 08:15 (Mag-Al Plus Susp Liq) 30 ml Q6H PRN PO 12/26/17 08:15 (Habitrol 21 Mg Patch.24 Hr) 1 patch DAILY T-DERMAL 12/26/17 10:00 (Abilify) 10 mg DAILY PO 12/26/17 15:15 Miscellaneous Information 1 DAILY T-DERMAL 12/27/17 09:00 Sodium Chloride 1,000 ml @ 100 mls/hr Q10H IV 12/26/17 16:00 (Alexandra-Colace) 2 tab BID PO 12/26/17 21:00 (Lactulose Liq) 30 ml TID PRN PO 12/26/17 16:00 (Dulcolax Supp) 10 mg DAILY PRN RECTAL 12/26/17 16:00 (Milk Of Magnesia Liq) 30 ml Q6H PRN PO 12/26/17 16:00 Family History Does not know of any family medical history Social History Tobacco use half a pack per day current day smoker Denies alcohol use Denies illicit drug use Physical Exam Vital Signs Vital Signs Date Time Temp Pulse Resp B/P (MAP) Pulse Ox O2 Delivery O2 Flow Rate FiO2 12/26/17 09:21 12/26/17 04:58 54 16 99/57 (71) 96 Room Air 12/25/17 21:19 98.4 51 16 93/58 (70) 98 Room Air 12/25/17 17:52 96.5 46 16 99/44 (62) 95 Physical Exam GENERAL: This is a thin appearing, well-developed patient, in no apparent distress. SKIN: Cool and dry. HEAD: Atraumatic. Normocephalic. No temporal or scalp tenderness. EYES: Pupils equal round and reactive. Extraocular motions intact. No scleral icterus. No injection or drainage. ENT: Nose without bleeding. Throat without erythema. Uvula midline. Airway patent. NECK: Trachea midline. CARDIOVASCULAR: Bradycardic without murmurs, gallops, or rubs. RESPIRATORY: Clear to auscultation. Breath sounds equal bilaterally. No wheezes , rales, or rhonchi. GASTROINTESTINAL: Abdomen soft, non-tender, nondistended. Active bowel sounds left upper quadrant and left lower quadrant. Hypoactive right lower quadrant MUSCULOSKELETAL: Extremities without clubbing, cyanosis, or edema. NEUROLOGICAL: Awake and alert. Motor and sensory grossly within normal limits. Normal speech. Laboratory Laboratory Tests Test 12/26/17 14:33 Raven Level LESS THAN 0.1 Assessment and Plan Assessment and Plan Patient is a 62-year-old female with history of schizophrenia who came to the ED under expiratory order for psychiatric evaluation. Per review of records patient is unable to care for herself. She is now admitted to medical psychiatric unit for further evaluation. Consulted for assistance with medical management. Schizophrenia, bipolar disorder -Managed by psychiatry team Mild ileus No bowel movement Possibly poor p.o. intake -Complains of no bowel movement only gas, denies nausea, vomiting -Abdominal x-ray 12/25 showed mild ileus -Lactulose 1 dose now, bisacodyl 1 -Encourage p.o. hydration Urinary retention -Check UA -Straight cath -Bladder scan as needed -If retention is noted, will start patient on bethanechol Seizure disorder? -Seizure precaution -Not been any seizure medication -on Abilify, lithium Bradycardia, asymptomatic -No treatment indicated. This is been diagnosed on previous admission DVT prop early ambulation Code Status Full code Discussed Condition With Patient, nursing Marva Walker December 26, 2017 17:05
[2017-12-26] MEDS: ARIPiprazole 10 MG TAB PO SCH (17:20)
[2017-12-26] MEDS: LORazepam 1 MG TAB PO PRN (17:20)
[2017-12-26] MEDS ORDERED: LACTULOSE SYRUP 20 GM/30 ML CUP PO ONE (18:00)
[2017-12-26] MEDS ORDERED: BISACODYL 10 MG SUPP RECTAL ONE (18:00)
[2017-12-26] MEDS: SODIUM CHLOR 0.9% 1000 ML INJ 1,000 ML IV SCH (18:08)
[2017-12-26 18:46] VITALS: BP 94/51; PULSE 62; RESP 16; TEMP 97.8; O2SAT 94
[2017-12-26 18:51] LABS: AMORPHOUS SEDIMENT, URINE RARE; BILIRUBIN, URINE NEG (NEG); BLOOD, URINE NEG (NEG); GLUCOSE,URINE NEG (NEG); KETONE, URINE NEG (NEG); MUCUS URINE FEW /lpf (OCC); NITRITE,URINE NEG (NEG); PH, URINE 6.5 (5.0-8.5); SQUAMOUS EPITHELIAL CELL URINE <1 /hpf (0-5); URINE COLOR YELLOW (YELLW/STRAW); URINE LEUKOCYTE ESTERASE TRACE (NEG)
[2017-12-26] MEDS: DOCUSATE SODIUM 50 MG/SENNA 8.6 MG TAB PO SCH (20:56)
[2017-12-27] MEDS: SODIUM CHLOR 0.9% 1000 ML INJ 1,000 ML IV SCH ×3 (02:00→22:00)
[2017-12-27 06:00] VITALS: BP 137/62; PULSE 42; RESP 16; TEMP 98.4; O2SAT 98
[2017-12-27] MEDS: NICOTINE 21 MG/24 HR PATCH T-DERMAL SCH (09:00)
[2017-12-27] MEDS: ARIPiprazole 10 MG TAB PO SCH (09:00)
[2017-12-27] MEDS: DOCUSATE SODIUM 50 MG/SENNA 8.6 MG TAB PO SCH ×2 (09:00→20:35)
[2017-12-27] MEDS: REMOVE OLD NICOTINE PATCH T-DERMAL SCH (09:00)
[2017-12-27 09:14] LABS: BLOOD UREA NITROGEN 21 MG/DL (7-18); CALCIUM 8.9 MG/DL (8.5-10.1); CHLORIDE 108 MEQ/L (98-107); CREATININE 0.96 MG/DL (0.50-1.00); GLOMERULAR FILTRATION RATE 59 ML/MIN (>89); GLUCOSE,RANDOM 93 MG/DL (74-106); SODIUM (NA) 140 MEQ/L (136-145)
[2017-12-27 09:15] LABS: CHOLESTEROL 174 MG/DL (120-200); TRIGLYCERIDES 45 MG/DL (42-150)
[2017-12-27 09:17] LABS: CHOLESTEROL/ HDL RATIO 3.37 RATIO; HDL CHOLESTEROL 51.5 MG/DL (40.0-60.0); LDL CHOLESTEROL 114 MG/DL (0-99)
[2017-12-27 10:32] LABS: AUTOMATED NEUTROPHIL # 4.3 TH/MM3 (1.8-7.7); BASOPHIL % 0.8 % (0.0-2.0); EOSINOPHIL # 0.1 TH/MM3 (0-0.4); EOSINOPHIL % 1.5 % (0.0-4.0); HEMATOCRIT 40.2 % (35.0-46.0); HEMOGLOBIN 13.4 GM/DL (11.6-15.3); LYMPH % 25.5 % (9.0-44.0); LYMPHOCYTE # 1.7 TH/MM3 (1.0-4.8); MEAN CELL VOLUME 91.2 FL (80.0-100.0); MEAN CORPUSCULAR HEMOGLOBIN 30.4 PG (27.0-34.0); MEAN CORPUSCULAR HGB CONC 33.4 % (32.0-36.0); MEAN PLATELET VOLUME 9.2 FL (7.0-11.0); MONO % 6.5 % (0.0-8.0); MONOCYTE # 0.4 TH/MM3 (0-0.9); NEUT % 65.7 % (16.0-70.0); PLATELET COUNT 257 TH/MM3 (150-450); RED BLOOD COUNT 4.41 MIL/MM3 (4.00-5.30); RED CELL DISTRIBUTION WIDTH 13.3 % (11.6-17.2); WHITE BLOOD COUNT 6.5 TH/MM3 (4.0-11.0)
--- NOTE | 2017-12-27 13:57 | HHI.PR ---
Subjective Remarks Follow-up visit schizophrenia, mild ileus, urinary retention. Patient seen and examined today. Patient is obsessed of not being able to have bowel movements. She presents her legs that she says has extra weight because she has not had a bowel movement. Discussed with patient that it is her skin and not extra weight/fluid. Reassurance provided patient is obsessed of bowel and bladder function. She has a hat in her toilet so that she could see if she is really urinating. Patient is being given laxatives. Otherwise, she denies pain or discomfort, chest pain palpitations, dizziness, fevers, chills, nausea, vomiting. Objective Vitals Vital Signs Date Time Temp Pulse Resp B/P (MAP) Pulse Ox O2 Delivery O2 Flow Rate FiO2 12/27/17 06:00 98.4 42 16 137/62 (87) 98 12/26/17 18:46 97.8 62 16 94/51 (65) 94 I/O 12/26/17 12/26/17 12/26/17 12/27/17 12/27/17 12/27/17 07:00 15:00 23:00 07:00 15:00 23:00 Intake Total 600 ml 360 ml Output Total 440 ml 500 ml Balance 160 ml -140 ml Intake Oral 600 ml 360 ml Output Urine Total 440 ml 500 ml # Voids 1 1 Result Diagram: 12/27/17 1001 12/27/17 0600 Objective Remarks GENERAL: This is a well-nourished, well-developed patient, in no apparent distress. SKIN: Warm and dry HEENT: Normocephalic. Pupils equal round and reactive. Nose without bleeding. Airway patent. NECK: Trachea midline. CARDIOVASCULAR: Regular rate and rhythm without murmurs, gallops, or rubs. RESPIRATORY: Clear to auscultation. Breath sounds equal bilaterally. No wheezes , rales, or rhonchi. GASTROINTESTINAL: Abdomen soft, non-tender, nondistended. Bowel Sounds normoactive x4. MUSCULOSKELETAL: Extremities without clubbing, cyanosis, or edema. NEUROLOGICAL: Awake and alert. Oriented to place, person. Moves all extremities. Normal speech. Easily irritable. A/P Problem List: (1) Schizoaffective disorder, bipolar type ICD Code: F25.0 - Schizoaffective disorder, bipolar type Status: Acute (2) Chronic constipation Status: Chronic Assessment and Plan Patient is a 62-year-old female with history of schizophrenia who came to the ED under expiratory order for psychiatric evaluation. Per review of records patient is unable to care for herself. She is now admitted to medical psychiatric unit for further evaluation. Consulted for assistance with medical management. Schizophrenia, bipolar disorder -Managed by psychiatry team Mild ileus No bowel movement Possibly poor p.o. intake -Complains of no bowel movement only gas, denies nausea, vomiting -Abdominal x-ray 12/25 showed mild ileus -Encourage p.o. hydration -Continue laxatives until BM is noted. Urinary retention - UA negative -Bladder scan as needed -On gentle IV fluid hydration. Patient is now voiding 500 mL's x2 this morning. Seizure disorder? -Seizure precaution -Not been any seizure medication -on Abilify, lithium Bradycardia, asymptomatic -No treatment indicated. This is been diagnosed on previous admission DVT prop early ambulation Marva Walker December 27, 2017 13:57
--- NOTE | 2017-12-27 15:50 | HHI.PYPN ---
Subjective Remarks The patient was seen today for psychiatric reevaluation. Documentation was reviewed. Case was discussed with nursing charge. On the evaluation the patient is calm, cooperative, focused in her last urinary deposition. She said that she is happy because she finally could urinate. She says that she is now wearing that she can also defecate "I hope that this medication will help". Patient is a little bit irritable, fixing her delusions, which is redirectable. Compliant on her medications, no significant side effects. No agitation, no aggressive behavior reported Review of Systems Psychiatric: COMPLAINS OF: Delusions Mental Status Examination Appearance: Appropriate Consciousness: Alert Orientation: x4 Motor Activity: Normal gait Speech: Unremarkable Language: Adequate Fund of Knowledge: Adequate Attention and Concentration: Adequate Memory: Unremarkable Mood: Angry Affect: Irritable Thought Process & Associations: Intact, Loose associations Thought Content: Bizarre thinking Hallucination Type: None Delusion Type: None, Bizarre, Somatic Suicidal Ideation: No Suicidal Plan: No Suicidal Intention: No Homicidal Ideation: No Homicidal Plan: No Homicidal Intention: No Insight: Poor Judgment: Poor Results Labs Test 12/26/17 18:24 12/27/17 06:00 12/27/17 10:01 Urine Color YELLOW Urine Turbidity HAZY Urine pH 6.5 Urine Specific [place] 1.015 Urine Protein NEG mg/dL Urine Glucose (UA) NEG mg/dL Urine Ketones NEG mg/dL Urine Occult Blood NEG Urine Nitrite NEG Urine Bilirubin NEG Urine Urobilinogen 2.0 MG/DL Urine Leukocyte Esterase TRACE Urine RBC 1 /hpf Urine WBC 2 /hpf Urine Squamous Epithelial Cells <1 /hpf Urine Amorphous Sediment RARE Urine Mucus FEW /lpf Microscopic Urinalysis Comment CATH-CULT NOT IND Blood Urea Nitrogen 21 MG/DL Creatinine 0.96 MG/DL Random Glucose 93 MG/DL Calcium Level 8.9 MG/DL Sodium Level 140 MEQ/L Potassium Level 4.6 MEQ/L Chloride Level 108 MEQ/L Carbon Dioxide Level 25.0 MEQ/L Anion Gap 7 MEQ/L Estimat Glomerular Filtration Rate 59 ML/MIN Triglycerides Level 45 MG/DL Cholesterol Level 174 MG/DL LDL Cholesterol 114 MG/DL HDL Cholesterol 51.5 MG/DL Cholesterol/HDL Ratio 3.37 RATIO White Blood Count 6.5 TH/MM3 Red Blood Count 4.41 MIL/MM3 Hemoglobin 13.4 GM/DL Hematocrit 40.2 % Mean Corpuscular Volume 91.2 FL Mean Corpuscular Hemoglobin 30.4 PG Mean Corpuscular Hemoglobin Concent 33.4 % Red Cell Distribution Width 13.3 % Platelet Count 257 TH/MM3 Mean Platelet Volume 9.2 FL Neutrophils (%) (Auto) 65.7 % Lymphocytes (%) (Auto) 25.5 % Monocytes (%) (Auto) 6.5 % Eosinophils (%) (Auto) 1.5 % Basophils (%) (Auto) 0.8 % Neutrophils # (Auto) 4.3 TH/MM3 Lymphocytes # (Auto) 1.7 TH/MM3 Monocytes # (Auto) 0.4 TH/MM3 Eosinophils # (Auto) 0.1 TH/MM3 Basophils # (Auto) 0.0 TH/MM3 CBC Comment DIFF FINAL Differential Comment Vitals/IOs Vital Signs Date Time Temp Pulse Resp B/P (MAP) Pulse Ox O2 Delivery O2 Flow Rate FiO2 12/27/17 06:00 98.4 42 16 137/62 (87) 98 12/26/17 04:58 Room Air Intake and Output 12/27/17 12/27/17 12/28/17 08:00 16:00 00:00 Intake Total 720 ml Output Total 500 ml Balance 220 ml Assessment & Plan Problem List: (1) Schizoaffective disorder, bipolar type ICD Codes: F25.0 - Schizoaffective disorder, bipolar type Status: Acute Assessment & Plan: Continue current psychotropic regimen. Brief supportive psychotherapy, psychoeducation provided. Assessment & Plan Estimated LOS: days Justification for Cont. Inpt. Patient continues to be acutely delusional. Khadar Constantino MD December 27, 2017 15:50
[2017-12-27 18:39] VITALS: BP 102/59; PULSE 46; RESP 17; TEMP 97.4; O2SAT 98
[2017-12-28 06:20] VITALS: BP 100/47; PULSE 61; RESP 16; TEMP 97.6; O2SAT 97
[2017-12-28] MEDS: SODIUM CHLOR 0.9% 1000 ML INJ 1,000 ML IV SCH (07:30)
--- NOTE | 2017-12-28 08:46 | HHI.PYPN ---
Subjective Remarks This note serves as second opinion for involuntary psychiatric hospitalization. Patient seen and examined in weekend coverage. Chart reviewed. Case discussed with nursing staff. Patient reportedly remains delusional and believes that feces and urine is being stored up in her body, although the patient has been observed by staff both moving her bowels and passing urine. On my examination today, the patient is concrete with poor eye contact. She says that she is here for "the same thing as last time. The patient was admitted under my care in November of this year. Patient reports that her psychotropic medications were stopped as soon as she got back to [facility]. She tells me "I am doing the best I can with the problems I have." She continues to believe that urine and feces is being stored in her body, and in particular in her arms. There is no evidence of this being the case. She denies any suicidal or homicidal ideation but is psychotic and unpredictable. She denies any audiovisual hallucinations. Mood is irritable and affect is flat. She is asking for food. Past historical data essentially unchanged from my previous evaluation on 11/07. Denies side effects from medications. No physical complaints. Review of Systems ROS Limitations: Psychotic, Poor Historian Except as stated in HPI: all other systems reviewed are Neg Mental Status Examination Appearance: Appropriate Consciousness: Alert Orientation: x4 Motor Activity: Other (No motor abnormalities noted) Speech: Unremarkable Language: Adequate Fund of Knowledge: Adequate Attention and Concentration: Adequate Memory: Unremarkable Mood: Irritable Affect: Flat Thought Process & Associations: Other (Perseverates on delusional material) Thought Content: Bizarre thinking, Delusional Hallucination Type: None Delusion Type: Bizarre, Somatic Suicidal Ideation: No Suicidal Plan: No Suicidal Intention: No Homicidal Ideation: No Homicidal Plan: No Homicidal Intention: No Insight: Poor Judgment: Poor Results Labs Test 12/27/17 10:01 White Blood Count 6.5 TH/MM3 Red Blood Count 4.41 MIL/MM3 Hemoglobin 13.4 GM/DL Hematocrit 40.2 % Mean Corpuscular Volume 91.2 FL Mean Corpuscular Hemoglobin 30.4 PG Mean Corpuscular Hemoglobin Concent 33.4 % Red Cell Distribution Width 13.3 % Platelet Count 257 TH/MM3 Mean Platelet Volume 9.2 FL Neutrophils (%) (Auto) 65.7 % Lymphocytes (%) (Auto) 25.5 % Monocytes (%) (Auto) 6.5 % Eosinophils (%) (Auto) 1.5 % Basophils (%) (Auto) 0.8 % Neutrophils # (Auto) 4.3 TH/MM3 Lymphocytes # (Auto) 1.7 TH/MM3 Monocytes # (Auto) 0.4 TH/MM3 Eosinophils # (Auto) 0.1 TH/MM3 Basophils # (Auto) 0.0 TH/MM3 CBC Comment DIFF FINAL Differential Comment Labs reviewed. Decreased GFR noted. This is within patient's recent baseline. Vitals/IOs Vital Signs Date Time Temp Pulse Resp B/P (MAP) Pulse Ox O2 Delivery O2 Flow Rate FiO2 12/28/17 06:20 97.6 61 16 100/47 (64) 97 12/26/17 04:58 Room Air Intake and Output 12/28/17 12/28/17 12/29/17 08:00 16:00 00:00 Intake Total 0 ml Balance 0 ml Assessment & Plan Problem List: (1) Schizoaffective disorder, bipolar type ICD Codes: F25.0 - Schizoaffective disorder, bipolar type Status: Acute Assessment & Plan Given the circumstances of patient's presentation here and presentation on my examination today, I concur that the patient meets criteria for involuntary psychiatric hospitalization under the [place] act. I have completed the second opinion paperwork. I will titrate Abilify to 12.5 mg daily to target psychosis. Continue to monitor on the inpatient unit. Continue other medications and care as ordered. Justification for Cont. Inpt. Impairment in reality construction. Risk for decompensation in less restrictive environment. Discharge Planning Per primary psychiatrist Ottoniel Weber MD December 28, 2017 08:46
[2017-12-28] MEDS: ARIPiprazole 5 MG TAB PO SCH (10:29)
[2017-12-28] MEDS: DOCUSATE SODIUM 50 MG/SENNA 8.6 MG TAB PO SCH ×2 (10:29→21:19)
[2017-12-28] MEDS: NICOTINE 21 MG/24 HR PATCH T-DERMAL SCH (10:29)
[2017-12-28] MEDS: REMOVE OLD NICOTINE PATCH T-DERMAL SCH (10:29)
--- NOTE | 2017-12-28 13:21 | HHI.PR ---
Subjective Remarks Follow-up visit schizophrenia, mild ileus, urinary retention. Patient seen and examined today. Patient states she did go to the bathroom today. She appears to be very obsessive with bowel or bladder functions. She keeps on showing her arms and her legs that she is retaining fluid. Discussed with patient that is all her skin and there is no fluid in the retention of fluid. Dysphoric. Gets easily irritable. As per nursing, somatic behavior persistent, obsessed with BM and voiding. Voided 1500ml this am. Objective Vitals Vital Signs Date Time Temp Pulse Resp B/P (MAP) Pulse Ox O2 Delivery O2 Flow Rate FiO2 12/28/17 06:20 97.6 61 16 100/47 (64) 97 12/27/17 18:39 97.4 46 17 102/59 (73) 98 I/O 12/27/17 12/27/17 12/27/17 12/28/17 12/28/17 12/28/17 07:00 15:00 23:00 07:00 15:00 23:00 Intake Total 720 ml 4200 ml 0 ml Output Total 500 ml Balance 220 ml 4200 ml 0 ml Intake Oral 720 ml 4200 ml 0 ml Output Urine Total 500 ml # Voids 1 2 3 # Bowel Movements 2 Result Diagram: 12/27/17 1001 12/27/17 0600 Objective Remarks GENERAL: This is a well-nourished, well-developed patient, in no apparent distress. SKIN: Warm and dry HEENT: Normocephalic. Pupils equal round and reactive. Nose without bleeding. Airway patent. NECK: Trachea midline. CARDIOVASCULAR: Regular rate and rhythm without murmurs, gallops, or rubs. RESPIRATORY: Clear to auscultation. Breath sounds equal bilaterally. No wheezes , rales, or rhonchi. GASTROINTESTINAL: Abdomen soft, non-tender, nondistended. Bowel Sounds normoactive x4. MUSCULOSKELETAL: Extremities without clubbing, cyanosis, or edema. NEUROLOGICAL: Awake and alert. Oriented to place, person. Moves all extremities. Normal speech. Easily irritable. A/P Problem List: (1) Schizoaffective disorder, bipolar type ICD Code: F25.0 - Schizoaffective disorder, bipolar type Status: Acute (2) Chronic constipation Status: Chronic Assessment and Plan Patient is a 62-year-old female with history of schizophrenia who came to the ED under expiratory order for psychiatric evaluation. Per review of records patient is unable to care for herself. She is now admitted to medical psychiatric unit for further evaluation. Consulted for assistance with medical management. Schizophrenia, bipolar disorder -Managed by psychiatry team Mild ileus -Abdominal x-ray 12/25 showed mild ileus -Encourage p.o. hydration -Continue laxatives -Had BM x2 yesterday but is very obsessive about having BM. -Abdomen is benign on exam. No reports of nausea or vomiting. Patient appears with somatic complaints. Urinary retention -UA negative -Bladder scan as needed -Voiding spontaneously Seizure disorder? -Seizure precaution -Not been any seizure medication -on Abilify, lithium Bradycardia, asymptomatic -No treatment indicated. This is been diagnosed on previous admission DVT prop early ambulation Stable from Hospitalist standpoint. We will sign off. Reconsult as needed. Marva Walker December 28, 2017 13:21
[2017-12-28 14:05] LABS: HEMOGLOBIN A1C 5.3 % (4.3-6.0)
[2017-12-28 18:06] VITALS: BP 94/42; PULSE 51; RESP 16; TEMP 98.1; O2SAT 97
[2017-12-29 06:33] VITALS: BP 88/53; PULSE 55; RESP 14; TEMP 99.2; O2SAT 99
[2017-12-29] MEDS: DOCUSATE SODIUM 50 MG/SENNA 8.6 MG TAB PO SCH ×2 (08:00→20:47)
[2017-12-29] MEDS: ARIPiprazole 5 MG TAB PO SCH (08:00)
[2017-12-29] MEDS: REMOVE OLD NICOTINE PATCH T-DERMAL SCH (08:01)
[2017-12-29] MEDS: NICOTINE 21 MG/24 HR PATCH T-DERMAL SCH (08:02)
--- NOTE | 2017-12-29 14:53 | HHI.PYPN ---
Subjective Remarks Reviewed electronic medical record and discussed case with staff. Staff reports that patient has been eating, urinating, and passing stool. Follow-up was conducted in patient's room. Patient was found lying in the bed. She states that she "does really sleep I just rest." She reports that her appetite has been "on and off" but relates that it is probably more due to the food selection. She denies any side effects and remains entrenched in her delusion that something is wrong with her digestive tract. Mental Status Examination Appearance: Appropriate Consciousness: Alert Orientation: x4 Motor Activity: Other (No motor abnormalities noted) Speech: Unremarkable Language: Adequate Fund of Knowledge: Adequate Attention and Concentration: Adequate Memory: Unremarkable Mood: Irritable Affect: Flat Thought Process & Associations: Other (Perseverates on delusional material) Thought Content: Bizarre thinking, Delusional Hallucination Type: None Delusion Type: Bizarre, Somatic Suicidal Ideation: No Suicidal Plan: No Suicidal Intention: No Homicidal Ideation: No Homicidal Plan: No Homicidal Intention: No Insight: Poor Judgment: Poor Results Vitals/IOs Vital Signs Date Time Temp Pulse Resp B/P (MAP) Pulse Ox O2 Delivery O2 Flow Rate FiO2 12/29/17 06:33 99.2 55 14 88/53 (65) 99 12/26/17 04:58 Room Air Intake and Output 12/29/17 12/29/17 12/29/17 07:59 15:59 23:59 Intake Total 480 ml Balance 480 ml Assessment & Plan Problem List: (1) Schizoaffective disorder, bipolar type ICD Codes: F25.0 - Schizoaffective disorder, bipolar type Status: Acute Assessment & Plan Estimated LOS: Continue with treatment plan as ordered. Patient will be reevaluated by her attending psychiatrist tomorrow. Days Justification for Cont. Inpt. Review this patient to a lower level of care would likely result in decompensation. Donna Sumner December 29, 2017 14:53
[2017-12-29 18:15] VITALS: BP 96/48; PULSE 51; RESP 15; TEMP 96.3; O2SAT 96
[2017-12-29] MEDS: LORazepam 1 MG TAB PO PRN (20:48)
[2017-12-30 06:00] VITALS: BP 91/48; PULSE 53; RESP 15; TEMP 98.5; O2SAT 97
[2017-12-30] MEDS: DOCUSATE SODIUM 50 MG/SENNA 8.6 MG TAB PO SCH ×2 (08:38→20:53)
[2017-12-30] MEDS: ARIPiprazole 5 MG TAB PO SCH (08:38)
[2017-12-30] MEDS: NICOTINE 21 MG/24 HR PATCH T-DERMAL SCH (08:40)
[2017-12-30] MEDS: REMOVE OLD NICOTINE PATCH T-DERMAL SCH (08:40)
--- NOTE | 2017-12-30 09:09 | HHI.PYPN ---
Subjective Remarks Patient seen for follow, chart reviewed. Discussion nursing staff reported the patient complains about constipation of the patient has been having bowel movements regularly. Patient was found speaking with nurse, states that she has had difficulty with sleep lately but has not requested any as needed's for insomnia. She reports she has been having bowel movements but noted to be somewhat preservative on having been constipated recently but did admit to having bowel movement now. Patient complains of having had an accident this morning where she had soiled herself and stated that she wash her pajamas after "the accident". Patient focused on medications for constipation such as not wanting to continue stool softener but asking for laxative. He reports good appetite, reports her mood as "I like to take a shower", denies any perceptual disturbances. Patient is alert and oriented 3. Review of Systems Except as stated in HPI: all other systems reviewed are Neg Mental Status Examination Appearance: Appropriate Consciousness: Alert Orientation: x4 Motor Activity: Other (No motor abnormalities noted) Speech: Unremarkable Language: Adequate Fund of Knowledge: Adequate Attention and Concentration: Adequate Memory: Unremarkable Mood: Irritable Affect: Flat Thought Process & Associations: Other (Perseverates on delusional material) Thought Content: Bizarre thinking, Delusional Hallucination Type: None Delusion Type: Bizarre, Somatic Suicidal Ideation: No Suicidal Plan: No Suicidal Intention: No Homicidal Ideation: No Homicidal Plan: No Homicidal Intention: No Insight: Poor Judgment: Poor Results Vitals/IOs Vital Signs Date Time Temp Pulse Resp B/P (MAP) Pulse Ox O2 Delivery O2 Flow Rate FiO2 12/30/17 06:00 98.5 53 15 91/48 (62) 97 Intake and Output 12/30/17 12/30/17 12/31/17 08:00 16:00 00:00 Intake Total 360 ml Balance 360 ml Assessment & Plan Problem List: (1) Schizoaffective disorder, bipolar type ICD Codes: F25.0 - Schizoaffective disorder, bipolar type Status: Acute Assessment & Plan Patient continues to have perseveration on bowel movements but did not explicitly endorse delusion that feces and urine are being stirred up in her body. Patient is having bowel movements but she recognizes but prefers her to be more regular. We will increase Abilify to 15 mg p.o. daily for psychosis and delusions, we will change diphenhydramine from as needed to scheduled to assist with sleep disturbance. Continue to monitor mood and behavior. Discharge planning in progress. Justification for Cont. Inpt. At risk of further decompensation at lower level of care. Parag Santiago MD December 30, 2017 09:09
[2017-12-30 18:27] VITALS: BP 98/44; PULSE 59; RESP 16; TEMP 97.2; O2SAT 100
[2017-12-30] MEDS: diphenhydrAMINE HCL 50 MG CAP PO SCH (20:53)
[2017-12-31 05:53] VITALS: BP 101/50; PULSE 50; RESP 17; TEMP 97.8; O2SAT 98
[2017-12-31] MEDS: REMOVE OLD NICOTINE PATCH T-DERMAL SCH (09:00)
[2017-12-31] MEDS: NICOTINE 21 MG/24 HR PATCH T-DERMAL SCH (09:00)
--- NOTE | 2017-12-31 09:56 | HHI.PYPN ---
Subjective Remarks Patient seen for follow, chart reviewed. Discussion nursing staff reported the patient compliant with medications slept well last evening. Patient states that she has been feeling "no better" referring to her "digestive functions" but reports having daily bowel movement along with having daily episodes of passing gas. Patient was encouraged to continue with good appetite she states that she is hungry all the time and was reassured that the longest patient has having daily bowel movements that she is not accumulating which she seem to acknowledge. She denies any suicidal homicidal ideations. Denies any auditory or visual hallucinations, continue with mildly persisting delusions of gastrointestinal dysfunction. Review of Systems Except as stated in HPI: all other systems reviewed are Neg Mental Status Examination Appearance: Appropriate Consciousness: Alert Orientation: x4 Motor Activity: Other (No motor abnormalities noted) Speech: Unremarkable Language: Adequate Fund of Knowledge: Adequate Attention and Concentration: Adequate Memory: Unremarkable Mood: Irritable Affect: Flat Thought Process & Associations: Other (Perseverates on delusional material) Thought Content: Bizarre thinking, Preoccupations (With digestive functions), Delusional Hallucination Type: None Delusion Type: Bizarre, Somatic Suicidal Ideation: No Suicidal Plan: No Suicidal Intention: No Homicidal Ideation: No Homicidal Plan: No Homicidal Intention: No Insight: Poor Judgment: Poor Results Vitals/IOs Vital Signs Date Time Temp Pulse Resp B/P (MAP) Pulse Ox O2 Delivery O2 Flow Rate FiO2 12/31/17 05:53 97.8 50 17 101/50 (67) 98 Intake and Output 12/31/17 12/31/17 01/01/18 08:00 16:00 00:00 Intake Total 720 ml Balance 720 ml Assessment & Plan Problem List: (1) Schizoaffective disorder, bipolar type ICD Codes: F25.0 - Schizoaffective disorder, bipolar type Status: Acute Assessment & Plan Patient appears to have lessening of this delusion, noted to be able to care for self on the unit with adequate hygiene and eating and drinking well along with regular bowel movement. We will continue current treatment as patient appears to responding well to it. Continue to monitor mood and behavior. Patient for possible discharge tomorrow back to her assisted living facility. Justification for Cont. Inpt. At risk of further decompensation a lower level of care. Discharge Planning Patient return back to her [facility]. Parag Santiago MD December 31, 2017 09:56
[2017-12-31] MEDS: DOCUSATE SODIUM 50 MG/SENNA 8.6 MG TAB PO SCH ×2 (10:15→21:00)
[2017-12-31] MEDS: ARIPiprazole 5 MG TAB PO SCH (10:15)
[2017-12-31 18:00] VITALS: BP 93/42; PULSE 60; RESP 17; TEMP 98.1; O2SAT 96
[2017-12-31] MEDS: diphenhydrAMINE HCL 50 MG CAP PO SCH (21:00)
[2018-01-01 05:55] VITALS: BP 100/51; PULSE 51; RESP 17; TEMP 97.8; O2SAT 98
[2018-01-01] MEDS: DOCUSATE SODIUM 50 MG/SENNA 8.6 MG TAB PO SCH ×2 (08:55→21:10)
[2018-01-01] MEDS: ARIPiprazole 5 MG TAB PO SCH (08:56)
[2018-01-01] MEDS: NICOTINE 21 MG/24 HR PATCH T-DERMAL SCH (09:00)
[2018-01-01] MEDS: REMOVE OLD NICOTINE PATCH T-DERMAL SCH (09:00)
--- NOTE | 2018-01-01 15:52 | HHI.PYPN ---
Subjective Remarks Patient seen for follow, chart reviewed. Discussion nursing staff reported the patient slept, no behavioral issues continue to be somewhat perseverative on her bowels. Patient was found lying hospital bed noted B, cooperative. Patient states that she had been sleeping well, reports her mood has been "good " continues to be worried and perseverative about her bowel movement stated that she has not having enough stool when she goes to the restroom although reports going daily. Patient states her appetite is well, denying any perceptional disturbances at this time. Patient reports tolerating medication well and denying any adverse drug reactions. Patient agrees to return back to her residential facility. Review of Systems Except as stated in HPI: all other systems reviewed are Neg Mental Status Examination Appearance: Appropriate Consciousness: Alert Orientation: x4 Motor Activity: Other (No motor abnormalities noted) Speech: Unremarkable Language: Adequate Fund of Knowledge: Adequate Attention and Concentration: Adequate Memory: Unremarkable Mood: Irritable Affect: Flat Thought Process & Associations: Other (Perseverates on delusional material) Thought Content: Bizarre thinking, Preoccupations (With digestive functions), Delusional Hallucination Type: None Delusion Type: Bizarre, Somatic Suicidal Ideation: No Suicidal Plan: No Suicidal Intention: No Homicidal Ideation: No Homicidal Plan: No Homicidal Intention: No Insight: Poor Judgment: Poor Results Vitals/IOs Vital Signs Date Time Temp Pulse Resp B/P (MAP) Pulse Ox O2 Delivery O2 Flow Rate FiO2 01/01/18 05:55 97.8 51 17 100/51 (67) 98 Intake and Output 01/01/18 01/01/18 01/02/18 08:00 16:00 00:00 Intake Total 600 ml Balance 600 ml Assessment & Plan Problem List: (1) Schizoaffective disorder, bipolar type ICD Codes: F25.0 - Schizoaffective disorder, bipolar type Status: Acute Assessment & Plan Patient this time continues with bizarre somatic delusions of not having adequate bowel movements although patient is having daily bowel movements and adequate appetite. Patient was similar delusions upon last hospitalization which may point to delusions that may be fixed but noted to be less intense now with treatment. Patient this time is improving her self-care and participating in treatment but noted to be mostly isolative. We will attempt to have patient participate more groups and activities and out of bed more. We will increase Abilify to 20 mg p.o. daily for psychosis. Continue to monitor mood and behavior. Discharge planning in progress. Justification for Cont. Inpt. At risk of further decompensation at lower level of care. Discharge Planning Patient to [facility]. Parag Santiago MD January 01, 2018 15:52
[2018-01-01 18:14] VITALS: BP 97/46; PULSE 60; RESP 16; TEMP 97.9; O2SAT 98
[2018-01-01] MEDS: diphenhydrAMINE HCL 50 MG CAP PO SCH (21:09)
[2018-01-02 04:37] VITALS: BP 97/52; PULSE 48; RESP 16; TEMP 98.9; O2SAT 98
[2018-01-02] MEDS: DOCUSATE SODIUM 50 MG/SENNA 8.6 MG TAB PO SCH ×2 (10:36→21:25)
[2018-01-02] MEDS: REMOVE OLD NICOTINE PATCH T-DERMAL SCH (10:40)
[2018-01-02] MEDS: NICOTINE 21 MG/24 HR PATCH T-DERMAL SCH (10:42)
--- NOTE | 2018-01-02 18:15 | HHI.PYPN ---
Subjective Remarks Patient seen for follow-up, chart reviewed. Discussion with nursing staff reported that the patient continues with perseveration of her bowel movements. Patient was found lying on hospital bed, noted to be cooperative. She states that she slept "on and off", mood has been "not good" as she continues to perseverate on not having an adequate bowel movement despite reporting having recently had a bowel movement daily despite small amount. She reports having episodes of passing gas and continues with adequate appetite. She agrees to attend groups today. Review of Systems Except as stated in HPI: all other systems reviewed are Neg Mental Status Examination Appearance: Appropriate Consciousness: Alert Orientation: x4 Motor Activity: Other (No motor abnormalities noted) Speech: Unremarkable Language: Adequate Fund of Knowledge: Adequate Attention and Concentration: Adequate Memory: Unremarkable Mood: Irritable Affect: Flat Thought Process & Associations: Other (Perseverates on delusional material) Thought Content: Bizarre thinking, Preoccupations (With digestive functions), Delusional Hallucination Type: None Delusion Type: Bizarre, Somatic Suicidal Ideation: No Suicidal Plan: No Suicidal Intention: No Homicidal Ideation: No Homicidal Plan: No Homicidal Intention: No Insight: Poor Judgment: Poor Results Vitals/IOs Vital Signs Date Time Temp Pulse Resp B/P (MAP) Pulse Ox O2 Delivery O2 Flow Rate FiO2 01/02/18 04:37 98.9 48 16 97/52 (67) 98 Intake and Output 01/02/18 01/02/18 01/03/18 08:00 16:00 00:00 Intake Total 240 ml 720 ml 120 ml Balance 240 ml 720 ml 120 ml Assessment & Plan Problem List: (1) Schizoaffective disorder, bipolar type ICD Codes: F25.0 - Schizoaffective disorder, bipolar type Status: Acute Assessment & Plan Patient continues with perseveration of bowel movements which is lessening but no longer stating that food is accumulating in her body. Continue current treatment, continue to monitor mood and behavior. Encourage patient to be less seclusive and participate in groups. Discharge planning in progress. Justification for Cont. Inpt. At risk for further decompensation at lower level of care. Discharge Planning Return back to her [facility]. Parag Santiago MD Jan 02, 2018 18:15
[2018-01-02 18:32] VITALS: BP 96/46; PULSE 63; RESP 16; TEMP 97.6; O2SAT 97
[2018-01-02] MEDS: diphenhydrAMINE HCL 50 MG CAP PO SCH (21:25)
[2018-01-03 04:34] VITALS: BP 92/42; PULSE 51; RESP 15; TEMP 98.7; O2SAT 96
[2018-01-03] MEDS: DOCUSATE SODIUM 50 MG/SENNA 8.6 MG TAB PO SCH ×2 (08:33→20:45)
[2018-01-03] MEDS: REMOVE OLD NICOTINE PATCH T-DERMAL SCH (09:00)
[2018-01-03] MEDS: NICOTINE 21 MG/24 HR PATCH T-DERMAL SCH (09:00)
--- NOTE | 2018-01-03 17:17 | HHI.PYPN ---
Subjective Remarks Patient seen in her room with floor staff, chart reviewed, patient compliant medication, patient discussed with nurse. Patient did not recognize me from prior visits. He said I was not a doctor. She continued to focus on her bowel movements or lack of same. Though she says her appetite is good. For now continue treatment Review of Systems Except as stated in HPI: all other systems reviewed are Neg Mental Status Examination Appearance: Appropriate Consciousness: Alert Orientation: x4 Motor Activity: Other (No motor abnormalities noted) Speech: Unremarkable Language: Adequate Fund of Knowledge: Adequate Attention and Concentration: Adequate Memory: Unremarkable Mood: Irritable Affect: Flat Thought Process & Associations: Other (Perseverates on delusional material) Thought Content: Bizarre thinking, Preoccupations (With digestive functions), Delusional Hallucination Type: None Delusion Type: Bizarre, Somatic Suicidal Ideation: No Suicidal Plan: No Suicidal Intention: No Homicidal Ideation: No Homicidal Plan: No Homicidal Intention: No Insight: Poor Judgment: Poor Results Vitals/IOs Vital Signs Date Time Temp Pulse Resp B/P (MAP) Pulse Ox O2 Delivery O2 Flow Rate FiO2 01/03/18 04:34 98.7 51 15 92/42 (59) 96 Intake and Output 01/03/18 01/03/18 01/04/18 08:00 16:00 00:00 Intake Total 600 ml 960 ml Balance 600 ml 960 ml Assessment & Plan Problem List: (1) Schizoaffective disorder, bipolar type ICD Codes: F25.0 - Schizoaffective disorder, bipolar type Status: Acute Assessment & Plan Estimated LOS: days she continues quite psychotic delusional. Focusing on her bowel habits. For now continue treatment Justification for Cont. Inpt. At this time patient would decompensate a place to the lower level of care Discharge Planning Be determined Preston Cuellar MD Jan 03, 2018 17:17
[2018-01-03 18:06] VITALS: BP 96/46; PULSE 59; RESP 15; TEMP 97.8; O2SAT 96
[2018-01-03] MEDS: diphenhydrAMINE HCL 50 MG CAP PO SCH (20:45)
[2018-01-04 05:24] VITALS: BP 82/41; PULSE 50; RESP 15; TEMP 97.5; O2SAT 99
[2018-01-04] MEDS: DOCUSATE SODIUM 50 MG/SENNA 8.6 MG TAB PO SCH ×2 (08:53→20:26)
[2018-01-04] MEDS: NICOTINE 21 MG/24 HR PATCH T-DERMAL SCH (09:00)
[2018-01-04] MEDS: REMOVE OLD NICOTINE PATCH T-DERMAL SCH (09:00)
--- NOTE | 2018-01-04 10:42 | HHI.PYPN ---
Subjective Remarks Patient seen in her room with nurse Monty, chart reviewed, patient compliant medication. Patient is clean and neat this morning while it appears she is having small bowel movements she still feels things are backing up into her skin and bloodstream. That people are aware of it. She denies any voices, denies suicidality at this time Review of Systems Except as stated in HPI: all other systems reviewed are Neg Mental Status Examination Appearance: Appropriate Consciousness: Alert Orientation: x4 Motor Activity: Other (No motor abnormalities noted) Speech: Unremarkable Language: Adequate Fund of Knowledge: Adequate Attention and Concentration: Adequate Memory: Unremarkable Mood: Irritable Affect: Flat Thought Process & Associations: Other (Perseverates on delusional material) Thought Content: Bizarre thinking, Preoccupations (With digestive functions), Delusional Hallucination Type: None Delusion Type: Bizarre, Somatic Suicidal Ideation: No Suicidal Plan: No Suicidal Intention: No Homicidal Ideation: No Homicidal Plan: No Homicidal Intention: No Insight: Poor Judgment: Poor Results Vitals/IOs Vital Signs Date Time Temp Pulse Resp B/P (MAP) Pulse Ox O2 Delivery O2 Flow Rate FiO2 01/04/18 05:24 97.5 50 15 82/41 (55) 99 Assessment & Plan Problem List: (1) Schizoaffective disorder, bipolar type ICD Codes: F25.0 - Schizoaffective disorder, bipolar type Status: Acute Assessment & Plan Estimated LOS: days patient continues psychotic and delusional, though she is compliant medication, her affect is improving Justification for Cont. Inpt. At this time patient would decompensate a place to the lower level of care Discharge Planning Possible return to her prior placement Preston Cuellar MD Jan 04, 2018 10:42
[2018-01-04 17:34] VITALS: BP 96/59; PULSE 56; RESP 15; TEMP 97.6; O2SAT 15
[2018-01-04] MEDS: diphenhydrAMINE HCL 50 MG CAP PO SCH (20:26)
[2018-01-05 06:06] VITALS: BP 81/39; PULSE 48; RESP 15; TEMP 98.9; O2SAT 99
[2018-01-05] MEDS: REMOVE OLD NICOTINE PATCH T-DERMAL SCH (09:00)
[2018-01-05] MEDS: NICOTINE 21 MG/24 HR PATCH T-DERMAL SCH (09:00)
--- NOTE | 2018-01-05 10:16 | PD.TTN ---
Patient Problems 1. Discharge planning 2. Medication compliance 3. Knowledge deficit 4. Lack of coping skills Progress Toward Goals Provider Present: Dr. Dequan Santiago Provider Input: Pt scheduled for discharge today, expectation is for pt to return to her previous location. Psych Therapist Input: abel; to confer with Rachle to finalize discharge. Group Spec/RT/OT/LAW Present: Deepali Lake OT Group Spec/RT/OT/LAW Input: Pt has been attending select groups, requiring significant external motivation Discharge Plan pt to return to previous facility Documentation Scribe: deepali lake ms, otr Deepali Lake OTR Jan 05, 2018 10:16
[2018-01-05] MEDS ORDERED: PERI PO (10:31)
[2018-01-05] MEDS ORDERED: ARIP1TAB14 PO (10:31)
[2018-01-05] MEDS ORDERED: DIPH50CA PO (10:31)
[2018-01-05] MEDS: DOCUSATE SODIUM 50 MG/SENNA 8.6 MG TAB PO SCH (11:11)
--- NOTE | 2018-01-05 15:59 | HHI.DS ---
Psychiatry Discharge Summary Inpatient Psychiatric care?: Yes Advance Directive: No Reason Not Provided: EDUCATION PROVIDED Mental Health AdvanceDirective: No Health Care Proxy: No Admission Admission Date December 26, 2017 at 08:11 Admission Diagnosis: (1) Schizoaffective disorder, bipolar type ICD Code: F25.0 - Schizoaffective disorder, bipolar type Brief History The patient is 62-year-old woman, domiciled in [facility] in [facility], single, unemployed, supported by [facility], mother of a 33 years old daughter, with psychiatric history of schizophrenia, schizoaffective disorder, multiple psychiatric admissions, the last psychiatric admission was here in [place] in November 2017 under the care of Dr. Weber, documentation review, she has a FACT TEAM, outpatient psychiatric care with Dr. Wan , she is on Abilify 15 mg daily, she has history of ECT , no significant medical history, who presents to the ED under exparte order for psychiatric evaluation. Patient is unable to care for herself. I discussed this with her. Patient denies suicidal ideation but she states "I just want my suffering to be over." She complains of chronic constipation and back pain, but has no other somatic complaints. She was discharged from the ED earlier this morning. Chart reviewed. Case discussed with nursing staff. On psychiatric evaluation today the patient presents as irritable, at the beginning oppositional and resistant. She reports that she is here due to gastric problems, "I am not digesting my food. My food is not going to my stomach and I am not defecating and urinating " She believes that food is being stored in her muscles and in her arms. She believes these areas of her body are filled with "hard, undigested food." She does pass flatus during the interview. She is in denial about reported weight loss. When asked about SI/HI, she replies "I'd like this suffering to be over with." No reported urge to hurt herself on the inpatient unit. Affect is dysphoric and irritable. She is psychomotor agitated and paces during the interview. She is somewhat disinhibited and disrobes in order to show me the food she feels is collecting in her abdomen. In contradiction to what the patient is complaining, she has been asking for breakfast stating that she is very hungry. Denies the use of illegal drugs and alcohol. Tobacco Use In Past 30 Days: No Tobacco Past 30 Days Alcohol Use: Never Hospital Course The patient is 62-year-old woman, domiciled in [facility] in [facility], single, unemployed, supported by [facility], mother of a 33 years old daughter, with psychiatric history of schizophrenia, schizoaffective disorder, multiple psychiatric admissions, the last psychiatric admission was here in [place] in November 2017 under the care of Dr. Weber, documentation review, she has a FACT TEAM, outpatient psychiatric care with Dr. aWn , she is on Abilify 15 mg daily, she has history of ECT , no significant medical history, who presents to the ED under exparte order for psychiatric evaluation. Patient was restarted on Abilify and titrated to 20mg PO daily which she responded well to with no reported adverse drug reactions. Patient noted throughout admission to continue to endorse this somatic delusion of food depositing into her arms and other parts of her body which lessened with treatment but likely a fixed delusions. Despite persistence of this delusion patient was noted to have adequate nutritional intake, had adequate movement of bowels and with no signs of obstruction. Patient also noted to be appropriate with staff, adequately care of her personal hygiene and caring for self. She responded well to treatment, was noted to be cooperative with staff, no behavioral dyscontrol during admission and was noted to have stable mood. Upon discharge patient reported feeling good denied any perceptual disturbances nor suicidal ideations or homicidal ideations. Patient agreed to continue treatment and follow up appointments for continuity of care. Patient agreed to return back to her assisted living facility. Patient advised to call 911 or go nearest ED in case of emergency. Patient agreed with plan. Results Blood Pressure 81 / 39 Vital Signs Date Time Temp Pulse Resp B/P (MAP) Pulse Ox O2 Delivery O2 Flow Rate FiO2 01/05/18 06:06 98.9 48 15 81/39 (53) 99 Laboratory Results Test 12/26/17 14:33 12/27/17 06:00 [place] Level LESS THAN 0.1 MEQ/L Cholesterol Level 174 MG/DL (120-200) HDL Cholesterol 51.5 MG/DL (40.0-60.0) Hemoglobin A1c 5.3 % (4.3-6.0) LDL Cholesterol 114 MG/DL (0-99) Triglycerides Level 45 MG/DL (42-150) Summary of Procedures none Pending results at discharge: No Medications # of Antipsychotic meds at D/C: 1 Approp Antipsych med options 1 - Minimum of three failed multiple trials of monotherapy. 2 - Documented plan to taper to monotherapy due to previous use of multiple meds OR cross-taper in progress at D/C. 3 - Documentation of augmentation of Clozapine. 4 - Justification other than those listed in allowable values 1-3, document here : Discharge Discharge Date: Jan 05, 2018 Discharge Diagnosis: (1) Schizoaffective disorder, bipolar type ICD Code: F25.0 - Schizoaffective disorder, bipolar type Status: Acute Pt Condition on Discharge: Stable Discharge Disposition: Discharge Home Discharge Instructions Diet Instructions: Heart Healthy Diet Activities you can perform: Weight Bearing as Francie Scheduled Appointment: Chris Gomez Appointment Date: Jan 06, 2018 Discharge Time > 30 minutes Mental Status Examination Appearance: Appropriate Consciousness: Alert Orientation: x4 Motor Activity: Other (No motor abnormalities noted) Speech: Unremarkable Language: Adequate Fund of Knowledge: Adequate Attention and Concentration: Adequate Memory: Unremarkable Mood: Irritable Affect: Appropriate Thought Process & Associations: Other (Perseverates on delusional material) Thought Content: Delusional (fixed somatic) Hallucination Type: None Delusion Type: Somatic Suicidal Ideation: No Suicidal Plan: No Suicidal Intention: No Homicidal Ideation: No Homicidal Plan: No Homicidal Intention: No Insight: Poor Judgment: Impulsive Discharge/Advance Care Plan Health Problems: (1) Schizoaffective disorder, bipolar type Goals to promote your health * To prevent worsening of your condition and complications * To maintain your health at the optimal level Directions to meet your goals Take your medications as prescribed Follow your dietary instruction Follow activity as directed Keep your appointments as scheduled Take your immunizations and boosters as scheduled If your symptoms worsen call your PCP, if no PCP go to Urgent Care Center or Emergency Room For 24 questions related to your inpatient stay or results of tests pending at discharge, please contact Dr. Parag Santiago at Smoking is Dangerous to Your Health. Avoid second hand smoking Parag Santiago MD Jan 05, 2018 15:59
== END 2018-01-05 12:55 | disposition home or self-care (01) | DRG 885 ==
LOC: NEDAMB 15:37 → NEDA 12-26 08:11 → H4EA 12-26 09:30
PROVIDERS: ADMIT Student in an Organized Health Care Education/Training Program; ATTEND Student in an Organized Health Care Education/Training Program
DX: F25.0 Schizoaffective disorder, bipolar type (principal); R00.1 Bradycardia, unspecified; K56.7 Ileus, unspecified; F50.9 Eating disorder, unspecified; E55.9 Vitamin D deficiency, unspecified; Z91.14 Patient's other noncompliance with medication regimen; F17.210 Nicotine dependence, cigarettes, uncomplicated; E78.5 Hyperlipidemia, unspecified; M19.90 Unspecified osteoarthritis, unspecified site; R33.9 Retention of urine, unspecified
CPT/HCPCS: 80048; 80061; 80178; 81001; 83036; 85025; 99285; J7030; Q0163

== ENCOUNTER 2018-01-11 10:20 | Inpatient (IN) | payer MEDICARE, OTHER ==
[~2018-01-11 10:20] MED LIST changes: +DIPH50CA PO; -FLEE5TAB PO; +IBUP1TAB7 PO; -MIRA3350 PO
[2018-01-11 10:35] VITALS: BP 105/53; PULSE 76; TEMP 97.8; O2SAT 99
--- NOTE | 2018-01-11 10:41 | PD ---
HPI Chief Complaint: Psychiatric Symptoms Time Seen by Provider: 10:39 Travel History International Travel<30 days: No Contact w/Intl Traveler<30days: No Traveled to known affect area: No History of Present Illness HPI 62-year-old female with history of schizophrenia presents emergency department under [place] act for psychiatric evaluation. Patient walked to the beach, and her bathrobe. She has been contemplating suicide. She tells me that "you would too if you felt like me." She tells me she is tired of suffering. She states she has been taking her medication as prescribed. She denies any acute medical needs at this time. PFSH Past Medical History Hx Anticoagulant Therapy: No Arthritis: No Asthma: No Autoimmune Disease: No Blood Disorders: No Bipolar Disorder: Yes Anxiety: Yes Depression: Yes Heart Rhythm Problems: No Cancer: No Cardiovascular Problems: No High Cholesterol: No Chemotherapy: No Chest Pain: No Congestive Heart Failure: No COPD: No Cerebrovascular Accident: No Diabetes: No Diminished Hearing: No Endocrine: No Gastrointestinal Disorders: Yes GERD: No Genitourinary: No Headaches: Yes Hepatitis: No Hiatal Hernia: No Hypertension: No Immune Disorder: No Kidney Stones: No Musculoskeletal: No Neurologic: Yes Psychiatric: Yes Reproductive: No Respiratory: No Immunizations Current: No Migraines: No Myocardial Infarction: No Radiation Therapy: No Renal Failure: No Schizophrenia: Yes Seizures: Yes Sickle Cell Disease: No Sleep Apnea: No Thyroid Disease: No Ulcer: No ?: Not Menopausal: Yes : 1 Para: 1 Miscarriage: 0 : 2 Ectopic : No Ovarian Cysts: No Dilation and Curettage (D&C): No Tubal Ligation: No Past Surgical History Abdominal Surgery: No AICD: No Appendectomy: No Arteriovenous Shunt: No Cardiac Surgery: No Section: No Cholecystectomy: No Ear Surgery: No Endocrine Surgery: No Eye Surgery: No Genitourinary Surgery: No Gynecologic Surgery: No Hysterectomy: No Insulin Pump: No Joint Replacement: No Neurologic Surgery: No Oral Surgery: Yes (TONSILLECTOMY CHILD) Pacemaker: No Thoracic Surgery: No Other Surgery: Yes (TONSILS REMOVED A CHILD) Social History Alcohol Use: No Tobacco Use: No Substance Use: No Allergies-Medications (Allergen,Severity, Reaction): Coded Allergies: chlorpromazine (Unverified Allergy, Severe, SWOLLEN TONGUE, 12/26/17) codeine (Unverified Allergy, Severe, 01/11/18) Per MAR sent by [facility]. divalproex sodium (Unverified Allergy, Severe, SWOLLEN TONGUE, 01/11/18) Per MAR sent by [facility]. haloperidol (Unverified Allergy, Severe, 01/11/18) Per MAR sent by [facility]. thioridazine (Unverified Allergy, Severe, SWOLLEN TONGUE, 12/26/17) thiothixene (Unverified Allergy, Severe, 12/26/17) Reported Meds & Prescriptions Reported Meds & Active Scripts Active Gnp Senna Plus 8.6-50 mg (Sennosides-Docusate Sodium) 8.6 Mg-50 Mg Tab 2 Tab PO BID 15 Days Diphenhydramine HCl 50 Mg Cap 50 Mg PO HS 30 Days Aripiprazole 20 Mg Tab 20 Mg PO DAILY 30 Days [Albuterol Hfa Inh] 60 PUFF/8 GM Aero 2 Puff INH BID 30 Days Reported [Boost Liquid] 1 Can PO DAILY Bisacodyl EC (Bisacodyl) 5 Mg Tabec 5 Mg PO HS Diphenhydramine HCl 25 Mg Tablet 1 Cap PO HS Ventolin Hfa 18 GM Inh (Albuterol Sulfate) 90 Mcg/Act Aer 2 Puff INH BID PRN [Multivitamin ] 1 Tab PO DAILY Ibuprofen 800 Mg Tab 800 Mg PO DAILY PRN Vitamin D-1000 (Cholecalciferol) 1,000 Unit Tab 1,000 Units PO DAILY Multi-Vitamin Daily (Multiple Vitamin) 1 Tab Tab 1 Tab PO DAILY Review of Systems Except as stated in HPI: all other systems reviewed are Neg Physical Exam Narrative GENERAL: Thin female patient, ambulatory but appears in no acute distress. SKIN: Focused skin assessment warm/dry. HEAD: Atraumatic. Normocephalic. EYES: Pupils equal and round. No scleral icterus. No injection or drainage. ENT: No nasal bleeding or discharge. Mucous membranes pink and moist. NECK: Trachea midline. No JVD. CARDIOVASCULAR: Regular rate and rhythm. No murmur appreciated. RESPIRATORY: No accessory muscle use. Clear to auscultation. Breath sounds equal bilaterally. GASTROINTESTINAL: Abdomen soft, non-tender, nondistended. Hepatic and splenic margins not palpable. MUSCULOSKELETAL: No obvious deformities. No clubbing. No cyanosis. No edema. NEUROLOGICAL: Awake and alert. No obvious cranial nerve deficits. Motor grossly within normal limits. Normal speech. PSYCHIATRIC: Bizarre affect. Data Data Last Documented VS Vital Signs Date Time Temp Pulse Resp B/P (MAP) Pulse Ox O2 Delivery O2 Flow Rate FiO2 01/11/18 10:35 97.8 76 105/53 (70) 99 Orders Orders Complete Blood Count With Diff (01/11/18 10:40) Comprehensive Metabolic Panel (01/11/18 10:40) Thyroid Stimulating Hormone (01/11/18 10:40) Psych Screen (01/11/18 10:40) Drug Screen, Random Urine (01/11/18 10:40) Alcohol (Ethanol) (01/11/18 10:40) Diet Regular Basic (01/11/18 Lunch) Diet Regular Basic (01/11/18 Dinner) Admit Order (Ed Use Only) (01/11/18 ) Labs Laboratory Tests Test 01/11/18 10:40 White Blood Count 6.3 TH/MM3 Red Blood Count 4.74 MIL/MM3 Hemoglobin 14.9 GM/DL Hematocrit 43.4 % Mean Corpuscular Volume 91.7 FL Mean Corpuscular Hemoglobin 31.5 PG Mean Corpuscular Hemoglobin Concent 34.4 % Red Cell Distribution Width 13.1 % Platelet Count 306 TH/MM3 Mean Platelet Volume 8.4 FL Neutrophils (%) (Auto) 78.2 % Lymphocytes (%) (Auto) 17.0 % Monocytes (%) (Auto) 3.6 % Eosinophils (%) (Auto) 0.2 % Basophils (%) (Auto) 1.0 % Neutrophils # (Auto) 5.0 TH/MM3 Lymphocytes # (Auto) 1.1 TH/MM3 Monocytes # (Auto) 0.2 TH/MM3 Eosinophils # (Auto) 0.0 TH/MM3 Basophils # (Auto) 0.1 TH/MM3 CBC Comment DIFF FINAL Differential Comment Blood Urea Nitrogen 30 MG/DL Creatinine 1.33 MG/DL Random Glucose 92 MG/DL Total Protein 8.4 GM/DL Albumin 4.8 GM/DL Calcium Level 9.8 MG/DL Alkaline Phosphatase 46 U/L Aspartate Amino Transf (AST/SGOT) 20 U/L Alanine Aminotransferase (ALT/SGPT) 25 U/L Total Bilirubin 0.5 MG/DL Sodium Level 140 MEQ/L Potassium Level 4.1 MEQ/L Chloride Level 106 MEQ/L Carbon Dioxide Level 23.0 MEQ/L Anion Gap 11 MEQ/L Estimat Glomerular Filtration Rate 41 ML/MIN Thyroid Stimulating Hormone 3rd Gen 0.836 uIU/ML Ethyl Alcohol Level LESS THAN 3 MG/DL MDM Medical Decision Making Medical Screen Exam Complete: Yes Emergency Medical Condition: Yes Medical Record Reviewed: Yes Differential Diagnosis Mood disorder versus personality disorder versus adjustment reaction disorder Narrative Course 62-year-old female presents emergency department under [place] act for psychiatric evaluation. Patient appears nontoxic. Her vital signs are stable. Lab work is complete reviewed and without acute concern. Patient is medically cleared to undergo psychiatric screening for further evaluation and disposition. Mental health screening discussed with the patient. Psychiatric screen ordered. Diagnosis Primary Impression: Schizophrenia, schizo-affective type, depressed Condition: Stable Nava Scruggs Jan 11, 2018 10:40
[2018-01-11 11:01] LABS: BASOPHIL # 0.1 TH/MM3 (0-0.2); EOSINOPHIL % 0.2 % (0.0-4.0); HEMATOCRIT 43.4 % (35.0-46.0); HEMOGLOBIN 14.9 GM/DL (11.6-15.3); LYMPHOCYTE # 1.1 TH/MM3 (1.0-4.8); MEAN CELL VOLUME 91.7 FL (80.0-100.0); MEAN CORPUSCULAR HEMOGLOBIN 31.5 PG (27.0-34.0); MEAN CORPUSCULAR HGB CONC 34.4 % (32.0-36.0); MEAN PLATELET VOLUME 8.4 FL (7.0-11.0); MONO % 3.6 % (0.0-8.0); MONOCYTE # 0.2 TH/MM3 (0-0.9); NEUT % 78.2 % (16.0-70.0); PLATELET COUNT 306 TH/MM3 (150-450); RED BLOOD COUNT 4.74 MIL/MM3 (4.00-5.30); RED CELL DISTRIBUTION WIDTH 13.1 % (11.6-17.2); WHITE BLOOD COUNT 6.3 TH/MM3 (4.0-11.0)
[2018-01-11 11:17] LABS: ALBUMIN 4.8 GM/DL (3.4-5.0); ALT (GPT) 25 U/L (10-53); AST (GOT) 20 U/L (15-37); BLOOD UREA NITROGEN 30 MG/DL (7-18); CALCIUM 9.8 MG/DL (8.5-10.1); CHLORIDE 106 MEQ/L (98-107); CREATININE 1.33 MG/DL (0.50-1.00); GLOMERULAR FILTRATION RATE 41 ML/MIN (>89); GLUCOSE,RANDOM 92 MG/DL (74-106); SODIUM (NA) 140 MEQ/L (136-145)
[2018-01-11 11:28] LABS: ALKALINE PHOSPHATASE 46 U/L (45-117); TOTAL BILIRUBIN ADULT 0.5 MG/DL (0.2-1.0); TOTAL PROTEIN 8.4 GM/DL (6.4-8.2)
[2018-01-11] MEDS ORDERED: Multivitamin PO (12:00)
[2018-01-11] MEDS ORDERED: VENTAER INH (12:01)
[2018-01-11] MEDS ORDERED: FLEE5TAB PO (12:03)
[2018-01-11] MEDS ORDERED: DIPH25TA5 PO (12:03)
[2018-01-11] MEDS ORDERED: BOOST PO (12:05)
[2018-01-11] MEDS ORDERED: IBUPROFEN 800 MG TAB PO PRN (15:30)
[2018-01-11] MEDS ORDERED: ALBUTEROL SULFATE 90 MCG/ACT HFA 8 GM INHALER INH PRN (15:30)
[2018-01-11] MEDS ORDERED: NICOTINE 21 MG/24 HR PATCH T-DERMAL PRN (15:45)
[2018-01-11] MEDS ORDERED: ACETAMINOPHEN 325 MG TAB PO PRN (15:45)
[2018-01-11] MEDS ORDERED: ALUMINUM/MAGNESIUM/SIMETH 30 ML CUP PO PRN (15:45)
[2018-01-11] MEDS ORDERED: MAGNESIUM HYDROXIDE SUSP 30 ML CUP PO PRN (15:45)
[2018-01-11 18:59] VITALS: BP 99/69; PULSE 61; RESP 16; TEMP 97.5; O2SAT 85
[2018-01-11 19:59] VITALS: BP 88/52; PULSE 88; RESP 16; O2SAT 100
[2018-01-11] MEDS ORDERED: diphenhydrAMINE HCL 25 MG CAP PO SCH (21:00)
[2018-01-11] MEDS: BISACODYL EC 5 MG TABEC PO SCH (21:00)
[2018-01-11] MEDS: DOCUSATE SODIUM 50 MG/SENNA 8.6 MG TAB PO SCH (21:00)
[2018-01-12 06:13] VITALS: BP 94/53; PULSE 55; RESP 16; TEMP 97.8; O2SAT 100
[2018-01-12] MEDS: CHOLECALCIFEROL (VIT D3) 1000 UNIT TAB PO SCH (08:29)
[2018-01-12] MEDS: MULTIVITAMIN TAB PO SCH (08:29)
[2018-01-12] MEDS: DOCUSATE SODIUM 50 MG/SENNA 8.6 MG TAB PO SCH ×2 (08:29→20:19)
[2018-01-12 10:00] VITALS: BP 103/53; PULSE 62; RESP 16
--- NOTE | 2018-01-12 11:11 | HHI.HP ---
Provisional Diagnosis Admission Date Jan 11, 2018 at 15:30 [place]. Schizoaffective disorder Certification of Person's Competence To Provide Express and Informed Consent I have personally examined Lesli Rollins , a person being served at [facility] on, Jan 12, 2018 11:11. Express and informed consent means consent voluntarily given in writing, by a competent person, after sufficient explanation and disclosure of the subject matter involved to enable the person to make a knowing and willful decision without any element of force, fraud, deceit, duress, or other form of constraint or coercion. This person is 18 years of age or older, is not now known to be incompetent to consent to treatment with a guardian advocate, and does not have a health care surrogate or proxy currently making medical treatment decisions. I have found this person to be one of the following: [] Competent to provide express and informed consent, as defined above, for voluntary admission to this facility and is competent to provide express and informed consent for treatment. He/she has the consistent capacity to make well reasoned, willful, and knowing decisions concerning his or her medical or mental health treatment. The person fully and consistently understands the purpose of the admission for examination/placement and is fully capable of personally exercising all rights assured [place] [] Incompetent to provide express and informed consent to voluntary admission, and this is incompetent to provide express and informed consent to treatment. The person must be transferred to involuntary status and a petition for a guardian advocate filed with the Circuit Court. [] Refusing to provide express and informed consent to voluntary admission but is competent to provide express and informed consent for treatment. The person must be discharged or transferred to involuntary status. Form shall be completed within 24 hours of a person's arrival at the receiving facility and filed in the clinical record of each person: 1. Admitted on a voluntary basis 2. Permitted to provide express and informed consent to his/her own treatment 3. Allowed to transfer from involuntary to voluntary status 4. Prior to permitting a person to consent to his or her own treatment after having been previously found incompetent to consent to treatment. History of Present Illness Capacity: Lacks Capacity HPI The patient is 62-year-old woman, domiciled in [facility] in [facility], single, unemployed, [facility], mother of a 33 years old daughter, with psychiatric history of schizophrenia, schizoaffective disorder, multiple psychiatric admissions, the last psychiatric admission was here in [place] in December 2017, has a FACT TEAM, outpatient psychiatric care with Dr. Wan , she is on Abilify 20 mg daily, she has history of ECT , no significant medical history, who presents to the ED under Foote act after recent suicide attempt in which she walked into the ocean in the context of continued persistent delusions of inability to eliminates ways for her body which they continue to accumulate in her body which patient was admitted to the inpatient psychiatry for further evaluation and management. Patient was found lying hospital bed noted be superficially cooperative, irritable stating that she feels "pretty crappy" and states that she gave up and try to kill herself. She states that she went into the ocean but had become feeling scared that she was unable to test the floor and return back to her assisted living facility and management to that when she had done which I will was activated the patient was brought to the hospital. Patient states that her memory is gone and that she had lost the ability to go to the bathroom and has no desire to live due to this stating that she has a illness which continues to "builds up and builds up in my body". Patient denies any abdominal pain only stating that she feels pressure all over her body. Patient continues to endorse suicidal ideations denying any perceptional services but continues with this delusion. Past psychiatric history: Previous psychiatric diagnoses schizophrenia versus schizoaffective disorder, multiple psychiatric admissions, previous suicide attempts, currently on FACT team, prior history of treatment of ECT and currently on aripiprazole 20 mg p.o. daily Substance use history: Denies Past medical history: Denies Allergies: Chlorpromazine, codeine, Depakote, Haldol, thioridazine, thiothixene Social history: Raised in [place], single, unemployed on SSI, has 1 adult daughter, highest education is 12th grade, domiciled at assisted living facility. Review of Systems Except as stated in HPI: all other systems reviewed are Neg Past Psych History Violence risk - others (6 mos) Low Violence risk - self (6 mos) Elevated due to recent suicide attempt Substance Abuse History Drugs/Alcohol past 12 months Denies Past Family Social History Coded Allergies: chlorpromazine (Unverified Allergy, Severe, SWOLLEN TONGUE, 12/26/17) codeine (Unverified Allergy, Severe, 01/11/18) Per MAR sent by [facility]. divalproex sodium (Unverified Allergy, Severe, SWOLLEN TONGUE, 01/11/18) Per MAR sent by [facility]. haloperidol (Unverified Allergy, Severe, 01/11/18) Per MAR sent by [facility]. thioridazine (Unverified Allergy, Severe, SWOLLEN TONGUE, 12/26/17) thiothixene (Unverified Allergy, Severe, 12/26/17) Active Scripts Sennosides-Docusate Sodium (Gnp Senna Plus 8.6-50 mg) 8.6 Mg-50 Mg Tab, 2 TAB PO BID for health for 15 Days, #60 TAB 1 Refill Prov:Parag Santiago MD 01/05/18 Diphenhydramine HCl (Diphenhydramine HCl) 50 Mg Cap, 50 MG PO HS for health for 30 Days, #30 CAP Prov:Parag Santiago MD 01/05/18 Aripiprazole (Aripiprazole) 20 Mg Tab, 20 MG PO DAILY for Mental Health for 30 Days, #30 TAB 0 Refills Prov:Parag Santiago MD 01/05/18 Reported Medications Lactose-Reduced Food (Boost) 0.04 Gram-1 Kcal/Ml Liquid, 1 CAN PO DAILY for Nutritional Supplement 01/13/[address] (Bisacodyl EC) 5 Mg Tabec, 5 MG PO HS, TAB 0 Refills 01/11/18 Diphenhydramine HCl (Diphenhydramine HCl) 25 Mg Tablet, 1 CAP PO HS 01/11/18 Albuterol 18 GM Inh (Ventolin Hfa 18 GM Inh) 90 Mcg/Act Aer, 2 PUFF INH BID for Shortness of Breath, #1 INHALER 0 Refills 01/11/18 Ibuprofen (Ibuprofen) 800 Mg Tab, 800 MG PO DAILY Y for PAIN, TAB 0 Refills 12/26/17 Cholecalciferol (Vitamin D-1000) 1,000 Unit Tab, 1000 UNITS PO DAILY for Nutritional Supplement, #1 BOTTLE 0 Refills 09/25/17 Multiple Vitamin (Multi-Vitamin Daily) 1 Tab Tab, 1 TAB PO DAILY for Nutritional Supplement, TAB 0 Refills 09/25/17 Current Medications Medications (Trade) Dose Ordered Sig/Elzbieta Route Start Time Stop Time Status Last Admin (Proair Hfa Inh) 2 puff BID PRN INH 01/11/18 15:30 (Abilify) 20 mg DAILY PO 01/12/18 09:00 01/12/18 08:30 (Dulcolax Ec) 5 mg HS PO 01/11/18 21:00 (Vitamin D3) 1,000 units DAILY PO 01/12/18 09:00 01/12/18 08:29 (Motrin) 800 mg DAILY PRN PO 01/11/18 15:30 (Alexandra-Colace) 2 tab BID PO 01/11/18 21:00 01/12/18 08:29 (Benadryl) 1 mg HS PO 01/11/18 21:00 (Theragran) 1 tab DAILY PO 01/12/18 09:00 01/12/18 08:29 (Tylenol) 650 mg Q4H PRN PO 01/11/18 15:45 (Milk Of Magnesia Liq) 30 ml DAILY PRN PO 01/11/18 15:45 (Mag-Al Plus Susp Liq) 30 ml Q6H PRN PO 01/11/18 15:45 (Habitrol 21 Mg Patch.24 Hr) 1 patch DAILY PRN T-DERMAL 01/11/18 15:45 Social History See HPI Patient's Strengths (min. 2) Verbal and communicative Physical Exam Patient not noted to be in acute distress, no gross motor abnormalities, no tremors or EPS, no noted psychomotor retardation or agitation. Vital Signs Vital Signs Date Time Temp Pulse Resp B/P (MAP) Pulse Ox O2 Delivery O2 Flow Rate FiO2 01/12/18 10:00 62 16 103/53 (70) 01/12/18 06:13 97.8 100 Lab Results Test 01/12/18 05:25 Urine Opiates Screen NEG Urine Barbiturates Screen NEG Urine Amphetamines Screen NEG Urine Benzodiazepines Screen NEG Urine Cocaine Screen NEG Urine Cannabinoids Screen NEG Mental Status Examination Appearance: Appropriate Consciousness: Alert Orientation: Person Motor Activity: Normal gait Speech: Unremarkable Language: Adequate Fund of Knowledge: Inadequate Attention and Concentration: Adequate Memory: Unremarkable Mood: Anxious, Irritable Affect: Irritable Thought Process & Associations: Other ([place]) Thought Content: Delusional Hallucination Type: None Delusion Type: Somatic Suicidal Ideation: Yes Suicidal Plan: No Suicidal Intention: No Homicidal Ideation: No Homicidal Plan: No Homicidal Intention: No Insight: Poor Judgment: Poor Assessment & Plan Problem List: (1) Schizoaffective disorder, chronic condition with acute exacerbation ICD Codes: F25.8 - Other schizoaffective disorders Assessment & Plan Estimated LOS: 7-10 days. Patient is a 62-year-old woman, domiciled an assisted living facility, who carries a diagnosis schizophrenia versus schizoaffective disorder, multiple psychiatric admissions, recently discharged from [place] on 01/05/18, previous suicide attempts, was brought into the ED under Foote act after having walked into the ocean in a suicide attempt and was subsequently admitted to the inpatient psychiatry for further evaluation and management. Patient this time continues to endorse delusions of her body not able to eliminate food properly which has contributed to her feeling depressed and subsequent suicide attempt as stated above. We will decrease Abilify to 25 mg p.o. daily to address delusions psychosis, we will consult hospitalist for evaluation of her reported constipation. We will also consult dietitian for poor p.o. intake. We will continue to monitor mood and behavior. Petition for involuntary hospitalization started, second opinion requested. Patient's daughter will serve as health care surrogate and guardian advocate was contacted via telephone agreed to current treatment which B/R/A were reviewed. discharge planning in progress. Discharge Planning Patient return back to the assisted living facility Parag Santiago MD Jan 12, 2018 11:11
[2018-01-12] MEDS ORDERED: LORazepam 1 MG TAB PO PRN (11:15)
--- NOTE | 2018-01-12 11:17 | PD.TTN ---
Patient Problems 1. Discharge planning 2. Medication compliance 3. Knowledge deficit 4. Lack of coping skills Progress Toward Goals Provider Present: Dr. Dequan Santiago Provider Input: Dr. Hall's treatment team met to discuss patient's medication, discharge and treatment plan. Patient is new needs to be assessed Nurse(s) Input: Patient refused medication, seclusive, and withdrawn Psychiatric Counselors Present: [facility] Psych Therapist Input: Patient is new will assess for treatment Group Spec/RT/OT/LAW Present: THANH Limon Group Spec/RT/OT/LAW Input: Patient is new will assess for treatment Sara [facility] Jan 12, 2018 11:17
[2018-01-12 14:00] VITALS: BP 101/53; PULSE 73; RESP 16
--- NOTE | 2018-01-12 14:20 | PD.CONS ---
HPI Service [facility] Consult Requested By Psychiatry team Reason for Consult Assist with decreased renal function, endorsing complaints of constipation Primary Care Physician No Primary Care Physician Diagnoses: History of Present Illness Patient is a 62-year-old female with past medical history of schizophrenia, mild ileus who initially came into hospital under Foote act for psychiatric evaluation. Per review of records patient walked to the beach in her bathrobe contemplating suicide. She is now admitted to inpatient psychiatry and further evaluation. Consulted for assistance with decreased renal function, complaints of constipation. Patient seen and examined today. Patient known to me from previous admission with the same complaints. Reports she has no bowel movement today, last bowel movement was yesterday but it was small, hard. States she thinks that she has more to move. States she has been eating well but no bowel movement. Patient appears to be obsessed with bowel movement. Patient continues to state that all the toxins and her feces is excreting to her skin especially on her thighs, and her bilateral arms. Patient is showing me her thighs and her legs and saying that inside of it there is full of feces because she cannot have a bowel movement. Patient became irritable, states she does not want to talk about it until I remove the pieces inside her. Denies nausea, vomiting, abdominal pain or cramping. Denies fevers, chills. Denies shortness of breath or dyspnea. Denies chest pain. Review of Systems ROS Limitations: Psychotic Except as stated in HPI: all other systems reviewed are Neg Past Family Social History Allergies: Coded Allergies: chlorpromazine (Unverified Allergy, Severe, SWOLLEN TONGUE, 12/26/17) codeine (Unverified Allergy, Severe, 01/11/18) Per MAR sent by [facility]. divalproex sodium (Unverified Allergy, Severe, SWOLLEN TONGUE, 01/11/18) Per MAR sent by [facility]. haloperidol (Unverified Allergy, Severe, 01/11/18) Per MAR sent by [facility]. thioridazine (Unverified Allergy, Severe, SWOLLEN TONGUE, 12/26/17) thiothixene (Unverified Allergy, Severe, 12/26/17) Past Medical History Poor historian, per review of EMR Hyperlipidemia Arthritis Vitamin D deficiency Seizure disorder Bipolar disorder Schizophrenia Past Surgical History Poor historian, per review of EMR Reported Medications Reported Meds & Active Scripts Active Gnp Senna Plus 8.6-50 mg (Sennosides-Docusate Sodium) 8.6 Mg-50 Mg Tab 2 Tab PO BID 15 Days Diphenhydramine HCl 50 Mg Cap 50 Mg PO HS 30 Days Aripiprazole 20 Mg Tab 20 Mg PO DAILY 30 Days [Albuterol Hfa Inh] 60 PUFF/8 GM Aero 2 Puff INH BID 30 Days Reported [Boost Liquid] 1 Can PO DAILY Bisacodyl EC (Bisacodyl) 5 Mg Tabec 5 Mg PO HS Diphenhydramine HCl 25 Mg Tablet 1 Cap PO HS Ventolin Hfa 18 GM Inh (Albuterol Sulfate) 90 Mcg/Act Aer 2 Puff INH BID PRN [Multivitamin ] 1 Tab PO DAILY Ibuprofen 800 Mg Tab 800 Mg PO DAILY PRN Vitamin D-1000 (Cholecalciferol) 1,000 Unit Tab 1,000 Units PO DAILY Multi-Vitamin Daily (Multiple Vitamin) 1 Tab Tab 1 Tab PO DAILY Active Ordered Medications Current Medications Medications (Trade) Dose Ordered Sig/Elzbieta Route Start Time Stop Time Status Last Admin (Proair Hfa Inh) 2 puff BID PRN INH 01/11/18 15:30 (Dulcolax Ec) 5 mg HS PO 01/11/18 21:00 (Vitamin D3) 1,000 units DAILY PO 01/12/18 09:00 01/12/18 08:29 (Motrin) 800 mg DAILY PRN PO 01/11/18 15:30 (Alexandra-Colace) 2 tab BID PO 01/11/18 21:00 01/12/18 08:29 (Theragran) 1 tab DAILY PO 01/12/18 09:00 01/12/18 08:29 (Tylenol) 650 mg Q4H PRN PO 01/11/18 15:45 (Milk Of Magnesia Liq) 30 ml DAILY PRN PO 01/11/18 15:45 (Mag-Al Plus Susp Liq) 30 ml Q6H PRN PO 01/11/18 15:45 (Habitrol 21 Mg Patch.24 Hr) 1 patch DAILY PRN T-DERMAL 01/11/18 15:45 (Benadryl) 25 mg HS PO 01/12/18 21:00 (Ativan) 1 mg Q6H PRN PO 01/12/18 11:15 (Abilify) 25 mg DAILY PO 01/13/18 09:00 Family History Does not know of any family medical history Social History Tobacco use half a pack per day current day smoker Denies alcohol use Denies illicit drug use Physical Exam Vital Signs Vital Signs Date Time Temp Pulse Resp B/P (MAP) Pulse Ox O2 Delivery O2 Flow Rate FiO2 01/12/18 14:00 73 16 101/53 (69) 01/12/18 10:00 62 16 103/53 (70) 01/12/18 06:13 97.8 55 16 94/53 (67) 100 01/11/18 19:59 88 16 88/52 (64) 100 01/11/18 18:59 97.5 61 16 99/69 (79) 85 Physical Exam GENERAL: This is a thin appearing, well-developed patient, in no apparent distress. SKIN: Warm and dry. HEENT: Normocephalic. Pupils equal round and reactive. Nose without bleeding. Airway patent. NECK: Trachea midline. No JVD. Supple. CARDIOVASCULAR: Regular without murmurs, gallops, or rubs. RESPIRATORY: Clear to auscultation. Breath sounds equal bilaterally. No wheezes , rales, or rhonchi. GASTROINTESTINAL: Abdomen soft, non-tender, nondistended. Bowel Sounds normoactive x4. MUSCULOSKELETAL: Extremities without clubbing, cyanosis, or edema. NEUROLOGICAL: Awake and alert. Oriented to place, person. No focal neuro deficit. Moves all extremities. Pressured speech. Anxious, irritable Laboratory Laboratory Tests Test 01/12/18 05:25 Urine Opiates Screen NEG Urine Barbiturates Screen NEG Urine Amphetamines Screen NEG Urine Benzodiazepines Screen NEG Urine Cocaine Screen NEG Urine Cannabinoids Screen NEG Result Diagram: 01/11/18 1040 01/11/18 1040 Assessment and Plan Assessment and Plan Patient is a 62-year-old female with past medical history of schizophrenia, mild ileus who initially came into hospital under Foote act for psychiatric evaluation. Per review of records patient walked to the beach in her bathrobe contemplating suicide. She is now admitted to inpatient psychiatry and further evaluation. Consulted for assistance with decreased renal function, complaints of constipation. Schizophrenia, bipolar disorder -Managed by psychiatry team HxMild ileus Constipation Possibly poor p.o. intake -Complains of no bowel movement except small stools, denies nausea, vomiting. Abdominal exam benign, soft, bowel sounds are present, nondistended. -Check abdominal x-ray -Start bowel regimen. Lactulose 1 now and daily -Encourage p.o. hydration -Patient is very obsessive with bowel movements. She is the same way when she came in previous admission even if she has bowel movement she keeps on saying that she does not have any bowel movements and that is going through her skin and inside her thighs and arms. Acute kidney injury Slightly elevated BUN and creatinine -Possibly secondary to dehydration -Encourage p.o. fluid and -Follow renal indicis DVT prop early ambulation Code Status Full Code Discussed Condition With Patient, nurse Marva Walker Jan 12, 2018 14:20
[2018-01-12] MEDS: LACTULOSE SYRUP 20 GM/30 ML CUP PO SCH (16:00)
[2018-01-12] MEDS ORDERED: BISACODYL 10 MG SUPP RECTAL PRN (16:00)
[2018-01-12] MEDS ORDERED: LACTULOSE SYRUP 20 GM/30 ML CUP PO PRN (16:00)
[2018-01-12 18:18] VITALS: BP 109/60; PULSE 68; RESP 16; TEMP 97.3; O2SAT 99
--- NOTE | 2018-01-12 18:37 | RADRPT ---
EXAM DATE: 01/12/2018 6:18 PM EDT AGE/SEX: 62 years / Female INDICATIONS: Abdominal pain. CLINICAL DATA: This is the patient's initial encounter. Patient reports that signs and symptoms have been present for 2 months and indicates a pain score of 10/10. MEDICAL/SURGICAL HISTORY: None. None. COMPARISON: [facility] [place], ABDOMEN KUB ONLY, 11/20/2017. . FINDINGS: The bowel gas is nonspecific. There are no signs of obstruction or free air for technique. No definite calcified stones are identified for technique. Moderate stool is present throughout the colon. CONCLUSION: Unremarkable study except for stool. Electronically signed by: Katherine Alvarez MD 01/12/2018 6:35 PM EDT
[2018-01-12] MEDS: diphenhydrAMINE HCL 25 MG CAP PO SCH (20:18)
[2018-01-12] MEDS: BISACODYL EC 5 MG TABEC PO SCH (20:19)
[2018-01-12] MEDS ORDERED: FAMOTIDINE 20 MG TAB PO SCH (21:00)
[2018-01-13 06:09] VITALS: BP 98/55; PULSE 59; RESP 18; TEMP 98; O2SAT 100
--- NOTE | 2018-01-13 07:27 | PD.PSY.CON ---
Provisional Diagnosis Admission Date Jan 11, 2018 at 15:30 [place] I. Schizoaffective disorder History of Present Illness Service Psychiatry Consult Requested By Dr. Santiago Reason for Consult Second opinion petition supporting Foote act Primary Care Physician No Primary Care Physician HPI Patient is a 62-year-old white female admitted to Dr. Santiago service under the Foote act Dr. Santiago H&P reviewed and agreed with. Dr. Santiago was done first opinion petition supporting Foote act. Patient seen by me in the [place] with floor staff patient is alert continues delusional feeling that she has her whole body filled with stool and urine that she can make a living that way and that I should please kill her. Patient showing no insight into the significant delusional system. At this time I feel patient does not meet Foote criteria thus I will cosign second opinion petition supporting Foote act Past Family Social History Coded Allergies: chlorpromazine (Unverified Allergy, Severe, SWOLLEN TONGUE, 12/26/17) codeine (Unverified Allergy, Severe, 01/11/18) Per MAR sent by [facility]. divalproex sodium (Unverified Allergy, Severe, SWOLLEN TONGUE, 01/11/18) Per MAR sent by [facility]. haloperidol (Unverified Allergy, Severe, 01/11/18) Per MAR sent by [facility]. thioridazine (Unverified Allergy, Severe, SWOLLEN TONGUE, 12/26/17) thiothixene (Unverified Allergy, Severe, 12/26/17) Active Scripts Sennosides-Docusate Sodium (Gnp Senna Plus 8.6-50 mg) 8.6 Mg-50 Mg Tab, 2 TAB PO BID for health for 15 Days, #60 TAB 1 Refill Prov:Parag Santiago MD 01/05/18 Diphenhydramine HCl (Diphenhydramine HCl) 50 Mg Cap, 50 MG PO HS for health for 30 Days, #30 CAP Prov:Parag Santiago MD 01/05/18 Aripiprazole (Aripiprazole) 20 Mg Tab, 20 MG PO DAILY for Mental Health for 30 Days, #30 TAB 0 Refills Prov:Parag Santiago MD 01/05/18 [Albuterol Hfa Inh] 60 PUFF/8 GM AERO No Conflict Check, 2 PUFF INH BID for Health for 30 Days, 0 Refills Prov:Ottoniel Weber MD 11/24/17 Reported Medications [Boost Liquid] No Conflict Check, 1 CAN PO DAILY 01/11/[address] (Bisacodyl EC) 5 Mg Tabec, 5 MG PO HS, TAB 0 Refills 01/11/18 Diphenhydramine HCl (Diphenhydramine HCl) 25 Mg Tablet, 1 CAP PO HS 01/11/18 Albuterol 18 GM Inh (Ventolin Hfa 18 GM Inh) 90 Mcg/Act Aer, 2 PUFF INH BID Y for SHORTNESS OF BREATH, #1 INHALER 0 Refills 01/11/18 [Multivitamin ] No Conflict Check, 1 TAB PO DAILY 01/11/18 Ibuprofen (Ibuprofen) 800 Mg Tab, 800 MG PO DAILY Y for PAIN, TAB 0 Refills 12/26/17 Cholecalciferol (Vitamin D-1000) 1,000 Unit Tab, 1000 UNITS PO DAILY for Nutritional Supplement, #1 BOTTLE 0 Refills 09/25/17 Multiple Vitamin (Multi-Vitamin Daily) 1 Tab Tab, 1 TAB PO DAILY for Nutritional Supplement, TAB 0 Refills 09/25/17 Current Medications Medications (Trade) Dose Ordered Sig/Elzbieta Route Start Time Stop Time Status Last Admin (Proair Hfa Inh) 2 puff BID PRN INH 01/11/18 15:30 (Dulcolax Ec) 5 mg HS PO 01/11/18 21:00 01/12/18 20:19 (Vitamin D3) 1,000 units DAILY PO 01/12/18 09:00 01/12/18 08:29 (Motrin) 800 mg DAILY PRN PO 01/11/18 15:30 (Alexandra-Colace) 2 tab BID PO 01/11/18 21:00 01/12/18 20:19 (Theragran) 1 tab DAILY PO 01/12/18 09:00 01/12/18 08:29 (Tylenol) 650 mg Q4H PRN PO 01/11/18 15:45 (Milk Of Magnesia Liq) 30 ml DAILY PRN PO 01/11/18 15:45 (Mag-Al Plus Susp Liq) 30 ml Q6H PRN PO 01/11/18 15:45 (Habitrol 21 Mg Patch.24 Hr) 1 patch DAILY PRN T-DERMAL 01/11/18 15:45 (Benadryl) 25 mg HS PO 01/12/18 21:00 01/12/18 20:18 (Ativan) 1 mg Q6H PRN PO 01/12/18 11:15 (Abilify) 25 mg DAILY PO 01/13/18 09:00 (Pepcid) 20 mg BID PO 01/12/18 21:00 01/12/18 20:18 (Lactulose Liq) 30 ml DAILY PO 01/12/18 16:00 01/12/18 16:00 (Lactulose Liq) 30 ml DAILY PRN PO 01/12/18 16:00 (Dulcolax Supp) 10 mg DAILY PRN RECTAL 01/12/18 16:00 Physical Exam Vital Signs Vital Signs Date Time Temp Pulse Resp B/P (MAP) Pulse Ox O2 Delivery O2 Flow Rate FiO2 01/13/18 06:09 98.0 59 18 98/55 (69) 100 Mental Status Examination Appearance: Appropriate, Disheveled (Slightly) Consciousness: Alert Orientation: x4 Motor Activity: Normal gait Speech: Unremarkable Language: Adequate Fund of Knowledge: Adequate Attention and Concentration: Easily Distracted Memory: Impaired Mood: Sad, Irritable Affect: Other (Slight increased range and intensity) Thought Process & Associations: Disorganized Thought Content: Bizarre thinking Hallucination Type: None Delusion Type: Bizarre Suicidal Ideation: Yes Suicidal Plan: Yes Suicidal Intention: Yes Homicidal Ideation: No Homicidal Plan: No Homicidal Intention: No Insight: Poor Judgment: Poor Assessment & Plan Problem List: (1) Schizoaffective disorder, bipolar type ICD Codes: F25.0 - Schizoaffective disorder, bipolar type Assessment & Plan Estimated LOS: Preston Roberts MD Jan 13, 2018 07:27
[2018-01-13] MEDS: FAMOTIDINE 20 MG TAB PO SCH (09:11)
[2018-01-13] MEDS: ARIPiprazole 10 MG TAB PO SCH (09:11)
[2018-01-13] MEDS: CHOLECALCIFEROL (VIT D3) 1000 UNIT TAB PO SCH (09:12)
[2018-01-13] MEDS: MULTIVITAMIN TAB PO SCH (09:12)
[2018-01-13] MEDS: LACTULOSE SYRUP 20 GM/30 ML CUP PO SCH (09:14)
[2018-01-13] MEDS: DOCUSATE SODIUM 50 MG/SENNA 8.6 MG TAB PO SCH ×2 (09:14→21:00)
[2018-01-13 09:34] LABS: CALCIUM 9.1 MG/DL (8.5-10.1); CREATININE 1.07 MG/DL (0.50-1.00)
[2018-01-13] MEDS ORDERED: LACT237L26 PO (10:24)
--- NOTE | 2018-01-13 14:13 | HHI.PR ---
Subjective Remarks Follow-up visit for reported constipation and JASON. Nursing staff reports that patient continues to report complaints of constipation and this morning reported inability to urinate. Patient is seen and examined in her room resting in bed in no acute distress. Patient reports that she has been unable to urinate and move her bowels however subsequently states that today she had a hard stool. She reports that her constipation has been ongoing for the past 2 months, denies any nausea, vomiting, abdominal pain, fevers, chills, shortness of breath, cough, or chest pain. Patient grabs the skin on her legs as well as abdomen and states that this was not there 2 months ago. Objective Vitals Vital Signs Date Time Temp Pulse Resp B/P (MAP) Pulse Ox O2 Delivery O2 Flow Rate FiO2 01/13/18 06:09 98.0 59 18 98/55 (69) 100 01/12/18 18:18 97.3 68 16 109/60 (76) 99 Result Diagram: 01/11/18 1040 01/13/18 0836 Imaging Last Impressions Abdomen X-Ray 01/12/18 0000 Signed Impressions: CONCLUSION: Unremarkable study except for stool. Objective Remarks GENERAL: This is a thin appearing, well-developed patient, in no apparent distress. SKIN: Warm and dry. HEENT: Normocephalic. Pupils equal round. Nose without bleeding. Airway patent. NECK: Trachea midline. CARDIOVASCULAR: Regular without murmurs, gallops, or rubs. RESPIRATORY: Clear to auscultation. Breath sounds equal bilaterally. No wheezes , rales, or rhonchi. GASTROINTESTINAL: Abdomen soft, non-tender, nondistended. Bowel Sounds normoactive x4. MUSCULOSKELETAL: Extremities without clubbing, cyanosis, or edema. NEUROLOGICAL: Awake and alert. Oriented to place, person. No focal neuro deficit. Moves all extremities. Pressured speech. Anxious, irritable A/P Assessment and Plan Patient is a 62-year-old female with past medical history of schizophrenia, mild ileus who initially came into hospital under [facility] for psychiatric evaluation. Per review of records [place] the [place] in [place] contemplating suicide. She is now admitted to inpatient psychiatry and further evaluation. Consulted for assistance with decreased renal function, complaints of constipation. Schizophrenia, bipolar disorder -Managed by psychiatry team HxMild ileus Constipation Possibly poor p.o. intake -Complains of no bowel movement except small stools, denies nausea, vomiting. Abdominal exam benign, soft, bowel sounds are present, nondistended. -KUB unremarkable with the exception of stool -Continue bowel regimen. -Encourage p.o. hydration -Patient is very obsessive with bowel movements, known to me personally from prior admissions. -Patient to be changed to a private room with lock bathroom, nursing to monitor for voiding as well as bowel movements. Acute kidney injury Slightly elevated BUN and creatinine -Possibly secondary to dehydration -BMP from this morning reviewed, improvement in renal function -Continue to encourage p.o. fluid DVT prop early ambulation Discussed with nursing staff and patient. Vincent Fabian Jan 13, 2018 14:13
--- NOTE | 2018-01-13 16:27 | HHI.PYPN ---
Subjective Remarks Patient seen for follow-up, chart reviewed. Discussion with nursing staff reported that not eating or drinking today, continues to believe that waste are building up, had bowel movement today, asking about euthanasia. Patient was found lying on hospital bed, noted to be irritable, superficially cooperative. She states feeling "the same", reporting difficulty with sleep. She states that her mood is "not good". She reports eating and drinking about 50% of her tray but as per nursing report at most ate about 25%. She states having a bowel movement today and states it was "pellets". Patient also mentions she had called her daughter and apologized for not having a plan for her when she was born. Patient states that she cannot sit in bed "with all this in me". Review of Systems Except as stated in HPI: all other systems reviewed are Neg Mental Status Examination Appearance: Appropriate Consciousness: Alert Orientation: Person Motor Activity: Normal gait Speech: Unremarkable Language: Adequate Fund of Knowledge: Inadequate Attention and Concentration: Adequate Memory: Unremarkable Mood: Anxious, Irritable Affect: Irritable Thought Process & Associations: Other ([place]) Thought Content: Delusional Hallucination Type: None Delusion Type: Somatic Suicidal Ideation: Yes Suicidal Plan: No Suicidal Intention: No Homicidal Ideation: No Homicidal Plan: No Homicidal Intention: No Insight: Poor Judgment: Poor Results Labs Labs reviewed Test 01/13/18 08:36 Blood Urea Nitrogen 22 MG/DL Creatinine 1.07 MG/DL Random Glucose 81 MG/DL Calcium Level 9.1 MG/DL Sodium Level 141 MEQ/L Potassium Level 3.9 MEQ/L Chloride Level 106 MEQ/L Carbon Dioxide Level 28.0 MEQ/L Anion Gap 7 MEQ/L Estimat Glomerular Filtration Rate 52 ML/MIN Vitals/IOs Vital Signs Date Time Temp Pulse Resp B/P (MAP) Pulse Ox O2 Delivery O2 Flow Rate FiO2 01/13/18 06:09 98.0 59 18 98/55 (08) 100 Assessment & Plan Problem List: (1) Schizoaffective disorder, bipolar type ICD Codes: F25.0 - Schizoaffective disorder, bipolar type Assessment & Plan Patient this time continues with bizarre delusions or wastes accumulating in her body and focused on her urination and bowel movement output. Patient has had bowel movement today and is continually being encourage the patient has functional bowels yet with limited insight. We will continue to titrate Abilify with consideration of cross titrating to clozapine if max dose of Abilify has been reach with limited or no response. We will continue to monitor mood and behavior. Patient's current renal function slightly improving as per recent labs. Continue recommendations as per prior medical team. Nursing staff to record I&Os. Discharge planning in progress. Justification for Cont. Inpt. At risk for further decompensation if at lower level of care Discharge Planning Patient return back to her assisted living facility. Parag Santiago MD Jan 13, 2018 16:27
[2018-01-13 20:34] VITALS: BP 96/44; PULSE 54; RESP 20; TEMP 98.1; O2SAT 97
[2018-01-13] MEDS: diphenhydrAMINE HCL 25 MG CAP PO SCH (21:00)
[2018-01-13] MEDS: BISACODYL EC 5 MG TABEC PO SCH (21:00)
[2018-01-14 06:29] VITALS: BP 89/42; PULSE 50; RESP 18; TEMP 97.3; O2SAT 100
[2018-01-14] MEDS: CHOLECALCIFEROL (VIT D3) 1000 UNIT TAB PO SCH (08:44)
[2018-01-14] MEDS: FAMOTIDINE 20 MG TAB PO SCH (08:45)
[2018-01-14] MEDS: ARIPiprazole 10 MG TAB PO SCH (08:45)
[2018-01-14] MEDS: MULTIVITAMIN TAB PO SCH (08:45)
[2018-01-14] MEDS: LACTULOSE SYRUP 20 GM/30 ML CUP PO SCH (08:48)
[2018-01-14] MEDS: DOCUSATE SODIUM 50 MG/SENNA 8.6 MG TAB PO SCH ×2 (08:48→21:00)
[2018-01-14] MEDS ORDERED: SODIUM CHLOR 0.9% 1000 ML INJ 1,000 ML IV ONE (10:30)
--- NOTE | 2018-01-14 10:52 | HHI.PR ---
Subjective Remarks Follow-up visit for reported constipation, JASON, poor p.o. intake. A page and call back to nurse around 9:40 AM regarding patient's low blood pressure this morning. Nursing staff reports that patient has had little p.o. intake and not drinking fluids. Patient is seen and examined around 1045 this morning in her room in no acute distress, able to sit up in the bed without difficulty or assistance. She denies any fevers, chills, nausea, vomiting, dizziness, lightheadedness, headache or visual changes. Patient is also denying any chest pain, shortness of breath, or cough. Reports that she is urinating but "not much". She denies any bowel movement. Less engaged and talkative today, appears depressed. Objective Vitals Vital Signs Date Time Temp Pulse Resp B/P (MAP) Pulse Ox O2 Delivery O2 Flow Rate FiO2 01/14/18 06:29 97.3 50 18 89/42 (58) 100 01/13/18 20:34 98.1 54 20 96/44 (61) 97 I/O 01/13/18 01/13/18 01/13/18 01/14/18 01/14/18 01/14/18 07:00 15:00 23:00 07:00 15:00 23:00 Intake Total 1140 ml Output Total 300 ml Balance 840 ml Intake Oral 1140 ml Output Urine Total 300 ml # Voids 2 Result Diagram: 01/11/18 1040 01/13/18 0836 Imaging Last Impressions Abdomen X-Ray 01/12/18 0000 Signed Impressions: CONCLUSION: Unremarkable study except for stool. Objective Remarks GENERAL: This is a thin appearing, well-developed patient, in no apparent distress. SKIN: Warm and dry. HEENT: Normocephalic. Pupils equal round. Nose without bleeding. Airway patent. NECK: Trachea midline. CARDIOVASCULAR: Regular without murmurs, gallops, or rubs. RESPIRATORY: Clear to auscultation. Breath sounds equal bilaterally. No wheezes , rales, or rhonchi. GASTROINTESTINAL: Abdomen soft, non-tender, nondistended. Bowel Sounds normoactive x4. MUSCULOSKELETAL: Extremities without clubbing, cyanosis, or edema. NEUROLOGICAL: Awake and alert. No focal neuro deficit. Moves all extremities. Less talkative today, appears depressed. A/P Assessment and Plan Patient is a 62-year-old female with past medical history of schizophrenia, mild ileus who initially came into hospital under [facility] for psychiatric evaluation. Per review of records [place] the [place] in [place]robe contemplating suicide. She is now admitted to inpatient psychiatry and further evaluation. Consulted for assistance with decreased renal function, complaints of constipation. Schizophrenia, bipolar disorder -Managed by psychiatry team HxMild ileus Constipation Poor p.o. intake -Poor p.o. intake, denies bowel movement today. Abdominal exam benign, soft, bowel sounds are present, nondistended. -KUB unremarkable with the exception of stool -Continue bowel regimen. -Hx obsession with bowel movements, known to me personally from prior admissions. -Private room with lock bathroom, nursing to monitor for voiding as well as bowel movements. - IVF for hydration, start Megace for appetite. Acute kidney injury Slightly elevated BUN and creatinine -Possibly secondary to dehydration -BMP improved -IVF Hypotension - Likely secondary to poor p.o. intake, looking through her VS she has been trending down with a.m. BP 80's/40's asymptomatic - Will provide with 1L NS followed by NS 100ml/hr for hydration - Continue monitoring vs closely, moved to medical psych department DVT prop early ambulation Discussed with nursing staff and patient. Vincent Fabian Jan 14, 2018 10:52
[2018-01-14] MEDS: SODIUM CHLOR 0.9% 1000 ML INJ 1,000 ML IV SCH ×2 (15:26→20:30)
--- NOTE | 2018-01-14 15:51 | HHI.PYPN ---
Subjective Remarks Patient seen in her room with floor staff, chart reviewed, patient discussed with nurse. Patient laying in bed covers to her chin with IV running. I attempted to discuss with her the reasons for the transfer the fourth floor on the IV she showed very little insight into this. Patient mood is somewhat more depressed today the expression of her delusions and paranoia is softer also perhaps related to her overall physical condition. In any event for now continue medications no change Review of Systems Except as stated in HPI: all other systems reviewed are Neg Mental Status Examination Appearance: Appropriate Consciousness: Alert Orientation: Person Motor Activity: Normal gait Speech: Unremarkable Language: Adequate Fund of Knowledge: Inadequate Attention and Concentration: Adequate Memory: Unremarkable Mood: Anxious, Irritable Affect: Irritable Thought Process & Associations: Other ([place]) Thought Content: Delusional Hallucination Type: None Delusion Type: Somatic Suicidal Ideation: Yes Suicidal Plan: No Suicidal Intention: No Homicidal Ideation: No Homicidal Plan: No Homicidal Intention: No Insight: Poor Judgment: Poor Results Vitals/IOs Vital Signs Date Time Temp Pulse Resp B/P (MAP) Pulse Ox O2 Delivery O2 Flow Rate FiO2 01/14/18 06:29 97.3 50 18 89/42 (58) 100 Intake and Output 01/14/18 01/14/18 01/15/18 08:00 16:00 00:00 Intake Total 1000 ml Balance 1000 ml Assessment & Plan Problem List: (1) Schizoaffective disorder, bipolar type ICD Codes: F25.0 - Schizoaffective disorder, bipolar type Assessment & Plan Estimated LOS: days patient continues psychotic and delusional. Is scheduled for [facility] tomorrow. Medical services assessments notes and treatment recommendations reviewed and agreed with Justification for Cont. Inpt. At this time patient would decompensate a place to a lower level of care Discharge Planning To be determined Preston Cuellar MD Jan 14, 2018 15:51
[2018-01-14 18:00] VITALS: BP 85/46; PULSE 43; RESP 18; TEMP 97.4; O2SAT 93
[2018-01-14] MEDS: diphenhydrAMINE HCL 25 MG CAP PO SCH (21:00)
[2018-01-14] MEDS: BISACODYL EC 5 MG TABEC PO SCH (21:00)
[2018-01-15 06:32] VITALS: BP 82/45; PULSE 42; RESP 16; TEMP 97.6; O2SAT 97
--- NOTE | 2018-01-15 07:34 | HHI.PR ---
Subjective Remarks Follow-up visit for reported constipation and JASON. Nursing does not report any events overnight or this am. BP noted to be low, recheck BP 96/54. Patient is seen ambulating in her room and appears to be in no acute distress. She is asking when she will be able to go home. She reports urinating, denies moving her bowels, did manage to eat something last night. Denies any fevers, chills, N /V/D, abdominal pain, dizziness, lightheadedness, SOB, or chest pain. Objective Vitals Vital Signs Date Time Temp Pulse Resp B/P (MAP) Pulse Ox O2 Delivery O2 Flow Rate FiO2 01/15/18 06:32 97.6 42 16 82/45 (57) 97 01/14/18 18:00 97.4 43 18 85/46 (59) 93 I/O 01/14/18 01/14/18 01/14/18 01/15/18 01/15/18 01/15/18 07:00 15:00 23:00 07:00 15:00 23:00 Intake Total 1375 ml 240 ml Balance 1375 ml 240 ml Intake Oral 240 ml IV Total 1375 ml # Voids 1 Result Diagram: 01/11/18 1040 01/13/18 0836 Objective Remarks GENERAL: This is a thin appearing, well-developed patient, in no apparent distress. SKIN: Warm and dry. HEENT: Normocephalic. Pupils equal round. Nose without bleeding. Airway patent. NECK: Trachea midline. CARDIOVASCULAR: Regular without murmurs, gallops, or rubs. RESPIRATORY: Clear to auscultation. Breath sounds equal bilaterally. No wheezes , rales, or rhonchi. GASTROINTESTINAL: Abdomen soft, non-tender, nondistended. Bowel Sounds normoactive x4. MUSCULOSKELETAL: Extremities without clubbing, cyanosis, or edema. NEUROLOGICAL: Awake and alert. No focal neuro deficit. Moves all extremities. Appears depressed. A/P Assessment and Plan Patient is a 62-year-old female with past medical history of schizophrenia, mild ileus who initially came into hospital under [employer] act for psychiatric evaluation. Per review of records [place] the beach in [place]robe contemplating suicide. She is now admitted to inpatient psychiatry and further evaluation. Consulted for assistance with decreased renal function, complaints of constipation. Schizophrenia, bipolar disorder -Managed by psychiatry team HxMild ileus Constipation Poor p.o. intake -Poor p.o. intake, denies bowel movement today. Abdominal exam benign, soft, bowel sounds are present, nondistended. -KUB unremarkable with the exception of stool -Continue bowel regimen. -Hx obsession with bowel movements, known to me personally from prior admissions. -Nursing to monitor for voiding as well as bowel movements. - IVF for hydration, Megace for appetite. - Patient did report eating last night. Acute kidney injury Slightly elevated BUN and creatinine -Possibly secondary to dehydration -BMP improved -IVF Hypotension Bradycardia - Likely secondary to poor p.o. intake, hypotensive this am, recheck BP 94/54 , patient continues to be asymptomatic, ambulating in her room. - Continue NS 100ml/hr for hydration - Previously evaluated by cardiology on prior admission for bradycardia, she is asymptomatic. - Continue monitoring vs closely DVT prop early ambulation Discussed with nursing staff and patient. Vincent Fabian Jan 15, 2018 07:34
[2018-01-15 07:38] VITALS: BP 96/54
[2018-01-15] MEDS: ARIPiprazole 10 MG TAB PO SCH (10:23)
[2018-01-15] MEDS: FAMOTIDINE 20 MG TAB PO SCH (10:23)
[2018-01-15] MEDS: CHOLECALCIFEROL (VIT D3) 1000 UNIT TAB PO SCH (10:24)
[2018-01-15] MEDS: DOCUSATE SODIUM 50 MG/SENNA 8.6 MG TAB PO SCH ×2 (10:24→21:24)
[2018-01-15] MEDS: MEGESTROL ACETATE SUSP 400 MG/10 ML CUP PO SCH (10:24)
[2018-01-15] MEDS: LACTULOSE SYRUP 20 GM/30 ML CUP PO SCH (10:24)
[2018-01-15] MEDS: MULTIVITAMIN TAB PO SCH (10:24)
[2018-01-15] MEDS: SODIUM CHLOR 0.9% 1000 ML INJ 1,000 ML IV SCH ×2 (10:42→17:15)
--- NOTE | 2018-01-15 11:20 | HHI.PYPN ---
Subjective Remarks Patient seen [facility] patient retained by [facility] [employer] foul judge chart reviewed patient compliant medication. Patient continued with the delusions and court saying that she had "digestive problems" she continues with no insight into her disease. Patient remains on 4 E. due to her nutritional deficits she is being followed by the medicine service there treatment and recommendations reviewed and agreed with Review of Systems Except as stated in HPI: all other systems reviewed are Neg Mental Status Examination Appearance: Appropriate Consciousness: Alert Orientation: Person Motor Activity: Normal gait Speech: Unremarkable Language: Adequate Fund of Knowledge: Inadequate Attention and Concentration: Adequate Memory: Unremarkable Mood: Anxious, Irritable Affect: Irritable Thought Process & Associations: Other ([place]) Thought Content: Delusional Hallucination Type: None Delusion Type: Somatic Suicidal Ideation: Yes Suicidal Plan: No Suicidal Intention: No Homicidal Ideation: No Homicidal Plan: No Homicidal Intention: No Insight: Poor Judgment: Poor Results Vitals/IOs Vital Signs Date Time Temp Pulse Resp B/P (MAP) Pulse Ox O2 Delivery O2 Flow Rate FiO2 01/15/18 07:38 96/54 (68) 01/15/18 06:32 97.6 42 16 97 Intake and Output 01/15/18 01/15/18 01/16/18 08:00 16:00 00:00 Intake Total 0 ml 240 ml Balance 0 ml 240 ml Assessment & Plan Problem List: (1) Schizoaffective disorder, bipolar type ICD Codes: F25.0 - Schizoaffective disorder, bipolar type Assessment & Plan Estimated LOS: days patient retained by [facility] [employer] foul judge, guardian advocate appointed, patient continues delusional and psychotic Justification for Cont. Inpt. At this time patient would decompensate a place to a lower level of care Discharge Planning To be determined Preston Cuellar MD Jan 15, 2018 11:20
[2018-01-15 17:48] VITALS: BP 110/58; PULSE 70; RESP 18; TEMP 97.6; O2SAT 98
[2018-01-15] MEDS: diphenhydrAMINE HCL 25 MG CAP PO SCH (21:23)
[2018-01-15] MEDS: BISACODYL EC 5 MG TABEC PO SCH (21:23)
[2018-01-16] MEDS: SODIUM CHLOR 0.9% 1000 ML INJ 1,000 ML IV SCH (02:54)
[2018-01-16 06:07] VITALS: BP 114/51; PULSE 51; RESP 16; TEMP 97.7; O2SAT 98
--- NOTE | 2018-01-16 07:43 | HHI.PR ---
Subjective Remarks Follow-up visit for reported constipation, JASON, poor p.o. intake. She is awake and alert eating breakfast this morning, she is asking for more cereal to eat this morning. Continues to report constipation and is not able to remember when her last BM was, states she is urinating "a little". Reports pain "all over" since her bowels "shut down". Objective Vitals Vital Signs Date Time Temp Pulse Resp B/P (MAP) Pulse Ox O2 Delivery O2 Flow Rate FiO2 01/16/18 06:07 97.7 51 16 114/51 (72) 98 01/15/18 17:48 97.6 70 18 110/58 (75) 98 I/O 01/15/18 01/15/18 01/15/18 01/16/18 01/16/18 01/16/18 07:00 15:00 23:00 07:00 15:00 23:00 Intake Total 240 ml 480 ml 1060 ml 800 ml Balance 240 ml 480 ml 1060 ml 800 ml Intake Oral 240 ml 480 ml 760 ml IV Total 300 ml 800 ml # Voids 1 2 2 Result Diagram: 01/13/18 0836 Imaging Last Impressions Abdomen X-Ray 01/12/18 0000 Signed Impressions: CONCLUSION: Unremarkable study except for stool. Objective Remarks GENERAL: This is a thin appearing, well-developed patient, eating breakfast this morning in no acute distress. SKIN: Warm and dry. HEENT: Normocephalic. Pupils equal round. Nose without bleeding. Airway patent. NECK: Trachea midline. CARDIOVASCULAR: Regular without murmurs, gallops, or rubs. RESPIRATORY: Clear to auscultation. Breath sounds equal bilaterally. No wheezes , rales, or rhonchi. GASTROINTESTINAL: Abdomen soft, non-tender, nondistended. Bowel Sounds normoactive x4. MUSCULOSKELETAL: Extremities without clubbing, cyanosis, or edema. NEUROLOGICAL: Awake and alert. No focal neuro deficit. Moves all extremities. A/P Assessment and Plan Patient is a 62-year-old female with past medical history of schizophrenia, mild ileus who initially came into hospital under [facility] for psychiatric evaluation. Per review of records patient [place] the [place] in [place]robe contemplating suicide. She is now admitted to inpatient psychiatry and further evaluation. Consulted for assistance with decreased renal function, complaints of constipation. Schizophrenia, bipolar disorder -Managed by psychiatry team HxMild ileus Constipation Poor p.o. intake -Eating this morning asking for more serial. Abdominal exam benign, soft, bowel sounds are present, nondistended. -KUB unremarkable with the exception of stool -Continue bowel regimen. -Hx obsession with bowel movements, known to me personally from prior admissions. -Discussed with nursing staff keeping bathroom locked to monitor for bowel movement and urination - Will discontinue IV fluids for the moment since patient is eating, continue Megace for appetite Acute kidney injury, resolved Slightly elevated BUN and creatinine -Secondary to dehydration, BMP from this morning reviewed with mild hyponatremia. IV fluids discontinued since patient is eating. Hypotension Bradycardia -BP improved this morning, heart rate has been stable. - Previously evaluated by cardiology on prior admission for bradycardia, she is asymptomatic. -IV fluids discontinued, continue monitoring vital signs. DVT prop ambulation Discussed with nursing staff and patient. Vincent Fabian Jan 16, 2018 07:43
[2018-01-16] MEDS: ARIPiprazole 10 MG TAB PO SCH (08:23)
[2018-01-16] MEDS: LACTULOSE SYRUP 20 GM/30 ML CUP PO SCH (08:24)
[2018-01-16] MEDS: DOCUSATE SODIUM 50 MG/SENNA 8.6 MG TAB PO SCH ×2 (08:24→21:00)
[2018-01-16] MEDS: MEGESTROL ACETATE SUSP 400 MG/10 ML CUP PO SCH ×2 (08:24→08:33)
[2018-01-16] MEDS: MULTIVITAMIN TAB PO SCH (08:24)
[2018-01-16] MEDS: CHOLECALCIFEROL (VIT D3) 1000 UNIT TAB PO SCH (08:25)
[2018-01-16] MEDS: FAMOTIDINE 20 MG TAB PO SCH (08:25)
[2018-01-16 11:15] VITALS: BP 96/46; PULSE 64; RESP 16; TEMP 98.1; O2SAT 96
[2018-01-16 12:02] LABS: CALCIUM 8.8 MG/DL (8.5-10.1); CREATININE 0.92 MG/DL (0.50-1.00)
[2018-01-16 12:03] LABS: BICARBONATE 24.6 MEQ/L (21.0-32.0)
--- NOTE | 2018-01-16 17:06 | HHI.PYPN ---
Subjective Remarks Reviewed electronic medical records and discuss case with staff. Follow-up was conducted in patient's room where she was found lying in her bed. She continues with her delusions stating that she "cannot get anything to come out of me". She denies sleeping at all. Reports that she does not eat. However, staff indicate that patient has been in her bathroom on multiple occasions however, when approached she claims that she was "just washing my hands". He also reports that she has been eating at least 50% of her meals. Mental Status Examination Appearance: Appropriate Consciousness: Alert Orientation: Person Motor Activity: Normal gait Speech: Unremarkable Language: Adequate Fund of Knowledge: Inadequate Attention and Concentration: Adequate Memory: Unremarkable Mood: Anxious, Irritable Affect: Irritable Thought Process & Associations: Other ([place]) Thought Content: Delusional Hallucination Type: None Delusion Type: Somatic Suicidal Ideation: Yes Suicidal Plan: No Suicidal Intention: No Homicidal Ideation: No Homicidal Plan: No Homicidal Intention: No Insight: Poor Judgment: Poor Results Labs Test 01/16/18 09:29 Blood Urea Nitrogen 17 MG/DL Creatinine 0.92 MG/DL Random Glucose 71 MG/DL Calcium Level 8.8 MG/DL Sodium Level 146 MEQ/L Potassium Level 3.7 MEQ/L Chloride Level 111 MEQ/L Carbon Dioxide Level 24.6 MEQ/L Anion Gap 10 MEQ/L Estimat Glomerular Filtration Rate 62 ML/MIN Vitals/IOs Vital Signs Date Time Temp Pulse Resp B/P (MAP) Pulse Ox O2 Delivery O2 Flow Rate FiO2 01/16/18 11:15 98.1 64 16 96/46 (63) 96 Intake and Output 01/16/18 01/16/18 01/17/18 08:00 16:00 00:00 Intake Total 800 ml 720 ml Balance 800 ml 720 ml Assessment & Plan Problem List: (1) Schizoaffective disorder, bipolar type ICD Codes: F25.0 - Schizoaffective disorder, bipolar type Assessment & Plan Estimated LOS: Patient remains fixed in her delusions. Continue with current medical treatment. Days Justification for Cont. Inpt. Moving this patient to a lower level of care would result in decompensation. Donna Sumner Jan 16, 2018 17:06
[2018-01-16 18:52] VITALS: BP 114/51; PULSE 57; RESP 16; TEMP 98; O2SAT 96
[2018-01-16] MEDS: diphenhydrAMINE HCL 25 MG CAP PO SCH (21:00)
[2018-01-16] MEDS: BISACODYL EC 5 MG TABEC PO SCH (21:00)
[2018-01-17 06:00] VITALS: BP 110/52; PULSE 52; RESP 16; TEMP 97.6; O2SAT 96
[2018-01-17] MEDS: ARIPiprazole 10 MG TAB PO SCH (08:37)
[2018-01-17] MEDS: DOCUSATE SODIUM 50 MG/SENNA 8.6 MG TAB PO SCH ×2 (08:38→21:00)
[2018-01-17] MEDS: MULTIVITAMIN TAB PO SCH (08:38)
[2018-01-17] MEDS: FAMOTIDINE 20 MG TAB PO SCH (08:38)
[2018-01-17] MEDS: CHOLECALCIFEROL (VIT D3) 1000 UNIT TAB PO SCH (08:38)
[2018-01-17] MEDS: LACTULOSE SYRUP 20 GM/30 ML CUP PO SCH (08:44)
[2018-01-17] MEDS: MEGESTROL ACETATE SUSP 400 MG/10 ML CUP PO SCH (08:45)
--- NOTE | 2018-01-17 09:52 | HHI.PR ---
Subjective Remarks Follow-up visit for constipation, JASON, hypotension, and poor p.o. intake. Spoke with nurse reports yesterday patient ate very well, this morning is also eating her entire breakfast with the exception of tirado. Patient has been observed making multiple trips into the bathroom. Patient is seen and examined resting in bed comfortably in no acute distress. She continues to report that she has not had a bowel movement in 2 months. She denies any shortness of breath, cough, nausea, vomiting, chest pain, dizziness, lightheadedness or headaches. Objective Vitals Vital Signs Date Time Temp Pulse Resp B/P (MAP) Pulse Ox O2 Delivery O2 Flow Rate FiO2 01/17/18 06:00 97.6 52 16 110/52 (71) 96 01/16/18 18:52 98.0 57 16 114/51 (72) 96 01/16/18 11:15 98.1 64 16 96/46 (63) 96 I/O 01/16/18 01/16/18 01/16/18 01/17/18 01/17/18 01/17/18 07:00 15:00 23:00 07:00 15:00 23:00 Intake Total 800 ml 720 ml 1440 ml 0 ml 720 ml Balance 800 ml 720 ml 1440 ml 0 ml 720 ml Intake Oral 720 ml 1440 ml 0 ml 720 ml IV Total 800 ml # Voids 2 0 0 Result Diagram: 01/16/18 0929 Imaging Last Impressions Abdomen X-Ray 01/12/18 0000 Signed Impressions: CONCLUSION: Unremarkable study except for stool. Objective Remarks GENERAL: This is a thin appearing, well-developed patient, in no acute distress resting in bed. SKIN: Warm and dry. HEENT: Normocephalic. Pupils equal round. Nose without bleeding. Airway patent. NECK: Trachea midline. CARDIOVASCULAR: Regular without murmurs, gallops, or rubs. RESPIRATORY: Clear to auscultation. Breath sounds equal bilaterally. No wheezes , rales, or rhonchi. GASTROINTESTINAL: Abdomen soft, non-tender, nondistended. Bowel Sounds normoactive x4. MUSCULOSKELETAL: Extremities without clubbing, cyanosis, or edema. NEUROLOGICAL: Awake and alert. No focal neuro deficit. Moves all extremities. A/P Assessment and Plan Patient is a 62-year-old female with past medical history of schizophrenia, mild ileus who initially came into hospital under [employer] act for psychiatric evaluation. Per review of records patient [place] the beach in her bathrobe contemplating suicide. She is now admitted to inpatient psychiatry and further evaluation. Consulted for assistance with decreased renal function, complaints of constipation. Schizophrenia, bipolar disorder -Managed by psychiatry team HxMild ileus Constipation Poor p.o. intake -Has been eating well yesterday and today. Abdominal exam benign, soft, bowel sounds are present, nondistended. -KUB unremarkable with the exception of stool -Continue bowel regimen. -Hx obsession with bowel movements, known to me personally from prior admissions. -Nursing staff unable to completely lock bathroom although has observed patient making multiple trips to the restroom. -IV fluids have been discontinued, vital signs are stable. Continue Megace for appetite stimulation. Acute kidney injury, resolved Slightly elevated BUN and creatinine -Secondary to dehydration, BMP with mild hyponatremia. IV fluids discontinued since patient is eating. Hypotension Bradycardia -BP improved this morning, heart rate has been stable. - Previously evaluated by cardiology on prior admission for bradycardia, she is asymptomatic. -IV fluids discontinued, vital signs stable. DVT prop ambulation Discussed with nursing staff and patient. [facility] will sign off. Patient should be okay to transfer back to regular psychiatry floor. Please reconsult if needed. Vincent Fabian Jan 17, 2018 09:52
[2018-01-17 12:22] VITALS: BP 99/48; PULSE 69; RESP 18; O2SAT 96
[2018-01-17 18:00] VITALS: BP 92/52; PULSE 62; RESP 16; TEMP 98; O2SAT 97
--- NOTE | 2018-01-17 18:21 | HHI.PYPN ---
Subjective Remarks Reviewed electronic medical records and discussed case with staff. Nurse reports no improvement in patient's condition. States that patient has been eating all of her meals. Follow-up was conducted in patient's room. Patient sitting in bed awake and alert. She continues reporting that she sleeps okay that she is eating all of her food however, she still denies having any bowel movements. She continues with the body dysmorphia believing that the feces is in her muscle. Mental Status Examination Appearance: Appropriate Consciousness: Alert Orientation: Person Motor Activity: Normal gait Speech: Unremarkable Language: Adequate Fund of Knowledge: Inadequate Attention and Concentration: Adequate Memory: Unremarkable Mood: Anxious, Irritable Affect: Irritable Thought Process & Associations: Other ([place]) Thought Content: Delusional Hallucination Type: None Delusion Type: Somatic Suicidal Ideation: Yes Suicidal Plan: No Suicidal Intention: No Homicidal Ideation: No Homicidal Plan: No Homicidal Intention: No Insight: Poor Judgment: Poor Results Vitals/IOs Vital Signs Date Time Temp Pulse Resp B/P (MAP) Pulse Ox O2 Delivery O2 Flow Rate FiO2 01/17/18 18:00 98.0 62 16 92/52 (65) 97 Intake and Output 01/17/18 01/17/18 01/18/18 08:00 16:00 00:00 Intake Total 720 ml 1680 ml 480 ml Balance 720 ml 1680 ml 480 ml Assessment & Plan Problem List: (1) Schizoaffective disorder, bipolar type ICD Codes: F25.0 - Schizoaffective disorder, bipolar type Assessment & Plan Estimated LOS: Patient's delusions remained fixed at this time. Continue with current treatment plan. Days Justification for Cont. Inpt. Review this patient to a lower level of care would likely result in decompensation. Donna Sumner Jan 17, 2018 18:21
[2018-01-17] MEDS: BISACODYL EC 5 MG TABEC PO SCH (21:00)
[2018-01-17] MEDS: diphenhydrAMINE HCL 25 MG CAP PO SCH (21:00)
[2018-01-18 06:31] VITALS: BP 105/52; PULSE 57; RESP 18; TEMP 97.9; O2SAT 96
[2018-01-18] MEDS: MEGESTROL ACETATE SUSP 400 MG/10 ML CUP PO SCH (08:11)
[2018-01-18] MEDS: DOCUSATE SODIUM 50 MG/SENNA 8.6 MG TAB PO SCH ×2 (08:11→20:19)
[2018-01-18] MEDS: LACTULOSE SYRUP 20 GM/30 ML CUP PO SCH (08:11)
[2018-01-18] MEDS: FAMOTIDINE 20 MG TAB PO SCH (08:11)
[2018-01-18] MEDS: ARIPiprazole 10 MG TAB PO SCH (08:11)
[2018-01-18] MEDS: CHOLECALCIFEROL (VIT D3) 1000 UNIT TAB PO SCH (08:11)
[2018-01-18] MEDS: MULTIVITAMIN TAB PO SCH (08:11)
--- NOTE | 2018-01-18 16:02 | HHI.PYPN ---
Subjective Remarks The patient has been seen today for psychiatric reevaluation. Case discussed with nurses. The patient is poorly engageable in a conversation, with a prominent respiratory speech, flat affect, anhedonia, blocking thought. lack of motivation. However, different than the last time I saw her, today at least she is answering with monosyllables some of my questions. She denies suicidal enemas ideation, she denies visual and auditory hallucinations. Still refusing medications, eating poorly Mental Status Examination Appearance: Appropriate Consciousness: Alert Orientation: Person Motor Activity: Normal gait Speech: Unremarkable Language: Adequate Fund of Knowledge: Inadequate Attention and Concentration: Adequate Memory: Unremarkable Mood: Anxious, Irritable Affect: Irritable Thought Process & Associations: Other ([place]) Thought Content: Delusional Hallucination Type: None Delusion Type: Somatic Suicidal Ideation: Yes Suicidal Plan: No Suicidal Intention: No Homicidal Ideation: No Homicidal Plan: No Homicidal Intention: No Insight: Poor Judgment: Poor Results Vitals/IOs Vital Signs Date Time Temp Pulse Resp B/P (MAP) Pulse Ox O2 Delivery O2 Flow Rate FiO2 01/18/18 06:31 97.9 57 18 105/52 (69) 96 Intake and Output 01/18/18 01/18/18 01/19/18 08:00 16:00 00:00 Intake Total 0 ml Balance 0 ml Assessment & Plan Problem List: (1) Schizoaffective disorder, bipolar type ICD Codes: F25.0 - Schizoaffective disorder, bipolar type Assessment & Plan: Patient will continue current psychotropic regimen. Brief supportive psychotherapy provided Assessment & Plan Estimated LOS: days Justification for Cont. Inpt. Patient has a significant psychotic depression. She needs to continue psychiatric hospitalization for stabilization Khadar Constantino MD Jan 18, 2018 16:02
[2018-01-18 18:09] VITALS: BP 100/50; PULSE 59; RESP 16; TEMP 98; O2SAT 95
[2018-01-18] MEDS: diphenhydrAMINE HCL 25 MG CAP PO SCH (20:19)
[2018-01-18] MEDS: BISACODYL EC 5 MG TABEC PO SCH (20:19)
[2018-01-19 05:16] VITALS: BP 108/54; PULSE 59; RESP 15; TEMP 98.2; O2SAT 95
[2018-01-19] MEDS: FAMOTIDINE 20 MG TAB PO SCH (08:59)
[2018-01-19] MEDS: MULTIVITAMIN TAB PO SCH (08:59)
[2018-01-19] MEDS: ARIPiprazole 10 MG TAB PO SCH (08:59)
[2018-01-19] MEDS: CHOLECALCIFEROL (VIT D3) 1000 UNIT TAB PO SCH (08:59)
[2018-01-19] MEDS: DOCUSATE SODIUM 50 MG/SENNA 8.6 MG TAB PO SCH ×2 (09:00→20:12)
[2018-01-19] MEDS: MEGESTROL ACETATE SUSP 400 MG/10 ML CUP PO SCH (09:00)
[2018-01-19] MEDS: LACTULOSE SYRUP 20 GM/30 ML CUP PO SCH (09:00)
[2018-01-19 18:00] VITALS: BP 95/49; PULSE 63; RESP 16; TEMP 97.8; O2SAT 97
[2018-01-19] MEDS: BISACODYL EC 5 MG TABEC PO SCH (20:12)
[2018-01-19] MEDS: diphenhydrAMINE HCL 25 MG CAP PO SCH (20:12)
--- NOTE | 2018-01-19 20:46 | HHI.PYPN ---
Subjective Remarks Reviewed electronic medical records and discussed case with staff. Patient remains fixed in her delusion that feces is accumulating in her body tissues. She denies any changes. States she is eating but "nothing is coming out". Staff report no changes with her. She remains rather irritable and dysphoric in mood. This may be her baseline. Mental Status Examination Appearance: Appropriate Consciousness: Alert Orientation: Person Motor Activity: Normal gait Speech: Unremarkable Language: Adequate Fund of Knowledge: Inadequate Attention and Concentration: Adequate Memory: Unremarkable Mood: Anxious, Irritable Affect: Irritable Thought Process & Associations: Other ([place]) Thought Content: Delusional Hallucination Type: None Delusion Type: Somatic Suicidal Ideation: Yes Suicidal Plan: No Suicidal Intention: No Homicidal Ideation: No Homicidal Plan: No Homicidal Intention: No Insight: Poor Judgment: Poor Results Vitals/IOs Vital Signs Date Time Temp Pulse Resp B/P (MAP) Pulse Ox O2 Delivery O2 Flow Rate FiO2 01/19/18 18:00 97.8 63 16 95/49 (64) 97 Intake and Output 01/19/18 01/19/18 01/20/18 08:00 16:00 00:00 Intake Total 360 ml 1080 ml 480 ml Balance 360 ml 1080 ml 480 ml Assessment & Plan Problem List: (1) Schizoaffective disorder, bipolar type ICD Codes: F25.0 - Schizoaffective disorder, bipolar type Assessment & Plan Estimated LOS: Discharge planning in progress. Continue with current treatment plan. Review her medications tomorrow for possible titration. Days Justification for Cont. Inpt. Patient continues to remain fixated in her delusions. Discharge planning is being looked at. However, there is every reason to believe after the last failed attempt at discharge would result in her again refusing food and drink. Donna Sumner Jan 19, 2018 20:46
[2018-01-20] MEDS: ARIPiprazole 10 MG TAB PO SCH (09:00)
[2018-01-20] MEDS: CHOLECALCIFEROL (VIT D3) 1000 UNIT TAB PO SCH (09:00)
[2018-01-20] MEDS: LACTULOSE SYRUP 20 GM/30 ML CUP PO SCH (09:00)
[2018-01-20] MEDS: MULTIVITAMIN TAB PO SCH (09:22)
[2018-01-20] MEDS: FAMOTIDINE 20 MG TAB PO SCH (09:22)
[2018-01-20] MEDS: DOCUSATE SODIUM 50 MG/SENNA 8.6 MG TAB PO SCH (09:22)
[2018-01-20] MEDS ORDERED: Megestrol Liq PO (14:20)
[2018-01-20] MEDS ORDERED: FAMO20TA2 PO (14:20)
[2018-01-20] MEDS ORDERED: VENTAER INH (14:20)
[2018-01-20] MEDS ORDERED: ARIP1TAB14 PO (14:20)
[2018-01-20] MEDS ORDERED: FLEE5TAB PO (14:20)
[2018-01-20] MEDS ORDERED: VITA1000 PO (14:20)
[2018-01-20] MEDS ORDERED: IBUP1TAB7 PO (14:20)
[2018-01-20] MEDS ORDERED: DIPH50CA PO (14:20)
[2018-01-20] MEDS ORDERED: MULT-65 PO (14:20)
[2018-01-20] MEDS ORDERED: PERI PO (14:20)
[2018-01-20] MEDS ORDERED: Lactulose Liq PO (14:20)
--- NOTE | 2018-01-20 14:22 | HHI.DS ---
Psychiatry Discharge Summary Inpatient Psychiatric care?: Yes Advance Directive: No Reason Not Provided: Due to Patient Condition Mental Health AdvanceDirective: No Health Care Proxy: No Admission Admission Date Jan 11, 2018 at 15:30 Admission Diagnosis: (1) Schizoaffective disorder, bipolar type ICD Code: F25.0 - Schizoaffective disorder, bipolar type Brief History The patient is 62-year-old woman, domiciled in [facility] in [facility], single, unemployed, supported by [facility] [facility], mother of a 33 years old daughter, with psychiatric history of schizophrenia, schizoaffective disorder, multiple psychiatric admissions, the last psychiatric admission was here in [place] in December 2017, has a FACT TEAM, outpatient psychiatric care with Dr. Wan , she is on Abilify 20 mg daily, she has history of ECT , no significant medical history, who presents to the ED under [place] act after recent suicide attempt in which she walked into the ocean in the context of continued persistent delusions of inability to eliminates ways for her body which they continue to accumulate in her body which patient was admitted to the inpatient psychiatry for further evaluation and management. Patient was found lying hospital bed noted be superficially cooperative, irritable stating that she feels "pretty crappy" and states that she gave up and try to kill herself. She states that she went into the ocean but had become feeling scared that she was unable to test the floor and return back to her assisted living facility and management to that when she had done which I will was activated the patient was brought to the hospital. Patient states that her memory is gone and that she had lost the ability to go to the bathroom and has no desire to live due to this stating that she has a illness which continues to "builds up and builds up in my body". Patient denies any abdominal pain only stating that she feels pressure all over her body. Patient continues to endorse suicidal ideations denying any perceptional services but continues with this delusion. Past psychiatric history: Previous psychiatric diagnoses schizophrenia versus schizoaffective disorder, multiple psychiatric admissions, previous suicide attempts, currently on FACT team, prior history of treatment of ECT and currently on aripiprazole 20 mg p.o. daily Substance use history: Denies Past medical history: Denies Allergies: Chlorpromazine, codeine, Depakote, Haldol, thioridazine, thiothixene Social history: Raised in [place], single, unemployed on SSI, has 1 adult daughter, highest education is 12th grade, domiciled at assisted living facility. Tobacco Use In Past 30 Days: No Tobacco Past 30 Days Alcohol Use: Never Hospital Course This patient was admitted to a locked psychiatric unit. All safety precautions were maintained throughout the stay. Patient was followed on a daily basis by a psychiatric provider as well as a case manager specialist. Throughout her visit her medications were titrated and she was observed for oral intake. Staff reported that the patient consumed most of her meals throughout the stay and was seen multiple times a day entering and leaving the bathroom. However, she remains fixed in the delusion that she does not have bowel movements and that her fecal matter accumulates in her body tissue. Upon examination today, as with other days she is awake, alert, and oriented. She is found lying in bed watching television. Her speech is clear, logical, and organized. Her mood is irritable and her affect is irritable. She denies suicidal ideation, homicidal ideation, auditory or visual hallucinations. There is no indication of internal stimulation or thought blocking. Patient is neither psychotic or manic. There is no reason to believe that she has an eminent danger to herself or others. I believe she has reached maximum benefit from this inpatient admission as she seems to be back to her baseline. Patient will be discharged to an assisted living facility. She is counseled to return to the nearest hospital should her condition worsen. Results Blood Pressure 95 / 49 Vital Signs Date Time Temp Pulse Resp B/P (MAP) Pulse Ox O2 Delivery O2 Flow Rate FiO2 01/19/18 18:00 97.8 63 16 95/49 (64) 97 Laboratory Tests Test 01/11/18 10:40 01/12/18 05:25 01/16/18 09:29 White Blood Count 6.3 TH/MM3 Red Blood Count 4.74 MIL/MM3 Hemoglobin 14.9 GM/DL Hematocrit 43.4 % Mean Corpuscular Volume 91.7 FL Mean Corpuscular Hemoglobin 31.5 PG Mean Corpuscular Hemoglobin Concent 34.4 % Red Cell Distribution Width 13.1 % Platelet Count 306 TH/MM3 Mean Platelet Volume 8.4 FL Neutrophils (%) (Auto) 78.2 % Lymphocytes (%) (Auto) 17.0 % Monocytes (%) (Auto) 3.6 % Eosinophils (%) (Auto) 0.2 % Basophils (%) (Auto) 1.0 % Neutrophils # (Auto) 5.0 TH/MM3 Lymphocytes # (Auto) 1.1 TH/MM3 Monocytes # (Auto) 0.2 TH/MM3 Eosinophils # (Auto) 0.0 TH/MM3 Basophils # (Auto) 0.1 TH/MM3 CBC Comment DIFF FINAL Differential Comment Blood Urea Nitrogen 30 MG/DL 17 MG/DL Creatinine 1.33 MG/DL 0.92 MG/DL Random Glucose 92 MG/DL 71 MG/DL Total Protein 8.4 GM/DL Albumin 4.8 GM/DL Calcium Level 9.8 MG/DL 8.8 MG/DL Alkaline Phosphatase 46 U/L Aspartate Amino Transf (AST/SGOT) 20 U/L Alanine Aminotransferase (ALT/SGPT) 25 U/L Total Bilirubin 0.5 MG/DL Sodium Level 140 MEQ/L 146 MEQ/L Potassium Level 4.1 MEQ/L 3.7 MEQ/L Chloride Level 106 MEQ/L 111 MEQ/L Carbon Dioxide Level 23.0 MEQ/L 24.6 MEQ/L Thyroid Stimulating Hormone 3rd Gen 0.836 uIU/ML Ethyl Alcohol Level LESS THAN 3 MG/DL Urine Opiates Screen NEG Urine Barbiturates Screen NEG Urine Amphetamines Screen NEG Urine Benzodiazepines Screen NEG Urine Cocaine Screen NEG Urine Cannabinoids Screen NEG Anion Gap 10 MEQ/L Estimat Glomerular Filtration Rate 62 ML/MIN Summary of Procedures n/a Imaging Last Impressions Abdomen X-Ray 01/12/18 0000 Signed Impressions: CONCLUSION: Unremarkable study except for stool. Pending results at discharge: No Medications # of Antipsychotic meds at D/C: 1 Approp Antipsych med options 1 - Minimum of three failed multiple trials of monotherapy. 2 - Documented plan to taper to monotherapy due to previous use of multiple meds OR cross-taper in progress at D/C. 3 - Documentation of augmentation of Clozapine. 4 - Justification other than those listed in allowable values 1-3, document here : Discharge Discharge Date: Jan 20, 2018 Discharge Diagnosis: (1) Schizoaffective disorder, bipolar type ICD Code: F25.0 - Schizoaffective disorder, bipolar type Pt Condition on Discharge: Stable Discharge Disposition: [facility] Discharge Instructions Diet Instructions: As Tolerated, No Restrictions Activities you can perform: Regular-No Restrictions Scheduled Appointment: Facility provider Appointment Date: Jan 21, 2018 Appointment Time: 08:30am Discharge Time > 30 minutes Mental Status Examination Appearance: Appropriate Consciousness: Alert Orientation: Person Motor Activity: Normal gait Speech: Unremarkable Language: Adequate Fund of Knowledge: Inadequate Attention and Concentration: Adequate Memory: Unremarkable Mood: Anxious, Irritable Affect: Irritable Thought Process & Associations: Other ([place]) Thought Content: Delusional Hallucination Type: None Delusion Type: Somatic Suicidal Ideation: Yes Suicidal Plan: No Suicidal Intention: No Homicidal Ideation: No Homicidal Plan: No Homicidal Intention: No Insight: Poor Judgment: Poor Discharge/Advance Care Plan Health Problems: (1) Schizoaffective disorder, bipolar type Goals to promote your health * To prevent worsening of your condition and complications * To maintain your health at the optimal level Directions to meet your goals Take your medications as prescribed Follow your dietary instruction Follow activity as directed Keep your appointments as scheduled Take your immunizations and boosters as scheduled If your symptoms worsen call your PCP, if no PCP go to Urgent Care Center or Emergency Room For 24 questions related to your inpatient stay or results of tests pending at discharge, please contact Dr. Donna Sumner at Smoking is Dangerous to Your Health. Avoid second hand smoking Donna Sumner Jan 20, 2018 14:22
== END 2018-01-20 14:45 | DRG 885 ==
LOC: NEDAMB 10:20 → NEDA 15:30 → H260 17:40 → H4EA 01-14 12:15
PROVIDERS: ADMIT Student in an Organized Health Care Education/Training Program; ATTEND Student in an Organized Health Care Education/Training Program
DX: F25.0 Schizoaffective disorder, bipolar type (principal); N17.9 Acute kidney failure, unspecified; I95.9 Hypotension, unspecified; E87.1 Hypo-osmolality and hyponatremia; K56.7 Ileus, unspecified; R45.851 Suicidal ideations; E86.0 Dehydration; R00.1 Bradycardia, unspecified; E78.5 Hyperlipidemia, unspecified; E55.9 Vitamin D deficiency, unspecified; M19.90 Unspecified osteoarthritis, unspecified site; F17.210 Nicotine dependence, cigarettes, uncomplicated; Z88.5 Allergy status to narcotic agent; Z91.5 Personal history of self-harm
CPT/HCPCS: 74018; 80048; 80053; 80307; 84443; 85025; 99285; J7030